=== PATIENT | female | born 1960 | race Hispanic/Latino ===

== ENCOUNTER 2024-12-08 06:37 | Inpatient (IN) | payer BC, MEDICARE, OTHER ==
[2024-12-08] VITALS (8 sets, daily range): BP systolic 98–130; BP diastolic 45–75; PULSE 78–88; RESP 16–20; TEMP 97.6–98.6; O2SAT 97
[~2024-12-08] VITALS: Ht 149.9 cm; Wt 85.7 kg
--- NOTE | 2024-12-08 06:56 | EKG ---
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 : 1960 Requested By: LISA GOSS Order Number: [id number] Reading MD: Bharathi Galicia Measurements Intervals [place] Rate: 98 P: 206 CT: 176 QRS: 27 QRSD: 190 T: 195 QT: 445 QTc: 569 Interpretive Statements Sinus or ectopic atrial rhythm Nonspecific Intraventricular Conduction Delay IVCD Compared to ECG 10/14/2022 07:14:14 Ectopic atrial rhythm now present Intraventricular conduction delay now present ST (T wave) deviation now present Sinus rhythm no longer present First degree AV block no longer present Electronically Signed On 12-08-2024 07:09:30 CDT by Bharathi Galicia Please click the below link to view image of tracing.
[2024-12-08 07:07] LABS: IMMATURE GRANULOCYTE ABSOLUTE 0.03 K/uL (0-1); NUCLEATED RED BLOOD CELLS 0.0 % (0.0-0.19); PLATELET COUNT (AUTO) 181 K/uL (130-400); RED BLOOD CELL COUNT(AUTO) 4.65 MIL/uL (4.00-5.50); RED CELL DISTRIBUTION WIDTH 13.7 % (11.0-15.5); WHITE BLOOD COUNT (AUTO) 9.1 K/uL (4.8-10.8)
[2024-12-08 07:18] LABS: CREATININE 0.7 mg/dL (0.5-1.0); GLOMERULAR FILTR. RATE CALC 95.0 mL/min (>90); SODIUM SERUM 138.0 mmol/L (136-145); UREA NITROGEN, BLOOD 6.0 mg/dL (7-18)
[2024-12-08 07:28] LABS: GLUCOSE,RANDOM 405.0 mg/dL (70-105)
--- NOTE | 2024-12-08 07:41 | HMCIMG ---
EXAM: CR Chest, single view. CLINICAL HISTORY: Shortness of breath COMPARISON: Prior chest radiograph dated October 15, 2022 FINDINGS: Poststernotomy status. Moderate cardiomegaly with bilateral hilar congestion. Patchy, ill-defined infiltrates in the bilateral lower lobes and subtle blunting of the bilateral costophrenic angle are probably a minimal bilateral pleural effusion. No evidence of pneumothorax. Stable 12 mm nodular density in the right upper zone. No acute osseous abnormality. Mild degenerative changes in the mid and lower thoracic spine. IMPRESSION: Poststernotomy status. Moderate cardiomegaly with bilateral hilar congestion. Patchy, ill-defined infiltrates in the bilateral lower lobes and subtle blunting of the bilateral costophrenic angle are probably a minimal bilateral pleural effusion. No evidence of pneumothorax. Stable 12 mm nodular density in the right upper zone. Compared to the prior study, there is a mild decrease in the right-sided pleural effusion and interval development of right lower lobe infiltrates. /[place]
[2024-12-08] MEDS: 0.9%NACL 1000ML 1,000 ML IV ONE (08:13)
[2024-12-08 10:14] LABS: INR 1.59 (0.85-1.15)
[2024-12-08 10:30] LABS: ASPARTATE AMINOTRANSFERASE 66.0 U/L (10-37); LACTATE DEHYDROGENASE 273.0 U/L (81-234); TOTAL PROTEIN, SERUM 7.3 g/dL (6.0-8.3)
--- NOTE | 2024-12-08 10:37 | HP ---
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 last night. Patient states that she woke up feeling short of breath with dizziness and she felt like she may have low sugar. Patient does not have a home glucometer but she states that due to her symptoms, she put some sugar in a glass of water and drank it to see if it relieves her symptoms. She continued to have symptoms of shortness of breath and generalized uneasiness and she drank some coffee to see if symptoms improve. Patient's symptoms did not improve prompting her to come to the ER for further evaluation. Patient denies any previous history of stroke or seizures. She has not been able to follow up with Cardiology as outpatient june and she has significant cardiac history including history of severe ischemic cardiomyopathy with LVEF of 20-25% from 2D echocardiogram from 2022, she has a history of mechanical aortic valve and coronary artery bypass grafting in 2004. She reports taking Coumadin 2 mg daily. She will is followed by PCP with regards to management of Coumadin. She denies any fevers, chills, or productive cough. She denies noticing significant swelling of the lower extremity or weight gain. She denies any pleurisy. On presentation to the hospital, patient was noted to be afebrile with T-max of 98.2 F, heart rate of 108, blood pressure of 138/76. Patient was saturating 90% on room air. Labs on presentation showed WBC count of 9100, hemoglobin of 14.4, platelet count of [id number]. BMP showed sodium of 138, potassium 3.8, chloride of 103, CO2 of 26, BUN of six, creatinine of 0.7, blood glucose of 405, BNP close to 1000, cardiac troponin showed high sensitivity troponin of 48. Chest x-ray showed cardiomegaly with bilateral hilar congestion and ill-defined infiltrates of the bilateral lobes with minimal pleural effusion. Patient was also noted to have 12 mm nodular density in the right upper lobe. Patient will be admitted for further treatment and management of acute on chronic systolic and diastolic heart failure exacerbation in the setting of known history of advanced cardiomyopathy. Blood sugars are uncontrolled, patient will be sliding on basal Lantus for further management. We will see how patient progresses in the next 2-3 days and we will obtain further cardiac workup and consultation with Cardiology will be requested this admission. REVIEW OF SYSTEMS CONSTITUTIONAL: Denies fevers, chills, or night sweats. No unintentional weight loss reported. NEUROLOGICAL: Denies headache, amaurosis fugax, motor weakness, sensory deficit, vertigo/spinning sensation, gait abnormalities, or tremors. ENT: No hearing loss, otalgia, otorrhea, rhinitis, rhinorrhea, hoarseness, or sore throat. CARDIOVASCULAR: Shortness of breath close to 4:00 a.m. today with generalized fatigue PULMONARY: Denies any shortness of breath, cough, phlegm/sputum, hemoptysis, pleuritic chest pain. SLEEP: Denies morning headaches, daytime somnolence or napping. Denies dif ficulty falling asleep, staying asleep, waking from sleep. Denies knowledge of snoring. GASTROINTESTINAL: Denies any type of dysphagia to either liquids or solids. Denies nausea, vomiting, pyrosis, early satiety, abdominal pain, diarrhea, constipation, or changes in stool consistency or caliber. Denies coffee-ground emesis, hematemesis, hematochezia, or melanotic stools. GENITOURINARY: Denies frequency, urgency, nocturia, hematuria or incontinence (Storage/Irritative symptoms.) Low urinary stream, straining to void, urinary intermittency or hesitancy, splitting of the voiding stream, terminal dribbling. ENDOCRINOLOGIC: Denies polyuria, polydipsia, polyphagia or heat/cold i ntolerances. HEMATOLOGIC: Denies thrombophilia/previous clots, or coagulopathy/bleeding disorders. ONCOLOGIC: Denies personal history of malignancy. DERMATOLOGIC: Denies rashes or pruritus. PSYCHIATRIC: Denies any suicidal or homicidal ideation. Denies hallucinations. 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 Patient is sitting up in the bed, she is obese NEUROLOGICAL: Cranial nerves II-XII grossly intact. Motor is 5/5 in bilateral upper and lower extremities proximal to distal. No sensory deficits. HEENT: Face is symmetric. Pupils are equal and reactive. Extraocular movements are intact. NECK: Supple. No JVD. No thyromegaly. No submental, submandibular, pre- /postauricular, occipital or supraclavicular lymphadenopathy. CHEST: Normal chest expansion. No Telemetry. LUNGS: Crackles noted of bilateral lung bases CARDIOVASCULAR: Regular. Mechanical click auscultated. No appreciable rubs, murmurs or gallops. ABDOMEN: Soft, nontender, and nondistended. There is no rebound, voluntary guarding, or rigidity. : Deferred. No [place]gu[place]. EXTREMITIES: Trace edema of the lower extremities. No clubbing. Good capillary refill. SKIN: No skin breakdown. Vital Sign (Last 24 Hours) 12/08/24 12/08/24 06:58 09:00 Temp 98.2 Pulse 74 Resp 20 B/P (MAP) 124/58 Pulse Ox 99 O2 Delivery Room Air* O2 Flow Rate 0 FiO2 21 LABS: Laboratory: Test 12/08/24 07:00 Range/Units White Blood Count 9.1 4.8-10.8 K/uL Red Blood Count 4.65 4.00-5.50 MIL/uL Hemoglobin 14.4 12.0-16.0 g/dL Hematocrit 43.0 36-48 % Mean Corpuscular Volume 92.5 79-99 fL Mean Corpuscular Hemoglobin 31.0 27.0-33.0 pg Mean Corpuscular Hemoglobin Concent 33.5 32.0-36.0 g/dL Red Cell Distribution Width 13.7 11.0-15.5 % Platelet Count 181 130-400 K/uL Mean Platelet Volume 10.7 H 7.5-10.5 fL Immature Granulocyte % (Auto) 0.3 0-1 % Neutrophils (%) (Auto) 73.4 40.0-77.0 % Lymphocytes (%) (Auto) 18.9 L 21.0-51.0 % Monocytes (%) (Auto) 5.3 3.0-13.0 % Eosinophils (%) (Auto) 1.6 0.0-8.0 % Basophils (%) (Auto) 0.5 0.0-5.0 % Neutrophils # (Auto) 6.7 1.8-7.7 K/uL Lymphocytes # (Auto) 1.7 1.0-4.8 K/uL Monocytes # (Auto) 0.5 0.1-1.0 K/uL Eosinophils # (Auto) 0.15 0.00-0.70 K/uL Basophils # (Auto) 0.05 0.00-0.20 K/uL Absolute Immature Granulocyte (auto 0.03 0-1 K/uL Nucleated Red Blood Cells 0.0 0.0-0.19 % Prothrombin Time 16.1 H 9.6-11.6 SEC Prothromb Time International Ratio 1.59 H 0.85-1.15 Activated Partial Thromboplast Time 30.5 26.3-35.5 SEC Sodium Level 138 136-145 mmol/L Potassium Level 3.8 3.5-5.1 mmol/L Chloride Level 103 101-111 mmol/L Carbon Dioxide Level 26 21-32 mmol/L Blood Urea Nitrogen 6 L 7-18 mg/dL Creatinine 0.7 0.5-1.0 mg/dL Glomerular Filtration Rate Calc 95 >90 mL/min Random Glucose 405 *H 70-105 mg/dL Total Calcium 9.0 8.5-10.1 mg/dL Troponin I High Sensitivity 48 4-50 ng/L B-Type Natriuretic Peptide 954 H 0-100 pg/mL Current Medications Medications (Trade) Dose Ordered Sig/Eliecer Route PRN Reason Start Time Stop Time Status Last Admin Dose Admin Acetaminophen (TYLenol 325MG TAB) 650 mg Q6H PRN PO MILD PAIN (1-3) 12/08/24 10:00 01/07/25 09:59 Budesonide (Pulmicort 0.5 Mg/2ml) 0.5 mg BIDRESP IH 12/08/24 18:00 01/07/25 17:59 Famotidine (Pepcid 20mg Tab) 20 mg BID PO 12/08/24 21:00 01/07/25 20:59 Furosemide (LASix 40MG VIAL) 40 mg BID IV 12/08/24 21:00 01/07/25 20:59 Insulin Human Regular (humuLIN R 100 UNIT/ML 3ML) INSULIN SLIDING SCAL... ACHS SQ 12/08/24 11:30 01/07/25 11:29 Lisinopril (Prinivil 10mg) 10 mg HS PO 12/08/24 21:00 01/07/25 20:59 Magnesium Sulfate 50 ml @ 0 mls/hr PROTOCOL IV 12/08/24 10:00 01/07/25 09:59 Ondansetron HCl (zoFRAN 4MG INJ) 4 mg Q6H PRN IVP NAUSEA/VOMITING 12/08/24 10:00 01/07/25 09:59 Potassium Chloride 100 ml @ 100 mls/hr AD PRN IV POTASSIUM PROTOCOL 12/08/24 10:00 01/07/25 09:59 Potassium Chloride (K-Dur/Klor-Con 20meq) 20 meq AD PRN PO POTASSIUM PROTOCOL 12/08/24 10:00 01/07/25 09:59 Potassium Chloride (KCl 10% Elixir 20meq/15ml) 20 meq AD PRN PO POTASSIUM PROTOCOL 12/08/24 10:00 01/07/25 09:59 DIAGNOSTICS / RADIOLOGY: SERVICE [id number] REASON: SHORTNESS OF BREATH ORDERING PHYSICIAN: LISA GOSS MD PROCEDURE: CXR1VW - CHEST 1VW EXAM: CR Chest, single view. CLINICAL HISTORY: Shortness of breath COMPARISON: Prior chest radiograph dated October 15, 2022 FINDINGS: Poststernotomy status. Moderate cardiomegaly with bilateral hilar congestion. Patchy, ill-defined infiltrates in the bilateral lower lobes and subtle blunting of the bilateral costophrenic angle are probably a minimal bilateral pleural effusion. No evidence of pneumothorax. Stable 12 mm nodular density in the right upper zone. No acute osseous abnormality. Mild degenerative changes in the mid and lower thoracic spine. IMPRESSION: Poststernotomy status. Moderate cardiomegaly with bilateral hilar congestion. Patchy, ill-defined infiltrates in the bilateral lower lobes and subtle blunting of the bilateral costophrenic angle are probably a minimal bilateral pleural effusion. No evidence of pneumothorax. Stable 12 mm nodular density in the right upper zone. Compared to the prior study, there is a mild decrease in the right-sided pleural effusion and interval development of right lower lobe infiltrates. /[place] DICTATED BY: KENNY VALDERRAMA Jr., MD DATE: 12/08/24840 ELECTRONICALLY SIGNED BY: KENNY VALDERRAMA Jr., MD DATE: 12/08/24840 ASSESSMENT: Acute on chronic systolic and diastolic heart failure exacerbation with LVEF of 20-25 % from 2D echo in 2022, POA Cardiogenic edema with hypoxemic respiratory failure, POA Pleural Effusion, Bilateral, mild, POA Uncontrolled hyperglycemia, POA Poor outpatient cardiac follow up POA History of coronary artery bypass grafting in 2004, POA History of mechanical aortic valve placement in 2004, POA History of possible thrombus involving the left ventricular apex from 2D echocardiogram from 2022, POA History of chronic anticoagulation with warfarin for mechanical valve, POA Hypertension, POA History of right upper lobe pulmonary nodule measuring 12 mm, POA Poorly controlled type 2 diabetes mellitus, POA Obesity, POA PLAN: Patient will be Admitted to cardiac telemetry floor, patient has had poor outpatient follow up with Cardiology over the last two years Patient will be placed on fluid restrictions of 1.5 L daily We will start patient on diuresis with Lasix 40 mg twice daily Potassium will be maintain greater than four and magnesium greater than two We will obtain a CT chest without contrast for assessment of infiltrates as well as12 mm right upper lobe pulmonary nodule noted on chest x-ray, nodule is stable in size per radiology from prior x-rays We will check a flu and COVID panel We will check a PT INR level, and adjust dose of warfarin based on INR, will increase dose of warfarin to 3 mg instead of 2 mg, will d/w cardiology about bridging with Heparin or lovenox until INR > 2 We will obtain a 2D echocardiogram to assess LVEF, we will assess to see if there is any findings of apical thrombus noted, will assess mechanical valve Consultation with Cardiology will be requested We will check hemoglobin A1c level, we will check TSH, we will start patient on sliding scale insulin a.c. and hs, we will start patient on basal Lantus as well due to uncontrolled hyperglycemia All labs will be repeated in the morning, we will see how patient progresses in the next 48-72 hours Date of service: 12/08/2024 Plan of care was discussed with patient at bedside, Pablito Valdovinos MD, Advanced Care Planning: Which of the following were discussed: Hospice care: Yes __ No _x_ Therapeutic options: Yes _x_ No __ Advance directives: Yes _x_ No __ Other discussions: Discussed with who?: Patient Voluntary nature of this service was explained to the patient? Yes _x_ No __ Amount of time spent: 20 minutes PABLITO VALDOVINOS MD Dec 08, 2024 10:37
--- NOTE | 2024-12-08 10:59 | ERN ---
ED Note History of Present Illness Stated Complaint: SUSPECTED HEART FAILURE EXACERBATION,UNCONTROLLED Chief Complaint: Shortness of Breath Time Seen by MD: 07:31 Dictation: 64-year-old female presenting to the emergency department with shortness a breath over the past few days this morning woke up diaphoretic and feeling weak presenting to the emergency department for evaluation patient reports she has got history of heart problems and diabetes. Allergies: Coded Allergies: No Known Drug Allergies (Unverified Allergy, Unknown, 10/13/22) Past Medical History Past Medical History: Diabetes-Type II, High Cholesterol, Hypertension Surgical History: None Review of System Dictation Constitutional: Negative for fever,chills, and weight loss Eyes: Negative for injury, pain,redness, and discharge ENT: Negative for injury,pain or swelling Cardiovascular: Negative for chest pain, palpitations, and edema Respiratory: Per HPI Abdomen/GI: Negative for abdominal pain, nausea, vomiting, diarrhea, and constipation Back: Negative for injury and pain : Negative for injury, bleeding and discharge MS/Extremity: Negative for injury and deformity Skin: Negative for rash, and discoloration Neuro: Per HPI Initial Vital Sign VS Vital Signs Date Time Temp Pulse Resp B/P (MAP) Pulse Ox O2 Delivery O2 Flow Rate FiO2 12/08/24 06:39 108 20 138/76 90 Room Air 0 12/08/24 06:58 98.2 32 Physical Exam Dictation General: awake, alert, NAD Head/Face: Normocephalic, atraumatic Eyes: PERRL, EOMI, vision at baseline ENT: oral cavity clear, TMs clear, no signs of infection Neck: Trachea midline, supple, no nuchal rigidity Cardiovascular: RRR, normal S1/S2, No MRGs, no JVD Respiratory: Bilateral crackles at the bases mild tachypnea Abdomen: Soft, non-tender, non-distended, normal bowel sounds, no guarding or rebound. Skin: Warm, dry, normal turgor, no rash MS/Extremity: Pulses equal, no cyanosis, neurovascular intact, FROM Neuro: COAx4, GCS 15, strength 5/5, CN 2-12 intact, normal cerebellar exam, normal gait, Psych: Normal behavior, mood, and affect normal Results (Laboratory/Radiology) Laboratory/Radiology Laboratory Tests Test 12/08/24 07:00 White Blood Count 9.1 K/uL (4.8-10.8) Red Blood Count 4.65 MIL/uL (4.00-5.50) Hemoglobin 14.4 g/dL (12.0-16.0) Hematocrit 43.0 % (36-48) Mean Corpuscular Volume 92.5 fL (79-99) Mean Corpuscular Hemoglobin 31.0 pg (27.0-33.0) Mean Corpuscular Hemoglobin Concent 33.5 g/dL (32.0-36.0) Red Cell Distribution Width 13.7 % (11.0-15.5) Platelet Count 181 K/uL (130-400) Mean Platelet Volume 10.7 fL (7.5-10.5) H Immature Granulocyte % (Auto) 0.3 % (0-1) Neutrophils (%) (Auto) 73.4 % (40.0-77.0) Lymphocytes (%) (Auto) 18.9 % (21.0-51.0) L Monocytes (%) (Auto) 5.3 % (3.0-13.0) Eosinophils (%) (Auto) 1.6 % (0.0-8.0) Basophils (%) (Auto) 0.5 % (0.0-5.0) Neutrophils # (Auto) 6.7 K/uL (1.8-7.7) Lymphocytes # (Auto) 1.7 K/uL (1.0-4.8) Monocytes # (Auto) 0.5 K/uL (0.1-1.0) Eosinophils # (Auto) 0.15 K/uL (0.00-0.70) Basophils # (Auto) 0.05 K/uL (0.00-0.20) Absolute Immature Granulocyte (auto 0.03 K/uL (0-1) Nucleated Red Blood Cells 0.0 % (0.0-0.19) Prothrombin Time 16.1 SEC (9.6-11.6) H Prothromb Time International Ratio 1.59 (0.85-1.15) H Activated Partial Thromboplast Time 30.5 SEC (26.3-35.5) Sodium Level 138 mmol/L (136-145) Potassium Level 3.8 mmol/L (3.5-5.1) Chloride Level 103 mmol/L (101-111) Carbon Dioxide Level 26 mmol/L (21-32) Blood Urea Nitrogen 6 mg/dL (7-18) L Creatinine 0.7 mg/dL (0.5-1.0) Glomerular Filtration Rate Calc 95 mL/min (>90) Random Glucose 405 mg/dL (70-105) *H Hemoglobin A1c 12.9 % (4.0-6.0) H Estimated Average Glucose (eAG) 324 mg/dL (70-126) H Total Calcium 9.0 mg/dL (8.5-10.1) Magnesium Level 1.70 mg/dL (1.80-2.40) L Total Bilirubin 1.6 mg/dL (0.2-1.0) H Direct Bilirubin 0.3 mg/dL (0.0-0.3) Aspartate Amino Transf (AST/SGOT) 66 U/L (10-37) H Alanine Aminotransferase (ALT/SGPT) 77 U/L (12-78) Alkaline Phosphatase 109 U/L (50-136) Lactate Dehydrogenase 273 U/L (81-234) H Troponin I High Sensitivity 48 ng/L (4-50) C-Reactive Protein, Quantitative 6.80 mg/L (0.5-3.0) H B-Type Natriuretic Peptide 954 pg/mL (0-100) H Total Protein 7.3 g/dL (6.0-8.3) Albumin 3.8 g/dL (3.5-5.0) Procalcitonin < 0.05 ng/mL (0.05-0.5) L Thyroid Stimulating Hormone (TSH) 4.33 uIU/mL (0.36-3.74) H Labs Reviewed?: Yes EKG Comment: Heart rate 98 ventricularly paced left bundle-branch block no STEMI ED Course ED Course Orders Procedure Category Date Status Time Cbc With Differential LAB 12/08/24 Complete 06:47 Basic Metabolic Panel LAB 12/08/24 Complete 06:47 12 Lead Ekg Tracing- EKG 12/08/24 Resulted Technical 06:47 Troponin I High LAB 12/08/24 Complete Sensitivity 06:47 Chest 1vw RAD 12/08/24 Resulted 06:47 Saline Lock Iv CPOE 12/08/24 Transmitted 06:47 Cardiac Monitoring CPOE 12/08/24 Transmitted 06:47 Pulse Ox(Continuous) RT 12/08/24 Transmitted 06:47 Oxygen By Nc/Pulse Ox CPOE 12/08/24 Transmitted 07:08 B-Type Natriuretic LAB 12/08/24 Complete Peptide 07:32 Insulin Regular, PHA 12/08/24 Complete Human 3ml (Humulin R 08:00 Furosemide 40mg Vial PHA 12/08/24 Complete (Lasix 40mg Vial) 10:00 Admit Orders ADM 12/08/24 Transmitted 09:53 Telemetry Monitoring CPOE 12/08/24 Transmitted 09:53 Fall Precautions CPOE 12/08/24 Transmitted 09:53 Aspiration Precautions CPOE 12/08/24 Transmitted 09:53 Elevate Hob At 30 CPOE 12/08/24 Transmitted Degrees 09:53 Scd Both Legs While CPOE 12/08/24 Transmitted In Bed 09:53 Budesonide 0.5 Mg/2 PHA 12/08/24 In Process Ml Inh (Pulmicort 0. 18:00 Hemoglobin A1c LAB 12/08/24 Complete 09:55 Thyroid Stimulating LAB 12/08/24 Complete Hormone 09:55 Hepatic Function Panel LAB 12/08/24 Complete 09:55 Crp Quantitative LAB 12/08/24 Complete 09:55 Procalcitonin LAB 12/08/24 Complete 09:55 Lactate Dehydrogenase LAB 12/08/24 Complete 09:55 Cardiology Consult CONPHYSVC 12/08/24 Transmitted 09:56 Initiate Po BECKI 12/08/24 In Process Hypokalemia Protoc 09:56 Potassium Chloride PHA 12/08/24 In Process 20meq/100ml (Potassiu 10:00 Potassium Chl 10% PHA 12/08/24 In Process Elixir 20meq (Kcl 10% 10:00 Potassium Chloride PHA 12/08/24 In Process 20meq Er (K-Dur/Klor- 10:00 Notify Physician If CPOE 12/08/24 Transmitted There Is 09:56 Notify Md On The Next CPOE 12/08/24 Transmitted 09:56 Notify Md On The CPOE 12/08/24 Transmitted Next(Cont.) 09:56 Magnesium 2gm Premix PHA 12/08/24 In Process 50ml (Magnesium 2gm 10:00 Acetaminophen 325 Tab PHA 12/08/24 In Process (Tylenol 325mg Tab 10:00 Ondansetron 4mg Inj PHA 12/08/24 In Process (Zofran 4mg Inj) 10:00 Endocrinology Consult CONPHYSVC 12/08/24 Transmitted 09:58 Daily Fluid Intake CPOE 12/08/24 Transmitted Restriction 09:58 Echo 2-D Complete ECHO 12/08/24 Logged 09:58 Pulse Ox(Continuous) RT 12/08/24 Transmitted 09:58 Ct Chest W/O Contrast CT 12/08/24 Taken 09:58 Pt And Ptt LAB 12/08/24 Complete 09:58 Initiate BECKI 12/08/24 In Process Hyperglycemia Protoco 09:58 Insulin Regular, PHA 12/08/24 In Process Human 3ml (Humulin R 11:30 Consistent Carb DIET 12/08/24 Transmitted Lunch Furosemide 40mg Vial PHA 12/08/24 In Process (Lasix 40mg Vial) 21:00 Strict I&O CPOE 12/08/24 Transmitted 09:58 Daily Weights CPOE 12/08/24 Transmitted 09:58 Urinalysis Profile LAB 12/08/24 Logged 10:03 Drug Screen Urine LAB 12/08/24 Logged 10:03 *Nursing CPOE 12/08/24 Transmitted Communication: 10:03 Famotidine 20mg Tab PHA 12/08/24 In Process (Pepcid 20mg Tab) 21:00 Lisinopril 10mg PHA 12/08/24 In Process (Prinivil 10mg) 21:00 Influenza Type A & B, LAB 12/08/24 Logged Rapid 10:17 Covid Rna Naat LAB 12/08/24 Logged 10:17 Magnesium LAB 12/08/24 In Process 10:30 Cbc With Differential LAB 12/09/24 Verified 04:00 Comprehensive LAB 12/09/24 Verified Metabolic Panel 04:00 Magnesium LAB 12/09/24 Verified 04:00 Warfarin Sodium PHA 12/08/24 Logged (Coumadin) 17:00 Insulin PHA 12/08/24 In Process Glargine,Hum.Rec.Anlog 21:00 Current Medications Medications (Trade) Dose Ordered Sig/Eliecer Route PRN Reason Start Time Stop Time Status Last Admin Dose Admin Insulin Human Regular (humuLIN R 100 UNIT/ML 3ML) 5 unit ONCE ONCE SQ 12/08/24 08:00 12/08/24 08:01 DC 12/08/24 08:07 Insulin Human Regular (humuLIN R 100 UNIT/ML 3ML) 10 unit ONCE ONCE IV 12/08/24 08:00 12/08/24 07:44 DC Sodium Chloride 1,000 ml @ 0 mls/hr ONCE ONCE IV 12/08/24 08:00 12/08/24 09:33 DC 12/08/24 08:13 Vital Signs Date Time Temp Pulse Resp B/P (MAP) Pulse Ox O2 Delivery O2 Flow Rate FiO2 12/08/24 09:00 74 20 124/58 99 Room Air* 0 21 12/08/24 07:23 86 20 117/74 100 Room Air* 0 21 12/08/24 06:58 98.2 65 22 140/80 100 Nasal Cannula* 3 32 12/08/24 06:39 108 20 138/76 90 Room Air 0 Medical Decision Making MDM MDM: Differential diagnosis: Rationale: Tests considered and ordered secondary to shared decision making include: labs, ECG and radiology Previous outside records reviewed: Old ER visits. Risk of complication and/or morbidity or mortality of patient management: None Medications-Per medication reconciliation Need for hospitalization: Patient does meet criteria for hospitalization. Need for emergency major/minor surgery: No There are no social concerns with this patient. Prescription drug management Prescriptions will include symptomatic care Patient's prior external medical records from other ER visits were reviewed by me as indicated. Prior testing and results from previous visits were reviewed. Prior tests were taken into account with medical decision making and resource utilization, independent historian/historians were used to obtain complete medical history. I independently interpreted the test that were performed, results were reviewed by me and considered findings on radiology if ordered. Medical management and examination interpretation discussions were had by me with other qualified healthcare professionals as indicated for the patient's care. 64-year-old female with decompensated heart failure, exacerbation admitting for further care and evaluation and diuresis. DX & DISP Disposition: Inpatient Departure Impression: Primary Impression: Acute decompensated heart failure Condition: Stable Referrals: SELF,REFERRAL (PCP) RUBI BECERRA MD Dec 08, 2024 10:59
--- NOTE | 2024-12-08 12:12 | CONS ---
CONSULT NOTE: Endocrinology Consult Chief complaint:SOB Reason for consult: uncontrolled dm-2 DOS: 12/08/24 HISTORY OF PRESENT ILLNESS: This is a 64-year-old female with underlying history of hypertension, previous history of coronary artery bypass grafting and mechanical aortic valve replacement in 2004, history of chronic anticoagulation with Coumadin, ischemic cardiomyopathy with last known LVEF of 20-25%, possible history of apical left ventricular thrombus noted on 2D echo from 2022, type 2 diabetes mellitus who presented to the ER for further evaluation of acute onset of shortness of breath Patient's symptoms do not improve prompting her to come to the ER for further evaluation. Patient denies any previous history of stroke or seizures. She has not been able to follow up with Cardiology as outpatient june and she has significant cardiac history including history of severe ischemic cardiomyopathy with LVEF of 20-25% from 2D echocardiogram from 2022, she has a history of mechanical aortic valve and coronary artery bypass grafting in 2004. She reports taking Coumadin 2 mg daily. She will is followed by PCP with regards to management of Coumadin. She denies any fevers, chills, or productive cough. She denies noticing significant swelling of the lower extremity or weight gain. She denies any pleurisy. On presentation to the hospital, patient was noted to be afebrile with T-max of 98.2 F, heart rate of 108, blood pressure of 138/76. Patient was saturating 9 0% on room air. Labs on presentation showed WBC count of 9100, hemoglobin of 14.4, platelet count of 075951. BMP showed sodium of 138, potassium 3.8, chloride of 103, CO2 of 26, BUN of six, creatinine of 0.7, blood glucose of 405, BNP close to 1000, cardiac troponin showed high sensitivity troponin of 48. Chest x-ray showed cardiomegaly with bilateral hilar congestion and ill-defined infiltrates of the bilateral lobes with minimal pleural effusion. Patient was also noted to have 12 mm nodular density in the right upper lobe. Home diabetic regimen: she does not take any medications Hba1c 12.9% REVIEW OF SYSTEMS CONSTITUTIONAL: Denies fevers, chills, or night sweats. No unintentional weight loss reported. NEUROLOGICAL: Denies headache, amaurosis fugax, motor weakness, sensory deficit, vertigo/spinning sensation, gait abnormalities, or tremors. ENT: No hearing loss, otalgia, otorrhea, rhinitis, rhinorrhea, hoarseness, or sore throat. CARDIOVASCULAR: Shortness of breath close to 4:00 a.m. today with generalized fatigue PULMONARY: Denies any shortness of breath, cough, phlegm/sputum, hemoptysis, pleuritic chest pain. SLEEP: Denies morning headaches, daytime somnolence or napping. Denies difficulty falling asleep, staying asleep, waking from sleep. Denies knowledge of snoring. GASTROINTESTINAL: Denies any type of dysphagia to either liquids or solids. Denies nausea, vomiting, pyrosis, early satiety, abdominal pain, diarrhea, constipation, or changes in stool consistency or caliber. Denies coffee-ground emesis, hematemesis, hematochezia, or melanotic stools. GENITOURINARY: Denies frequency, urgency, nocturia, hematuria or incontinence (Storage/Irritative symptoms.) Low urinary stream, straining to void, urinary intermittency or hesitancy, splitting of the voiding stream, terminal dribbling. ENDOCRINOLOGIC: Denies polyuria, polydipsia, polyphagia or heat/cold intolerances. HEMATOLOGIC: Denies thrombophilia/previous clots, or coagulopathy/bleeding disorders. ONCOLOGIC: Denies personal history of malignancy. DERMATOLOGIC: Denies rashes or pruritus. PSYCHIATRIC: Denies any suicidal or homicidal ideation. Denies hallucinations. 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 Patient is sitting up in the bed, she is obese NEUROLOGICAL: Cranial nerves II-XII grossly intact. Motor is 5/5 in bilateral upper and lower extremities proximal to distal. No sensory deficits. HEENT: Face is symmetric. Pupils are equal and reactive. Extraocular movements are intact. NECK: Supple. No JVD. No thyromegaly. No submental, submandibular, pre- /postauricular, occipital or supraclavicular lymphadenopathy. CHEST: Normal chest expansion. No Telemetry. LUNGS: Crackles noted of bilateral lung bases CARDIOVASCULAR: Regular. Mechanical click auscultated. No appreciable rubs, murmurs or gallops. ABDOMEN: Soft, nontender, and nondistended. There is no rebound, voluntary guarding, or rigidity. : Deferred. No Salguero. EXTREMITIES: Trace edema of the lower extremities. No clubbing. Good capillary refill. SKIN: No skin breakdown. DIAGNOSTICS / RADIOLOGY: SERVICE 6 REASON: SHORTNESS OF BREATH ORDERING PHYSICIAN: LISA GOSS MD PROCEDURE: CXR1VW - CHEST 1VW EXAM: CR Chest, single view. CLINICAL HISTORY: Shortness of breath COMPARISON: Prior chest radiograph dated October 15, 2022 FINDINGS: Poststernotomy status. Moderate cardiomegaly with bilateral hilar congestion. Patchy, ill-defined infiltrates in the bilateral lower lobes and subtle blunting of the bilateral costophrenic angle are probably a minimal bilateral pleural effusion. No evidence of pneumothorax. Stable 12 mm nodular density in the right upper zone. No acute osseous abnormality. Mild degenerative changes in the mid and lower thoracic spine. IMPRESSION: Poststernotomy status. Moderate cardiomegaly with bilateral hilar congestion. Patchy, ill-defined infiltrates in the bilateral lower lobes and subtle blunting of the bilateral costophrenic angle are probably a minimal bilateral pleural effusion. No evidence of pneumothorax. Stable 12 mm nodular density in the right upper zone. Compared to the prior study, there is a mild decrease in the right-sided pleural effusion and interval development of right lower lobe infiltrates. /[place] DICTATED BY: KENNY VALDERRAMA Jr., MD DATE: 12/08/24840 ELECTRONICALLY SIGNED BY: KENNY VALDERRAMA Jr., MD DATE: 12/08/24840 ASSESSMENT: Uncontrolled hyperglycemia, POA Home diabetic regimen: she does not take any medications Hba1c 12.9% glucose runs greater than 200 mg/dl. Acute on chronic systolic and diastolic heart failure exacerbation with LVEF of 20-25 % from 2D echo in 2022, POA Cardiogenic edema with hypoxemic respiratory failure, POA For outpatient cardiac follow up POA History of coronary artery bypass grafting in 2004, POA History of mechanical aortic valve placement in 2004, POA History of possible thrombus involving the left ventricular apex from 2D echocardiogram from , POA History of chronic anticoagulation with warfarin for mechanical valve, POA Hypertension, POA History of right upper lobe pulmonary nodule measuring 12 mm, POA Poorly controlled type 2 diabetes mellitus, POA Obesity, POA PLAN: increase Lantus to 30 units daily and adjust for fasting glucose. start Regular insulin 10 units three times before meals and adjust for post- prandial glucose. Continue high dose sliding scale insulin. Monitor glucose q x 6 hourly. Continue carb consistent diet. Keep glucose less than 180 mg/dl. Patient will need lantus 30 units daily, jardiance 25 mg daily and metformin 1000 mg bid at discharge. Thanks for allowing me to participate in patient care and will continue to follow up. Vital Signs 12/08/24 12/08/24 06:58 09:00 Temp 98.2 Pulse 74 Resp 20 B/P (MAP) 124/58 Pulse Ox 99 O2 Delivery Room Air* O2 Flow Rate 0 FiO2 21 Hematology Labs: Test 12/08/24 07:00 Range/Units White Blood Count 9.1 4.8-10.8 K/uL Red Blood Count 4.65 4.00-5.50 MIL/uL Hemoglobin 14.4 12.0-16.0 g/dL Hematocrit 43.0 36-48 % Mean Corpuscular Volume 92.5 79-99 fL Mean Corpuscular Hemoglobin 31.0 27.0-33.0 pg Mean Corpuscular Hemoglobin Concent 33.5 32.0-36.0 g/dL Red Cell Distribution Width 13.7 11.0-15.5 % Platelet Count 181 130-400 K/uL Mean Platelet Volume 10.7 H 7.5-10.5 fL Immature Granulocyte % (Auto) 0.3 0-1 % Neutrophils (%) (Auto) 73.4 40.0-77.0 % Lymphocytes (%) (Auto) 18.9 L 21.0-51.0 % Monocytes (%) (Auto) 5.3 3.0-13.0 % Eosinophils (%) (Auto) 1.6 0.0-8.0 % Basophils (%) (Auto) 0.5 0.0-5.0 % Neutrophils # (Auto) 6.7 1.8-7.7 K/uL Lymphocytes # (Auto) 1.7 1.0-4.8 K/uL Monocytes # (Auto) 0.5 0.1-1.0 K/uL Eosinophils # (Auto) 0.15 0.00-0.70 K/uL Basophils # (Auto) 0.05 0.00-0.20 K/uL Absolute Immature Granulocyte (auto 0.03 0-1 K/uL Nucleated Red Blood Cells 0.0 0.0-0.19 % Chemistry Labs: Test 12/08/24 11:26 12/08/24 07:00 Range/Units Whole Blood Glucose 242 H 70-110 MG/DL Sodium Level 138 136-145 mmol/L Potassium Level 3.8 3.5-5.1 mmol/L Chloride Level 103 101-111 mmol/L Carbon Dioxide Level 26 21-32 mmol/L Blood Urea Nitrogen 6 L 7-18 mg/dL Creatinine 0.7 0.5-1.0 mg/dL Glomerular Filtration Rate Calc 95 >90 mL/min Random Glucose 405 *H 70-105 mg/dL Hemoglobin A1c 12.9 H 4.0-6.0 % Estimated Average Glucose (eAG) 324 H 70-126 mg/dL Total Calcium 9.0 8.5-10.1 mg/dL Magnesium Level 1.70 L 1.80-2.40 mg/dL Total Bilirubin 1.6 H 0.2-1.0 mg/dL Direct Bilirubin 0.3 0.0-0.3 mg/dL Aspartate Amino Transf (AST/SGOT) 66 H 10-37 U/L Alanine Aminotransferase (ALT/SGPT) 77 12-78 U/L Alkaline Phosphatase 109 50-136 U/L Lactate Dehydrogenase 273 H 81-234 U/L Troponin I High Sensitivity 48 4-50 ng/L C-Reactive Protein, Quantitative 6.80 H 0.5-3.0 mg/L B-Type Natriuretic Peptide 954 H 0-100 pg/mL Total Protein 7.3 6.0-8.3 g/dL Albumin 3.8 3.5-5.0 g/dL Procalcitonin < 0.05 L 0.05-0.5 ng/mL Thyroid Stimulating Hormone (TSH) 4.33 H 0.36-3.74 uIU/mL Coagulation Labs: Test 12/08/24 07:00 Range/Units Prothrombin Time 16.1 H 9.6-11.6 SEC Prothromb Time International Ratio 1.59 H 0.85-1.15 Activated Partial Thromboplast Time 30.5 26.3-35.5 SEC Current Medications Medications (Trade) Dose Ordered Sig/Eliecer Route Start Time Stop Time Status Last Admin Dose Admin Budesonide (Pulmicort 0.5 Mg/2ml) 0.5 mg BIDRESP IH 12/08/24 18:00 01/07/25 17:59 Famotidine (Pepcid 20mg Tab) 20 mg BID PO 12/08/24 21:00 01/07/25 20:59 Furosemide (LASix 40MG VIAL) 40 mg BID IV 12/08/24 21:00 01/07/25 20:59 Insulin Glargine (LANtus 100 UNITS/ML 10 ML VIAL) 15 units HS SQ 12/08/24 21:00 01/07/25 20:59 Insulin Human Regular (humuLIN R 100 UNIT/ML 3ML) INSULIN SLIDING SCAL... ACHS SQ 12/08/24 11:30 01/07/25 11:29 12/08/24 11:36 8 UNIT Lisinopril (Prinivil 10mg) 10 mg HS PO 12/08/24 21:00 01/07/25 20:59 Magnesium Sulfate 50 ml @ 0 mls/hr PROTOCOL IV 12/08/24 10:00 01/07/25 09:59 Warfarin Sodium (Coumadin) 3 mg WARF PO 12/08/24 17:00 12/15/24 16:59 MARYBEL MARINELLI MD Dec 08, 2024 12:12
[2024-12-08 12:20] LABS: SARS-CoV-2, RNA, NAAT NEGATIVE SARS CoV-2 (NEGATIVE)
[2024-12-08 12:25] LABS: INFLUENZA TYPE A Negative For Type A (NEGATIVE); INFLUENZA TYPE B Negative For Type B (NEGATIVE)
--- NOTE | 2024-12-08 12:25 | NUR ---
ATTEMPTED TO CALL REPORT AT THIS TIME; NURSE IS OUT TO LUNCH AT THIS TIME
--- NOTE | 2024-12-08 13:44 | NUR ---
GAVE REPORT TO YOLI AT THIS TIME.
--- NOTE | 2024-12-08 14:08 | NUR ---
DCP: HOME Pt states she bought a home with her close friend Alex Easley [phone] and it is his name because she did not have "papers" at time of purchase, but she had the money. Now she is a [place] resident. Pt states they are not a couple, hey are just very good friends that have always helped each out. 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 Pt reports she does no qualify for any [facility] assistance, has no insurance and goes to [facility] for medical care and meds. Pt independent of all AdLS and home management. Pt has 4 sons who all live in [facility]. Pt has no Dme. Pt reports she has hx of frequent falls, has had 4-5 this year. Pt stats she will [place] home at [place] Addendum: 12/08/24 at 1425 by FREIDA IBRAHIM Amended: Links added.
--- NOTE | 2024-12-08 14:11 | CONS ---
[facility] CARDIOLOGY CONSULTATION REPORT Cardiology consultation note dictated for Claudia Delvalle MD Primary zyglo inspector: Mike Majano MD Date Patient Seen: Dec 08, 2024 Time of Visit: 13:53 Requesting Physician: Jackson Valdovinos MD Reason for Consultation: CHF History of Present Illness: This is a 64-year-old female with a past medical history of hypertension, hyper lipidemia, multivessel CAD s/p CABG with mechanical AVR in unknown year, on chronic anticoagulation with warfarin, LVEF of 20-25%, stage II diastolic dysfunction, and possible thrombus in the LV apex via 2D echo on 10/16/2022, Lexiscan stress test on 10/16/2022 with fixed defect in the inferior, anteroseptal, and inferolateral bermudez consistent with scar, LVEF of 37%, with normal TID, morbid obesity, and noncompliance who presented to the ED with complaints of shortness of breath and tremors early this morning. Cardiology has been consulted for CHF. The patient endorsed a 15 minute episode of diaphoresis, unsteadiness, general body weakness, and shortness of breath that was self resolving. She initially thought her blood sugar was low and drank some sugar water but symptoms did not improve prompted her to seek medical attention. BNP on admission of 954. Chest x-ray demonstrated small bilateral pleural effusions, pending CT of the chest. Troponin of 48. EKG on admission demonstrated sinus or ectopic atrial rhythm with a heart rate of 98 bpm with a left bundle-branch block and IVCD. 2D echocardiogram is pending. INR of 1.59. The patient did admit to a near syncopal episode approximately 3 months ago in which she became diaphoretic and dizzy after walking home and fell without losing consciousness. She did not seek evaluation. She states she can walk approximately 8 city blocks daily to and from work without anginal equivalents. Past Medical History: As Per HPI and summarized below Past Surgical History: CABG with mechanical AVR Family History: Noncontributory Social History: The patient lives alone. Habits: The patient denies alcohol, tobacco, or illicit drug use. Home Meds: Coumadin2 mg daily Lisinopril 10 mg nightly Atorvastatin 10 mg daily Current Meds: Current Medications Medications Dose Ordered Sig/Eliecer Start Time Stop Time Status Last Admin Budesonide 0.5 mg BIDRESP 12/08/24 18:00 01/07/25 17:59 Potassium Chloride 100 ml @ 100 mls/hr AD PRN 12/08/24 10:00 01/07/25 09:59 Potassium Chloride 20 meq AD PRN 12/08/24 10:00 01/07/25 09:59 Potassium Chloride 20 meq AD PRN 12/08/24 10:00 01/07/25 09:59 Magnesium Sulfate 50 ml @ 0 mls/hr PROTOCOL 12/08/24 10:00 01/07/25 09:59 Acetaminophen 650 mg Q6H PRN 12/08/24 10:00 01/07/25 09:59 Ondansetron HCl 4 mg Q6H PRN 12/08/24 10:00 01/07/25 09:59 Insulin Human Regular INSULIN SLIDING SCAL... ACHS 12/08/24 11:30 01/07/25 11:29 12/08/24 11:36 Furosemide 40 mg BID 12/08/24 21:00 01/07/25 20:59 Famotidine 20 mg BID 12/08/24 21:00 01/07/25 20:59 Lisinopril 10 mg HS 12/08/24 21:00 01/07/25 20:59 Warfarin Sodium 3 mg WARF 12/08/24 17:00 12/15/24 16:59 Insulin Glargine 15 units HS 12/08/24 21:00 01/07/25 20:59 Insulin Human Regular 5 unit TIDAC 12/08/24 17:00 01/07/25 16:59 Review of Systems: CONST: No fever, fatigue, or weight changes. EYES: No recent vision problems. ENT: No congestion, ear pain, or sore throat. C/V: No chest pain, palpitations, or edema. RESP: No cough, congestion, wheezing or shortness of breath. GI: No abdominal pain, nausea, vomiting, constipation, or diarrhea. : No incontinence or dysuria. SKIN: No rash. NEURO: No headache, focal numbness or weakness, dizziness, or seizures. PSYCH: No depression or anxiety. HEME: No abnormal bruising or bleeding. LYMPH: No swollen glands. Physical Examination: GENERAL: No acute distress. HEAD: Normal with no signs of head trauma. EYES: Conjunctiva and sclera normal. ENT: Hearing grossly intact, normal oropharynx. NECK: Supple without JVD. There is no tenderness, lymphadenopathy, or masses. No thyromegaly. Normal carotid upstrokes without bruits. LUNGS: Clear breath sounds bilaterally. No wheezes, or rhonchi. HEART: Normal rate and rhythm. Normal S1 and S2 without murmurs, gallop or rub. ABD: Bowel sounds normal, soft, nontender, no masses, no organomegaly. No audible bruits. : Not examined LYMPH: No lymphadenopathy noted. EXT: RLE with trace edema. SKIN: RLE with dark discoloration. NEURO: Awake, alert, and oriented x3. No focal sensory or strength deficits noted. Vital Signs (last 8hr) Date Time Temp Pulse Resp B/P (MAP) Pulse Ox O2 Delivery O2 Flow Rate FiO2 12/08/24 13:00 98.1 67 20 112/67 98 Room Air* 0 21 12/08/24 09:00 74 20 124/58 99 Room Air* 0 21 12/08/24 07:23 86 20 117/74 100 Room Air* 0 21 12/08/24 06:58 98.2 65 22 140/80 100 Nasal Cannula* 3 32 12/08/24 06:39 108 20 138/76 90 Room Air 0 Laboratory: Hematology Labs: Test 12/08/24 07:00 Range/Units White Blood Count 9.1 4.8-10.8 K/uL Red Blood Count 4.65 4.00-5.50 MIL/uL Hemoglobin 14.4 12.0-16.0 g/dL Hematocrit 43.0 36-48 % Mean Corpuscular Volume 92.5 79-99 fL Mean Corpuscular Hemoglobin 31.0 27.0-33.0 pg Mean Corpuscular Hemoglobin Concent 33.5 32.0-36.0 g/dL Red Cell Distribution Width 13.7 11.0-15.5 % Platelet Count 181 130-400 K/uL Mean Platelet Volume 10.7 H 7.5-10.5 fL Immature Granulocyte % (Auto) 0.3 0-1 % Neutrophils (%) (Auto) 73.4 40.0-77.0 % Lymphocytes (%) (Auto) 18.9 L 21.0-51.0 % Monocytes (%) (Auto) 5.3 3.0-13.0 % Eosinophils (%) (Auto) 1.6 0.0-8.0 % Basophils (%) (Auto) 0.5 0.0-5.0 % Neutrophils # (Auto) 6.7 1.8-7.7 K/uL Lymphocytes # (Auto) 1.7 1.0-4.8 K/uL Monocytes # (Auto) 0.5 0.1-1.0 K/uL Eosinophils # (Auto) 0.15 0.00-0.70 K/uL Basophils # (Auto) 0.05 0.00-0.20 K/uL Absolute Immature Granulocyte (auto 0.03 0-1 K/uL Nucleated Red Blood Cells 0.0 0.0-0.19 % Chemistry Labs: Test 12/08/24 11:26 12/08/24 07:00 Range/Units Whole Blood Glucose 242 H 70-110 MG/DL Sodium Level 138 136-145 mmol/L Potassium Level 3.8 3.5-5.1 mmol/L Chloride Level 103 101-111 mmol/L Carbon Dioxide Level 26 21-32 mmol/L Blood Urea Nitrogen 6 L 7-18 mg/dL Creatinine 0.7 0.5-1.0 mg/dL Glomerular Filtration Rate Calc 95 >90 mL/min Random Glucose 405 *H 70-105 mg/dL Hemoglobin A1c 12.9 H 4.0-6.0 % Estimated Average Glucose (eAG) 324 H 70-126 mg/dL Total Calcium 9.0 8.5-10.1 mg/dL Magnesium Level 1.70 L 1.80-2.40 mg/dL Total Bilirubin 1.6 H 0.2-1.0 mg/dL Direct Bilirubin 0.3 0.0-0.3 mg/dL Aspartate Amino Transf (AST/SGOT) 66 H 10-37 U/L Alanine Aminotransferase (ALT/SGPT) 77 12-78 U/L Alkaline Phosphatase 109 50-136 U/L Lactate Dehydrogenase 273 H 81-234 U/L Troponin I High Sensitivity 48 4-50 ng/L C-Reactive Protein, Quantitative 6.80 H 0.5-3.0 mg/L B-Type Natriuretic Peptide 954 H 0-100 pg/mL Total Protein 7.3 6.0-8.3 g/dL Albumin 3.8 3.5-5.0 g/dL Procalcitonin < 0.05 L 0.05-0.5 ng/mL Thyroid Stimulating Hormone (TSH) 4.33 H 0.36-3.74 uIU/mL Coagulation Labs: Test 12/08/24 07:00 Range/Units Prothrombin Time 16.1 H 9.6-11.6 SEC Prothromb Time International Ratio 1.59 H 0.85-1.15 Activated Partial Thromboplast Time 30.5 26.3-35.5 SEC Diagnostics / Radiology: Impression and Plan: CAD s/p CABG with mechanical AVR On chronic anticoagulation with warfarin, Subtherapeutic INR Acute on chronic combined systolic and diastolic heart failure LVEF of 20-25%, stage II diastolic dysfunction, and possible thrombus in the LV apex via 2D echo on 10/16/2022 Lexiscan stress test on 10/16/2022 with fixed defect in the inferior, anteroseptal, and inferolateral bermudez consistent with scar, LVEF of 37%, with normal TID Hypertension Hyperlipidemia Uncontrolled diabetes mellitus type , A1c 12.9% Morbid obesity Noncompliance Acute on chronic combined systolic and diastolic heart failure LVEF of 20-25%, stage II diastolic dysfunction, and possible thrombus in the LV apex via 2D echo on 10/16/2022 BNP on admission of 954 Chest x-ray demonstrated small bilateral pleural effusions, pending CT of the chest -Resume lisinopril 10 mg q.h.s. and start Toprol XL 25mg qd and monitor response -The patient has been started on Lasix 40 mg IV b.i.d. -Place on continuous telemetry monitoring, assess for arrhythmias -will obtain limited Echo, if EF is still reduced will arrange for Life Vest Mechanical AVR INR goal of 2-3. Subtherapeutic INR of 1.59 -Coumadin has been increased to 3mg daily, will bridge with Heparin gtt until INR is 2. -Daily INR ARTHUR LENNON [employer] CUTTER OPERATOR Dec 08, 2024 14:11
[2024-12-08] MEDS ORDERED: ATOR40TA71 PO (16:39)
[2024-12-08] MEDS ORDERED: LISI10TA24 PO (16:39)
[2024-12-08] MEDS ORDERED: WARF-67 PO (16:39)
[2024-12-08] MEDS: WARFARIN SODIUM 1 MG TAB PO SCH (18:02)
[2024-12-08] MEDS: BUDESONIDE 0.5 MG/2 ML INH IH SCH (19:13)
[2024-12-08] MEDS: LISINOPRIL 10 MG TABLET PO SCH (20:25)
[2024-12-08] MEDS: FAMOTIDINE 20MG TAB PO SCH (20:26)
[2024-12-08 21:58] LABS: ADD UA MICROSCOPIC YES; APPEARANCE,URINE CLEAR (CLEAR); GLUCOSE, URINE (UA) >=1000 mg/dL (NEGATIVE); LEUKOCYTE ESTERASE ,URINE 75 Leu/uL (NEGATIVE); NITRATE,URINE NEGATIVE (NEGATIVE); OCCULT BLOOD,URINE NEGATIVE (NEGATIVE)
[2024-12-08 22:01] LABS: SQUAMOUS EPITHELIAL CELL,UR RARE /HPF (0-2); UNCLASSIFIED CRYSTAL 3 /HPF (None Seen)
[2024-12-08 22:08] LABS: AMPHET/METH SCREEN,URINE NEGATIVE (NEGATIVE); BARBITURATE SCREEN, URINE NEGATIVE (NEGATIVE); CANNABINOID SCREEN,URINE NEGATIVE (NEGATIVE); COCAINE SCREEN,URINE NEGATIVE (NEGATIVE)
[2024-12-08] MEDS: MAGNESIUM 2GM PREMIX 50ML 50 ML IV SCH (22:40)
--- NOTE | 2024-12-08 23:00 | NUR ---
INFORMED AISHA GAFFNEY NP OF PTS COMPLAINS OF MULTIPLE EPISODES OF SEVERE MUSCLE CRAMPS TO THE LEGS AND ARMS. NEW ORDER RECEIVED.
[2024-12-08] MEDS: CYCLOBENZAPRINE HCL 10 MG TABLET PO ONE (23:24)
[2024-12-09] VITALS (10 sets, daily range): BP systolic 87–123; BP diastolic 50–66; PULSE 63–84; RESP 16–20; TEMP 97.4–98.7; O2SAT 97–98
[2024-12-09 04:09] LABS: IMMATURE GRANULOCYTE ABSOLUTE 0.03 K/uL (0-1); NUCLEATED RED BLOOD CELLS 0.0 % (0.0-0.19); PLATELET COUNT (AUTO) 193 K/uL (130-400); RED BLOOD CELL COUNT(AUTO) 4.82 MIL/uL (4.00-5.50); RED CELL DISTRIBUTION WIDTH 13.5 % (11.0-15.5); WHITE BLOOD COUNT (AUTO) 7.6 K/uL (4.8-10.8)
[2024-12-09 04:22] LABS: INR 1.71 (0.85-1.15)
[2024-12-09 04:24] LABS: ASPARTATE AMINOTRANSFERASE 34.0 U/L (10-37); CREATININE 0.8 mg/dL (0.5-1.0); GLOMERULAR FILTR. RATE CALC 81.0 mL/min (>90); GLUCOSE,RANDOM 105.0 mg/dL (70-105); SODIUM SERUM 140.0 mmol/L (136-145); TOTAL PROTEIN, SERUM 7.2 g/dL (6.0-8.3); UREA NITROGEN, BLOOD 13.0 mg/dL (7-18)
[2024-12-09] MEDS: PoTASSium chloRIDE 20MEQ ER 20 MEQ ERTAB PO PRN (04:40)
--- NOTE | 2024-12-09 08:15 | PN ---
[facility] CARDIOLOGY PROGRESS NOTE Date Patient Seen: Dec 09, 2024 Time of Visit: 08:13 Problem List: CHF Subtherapeutic INR Interval History: [ ] Physical Examination: GENERAL: [No acute distress.] HEAD: [Normal with no signs of head trauma.] EYES: [PERRLA, EOMI, conjunctiva and sclera normal.] ENT: [Hearing grossly intact, normal oropharynx.] NECK: [Supple without JVD. There is no tenderness, lymphadenopathy, or masses. No thyromegaly. Normal carotid upstrokes without bruits.] LUNGS: [Clear breath sounds bilaterally. There are right basilar rales one third of the way up the chest. No wheezes, or rhonchi.] HEART: [Normal rate and rhythm. Normal S1 and S2 without mumurs, gallop or rub.] VASC: [Peripheral pulses +2 bilaterally.] ABD: [Bowel sounds normal, soft, nontender, no masses, no organomegaly. No audible bruits.] : [Not examined] LYMPH: [No lymphadenopathy noted.] EXT: [No clubbing, cyanosis or edema.] SKIN: [No rashes or lesions noted.] NEURO: [Awake, alert, and oriented x3. No focal sensory or strength deficits noted.] Laboratory: [ ] Hematology Labs: Test 12/09/24 03:54 Range/Units White Blood Count 7.6 4.8-10.8 K/uL Red Blood Count 4.82 4.00-5.50 MIL/uL Hemoglobin 14.8 12.0-16.0 g/dL Hematocrit 43.9 36-48 % Mean Corpuscular Volume 91.1 79-99 fL Mean Corpuscular Hemoglobin 30.7 27.0-33.0 pg Mean Corpuscular Hemoglobin Concent 33.7 32.0-36.0 g/dL Red Cell Distribution Width 13.5 11.0-15.5 % Platelet Count 193 130-400 K/uL Mean Platelet Volume 10.5 7.5-10.5 fL Immature Granulocyte % (Auto) 0.4 0-1 % Neutrophils (%) (Auto) 59.5 40.0-77.0 % Lymphocytes (%) (Auto) 27.4 21.0-51.0 % Monocytes (%) (Auto) 9.3 3.0-13.0 % Eosinophils (%) (Auto) 2.6 0.0-8.0 % Basophils (%) (Auto) 0.8 0.0-5.0 % Neutrophils # (Auto) 4.5 1.8-7.7 K/uL Lymphocytes # (Auto) 2.1 1.0-4.8 K/uL Monocytes # (Auto) 0.7 0.1-1.0 K/uL Eosinophils # (Auto) 0.20 0.00-0.70 K/uL Basophils # (Auto) 0.06 0.00-0.20 K/uL Absolute Immature Granulocyte (auto 0.03 0-1 K/uL Nucleated Red Blood Cells 0.0 0.0-0.19 % Chemistry Labs: Test 12/09/24 05:14 12/09/24 03:54 12/08/24 19:58 12/08/24 07:00 Range/Units Whole Blood Glucose 102 # 70-110 MG/DL Sodium Level 140 136-145 mmol/L Potassium Level 3.0 *L 3.5-5.1 mmol/L Chloride Level 98 L 101-111 mmol/L Carbon Dioxide Level 30 21-32 mmol/L Blood Urea Nitrogen 13 7-18 mg/dL Creatinine 0.8 0.5-1.0 mg/dL Glomerular Filtration Rate Calc 81 >90 mL/min Random Glucose 105 # 70-105 mg/dL Total Calcium 9.0 8.5-10.1 mg/dL Magnesium Level 2.40 1.80-2.40 mg/dL Total Bilirubin 1.2 #H 0.2-1.0 mg/dL Aspartate Amino Transf (AST/SGOT) 34 10-37 U/L Alanine Aminotransferase (ALT/SGPT) 61 # 12-78 U/L Alkaline Phosphatase 89 50-136 U/L Total Protein 7.2 6.0-8.3 g/dL Albumin 3.5 3.5-5.0 g/dL Bedside Glucose Comment Notified Nurse Hemoglobin A1c 12.9 H 4.0-6.0 % Estimated Average Glucose (eAG) 324 H 70-126 mg/dL Direct Bilirubin 0.3 0.0-0.3 mg/dL Lactate Dehydrogenase 273 H 81-234 U/L Troponin I High Sensitivity 48 4-50 ng/L C-Reactive Protein, Quantitative 6.80 H 0.5-3.0 mg/L B-Type Natriuretic Peptide 954 H 0-100 pg/mL Procalcitonin < 0.05 L 0.05-0.5 ng/mL Thyroid Stimulating Hormone (TSH) 4.33 H 0.36-3.74 uIU/mL Coagulation Labs: Test 12/09/24 03:54 12/08/24 07:00 Range/Units Prothrombin Time 17.2 H 9.6-11.6 SEC Prothromb Time International Ratio 1.71 H 0.85-1.15 Activated Partial Thromboplast Time 30.5 26.3-35.5 SEC Diagnostics / Radiology: [Copy/Paste Echos/Imaging Report here] Impression and Plan: CAD s/p CABG with mechanical AVR Chronic anticoagulation with warfarin, Subtherapeutic INR Acute on chronic combined systolic and diastolic heart failure LVEF of 20-25%, stage II diastolic dysfunction, and possible thrombus in the LV apex via 2D echo on 10/16/2022 Hypokalemia Lexiscan stress test on 10/16/2022 with fixed defect in the inferior, anteroseptal, and inferolateral bermudez consistent with scar, LVEF of 37%, with normal TID Hypertension Hyperlipidemia Uncontrolled diabetes mellitus type , A1c 12.9% Morbid obesity Noncompliance Bridging with heparin while on warfarin, discontinue heparin gtt when IN >/= 2.0. Goal INR is 2.0-3.0 Repletion of potassium to goal >/= 4.0, magnesium >/= 2.0 Continue with the IV diuresis Attempt to obtain records regarding her CABG+AVR Review CT Chest when available ASYA WILLS DO Dec 09, 2024 08:15
--- NOTE | 2024-12-09 08:57 | HMCIMG ---
EXAM: CT Chest Without IV contrast. CLINICAL HISTORY: assess for pulm edema, hx of heart failure, hx of 12 mm pulm nodule TECHNIQUE: Axial computed tomography images of the chest without intravenous contrast. COMPARISON: Compared with the previous CT dated 10/13/22 and the radiograph dated 12/08 FINDINGS: LUNGS: No pulmonary infiltrates. Smooth interlobular septal thickening in both lungs, likely cardiogenic pulmonary edema. Multiple stable calcified granulomas in both lungs largest measuring 11 x 9 mm in the right upper lobe. PLEURAL SPACES: No pneumothorax evident. New Onset of bilateral mild pleural effusion. HEART: Cardiomegaly with cardiothoracic index of 0.63. No significant pericardial effusion. Scarring of the left ventricle, suggestive of prior myocardial function. LYMPH NODES: No lymphadenopathy is evident. UPPER ABDOMEN: A few stable gallstones measuring up to 9 mm. No features of cholecystitis. Stable small hiatal hernia. The rest of the upper abdominal solid organs are unremarkable. BONES: No acute osseous abnormality. Mild multilevel degenerative changes in the visualized spine. IMPRESSION: 1. Cardiogenic pulmonary edema with new bilateral mild pleural effusions. No pulmonary infiltrates. 2. Cardiomegaly with cardiothoracic index of 0.63. Scarring of the left ventricle, suggestive of prior myocardial function. 3. Stable calcified pulmonary granulomas, largest 11 x 9 mm in right upper lobe. /[place]lings
[2024-12-09 09:20] LABS: INR 1.76 (0.85-1.15)
--- NOTE | 2024-12-09 10:10 | PN ---
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 last night. Patient states that she woke up feeling short of breath with dizziness and she felt like she may have dose sugar. Patient does not have a home glucometer but she states that due to her symptoms, she put some sugar in a glass of water and drank it to see if it relieves her symptoms. She continues to have symptoms of shortness of breath and generalized uneasiness and she drank some coffee to see if symptoms improve. Patient's symptoms do not improve prompting her to come to the ER for further evaluation. Patient denies any previous history of stroke or seizures. She has not been able to follow up with Cardiology as outpatient june and she has significant cardiac history including history of severe ischemic cardiomyopathy with LVEF of 20-25% from 2D echocardiogram from 2022, she has a history of mecha nical aortic valve and coronary artery bypass grafting in 2004. She reports taking Coumadin 2 mg daily. She will is followed by PCP with regards to management of Coumadin. She denies any fevers, chills, or productive cough. She denies noticing significant swelling of the lower extremity or weight gain. She denies any pleurisy. On presentation to the hospital, patient was noted to be afebrile with T-max of 98.2 F, heart rate of 108, blood pressure of 138/76. Patient was saturating 90% on room air. Labs on presentation showed WBC count of 9100, hemoglobin of 14.4, platelet count of 429300. BMP showed sodium of 138, potassium 3.8, chloride of 103, CO2 of 26, BUN of six, creatinine of 0.7, blood glucose of 405, BNP close to 1000, cardiac troponin showed high sensitivity troponin of 48. Chest x-ray showed cardiomegaly with bilateral hilar congestion and ill-defined infiltrates of the bilateral lobes with minimal pleural effusion. Patient was also noted to have 12 mm nodular density in the right upper lobe. Patient will be admitted for further treatment and management of acute on chronic systolic and diastolic heart failure exacerbation in the setting of known history of advanced cardiomyopathy. Blood sugars are uncontrolled, patient will be sliding on basal Lantus for further management. We will see how patient progresses in the next 2-3 days and we will obtain further cardiac workup and consultation with Cardiology will be requested this admission. 12/09 patient's shortness of breath has improved. Undergoing bridging to warfarin with heparin also undergoing IV diuresis REVIEW OF SYSTEMS CONSTITUTIONAL: Denies fevers, chills, or night sweats. No unintentional weight loss reported. NEUROLOGICAL: Denies headache, amaurosis fugax, motor weakness, sensory deficit, vertigo/spinning sensation, gait abnormalities, or tremors. ENT: No hearing loss, otalgia, otorrhea, rhinitis, rhinorrhea, hoarseness, or sore throat. CARDIOVASCULAR: Shortness of breath close to 4:00 a.m. today with generalized fatigue PULMONARY: Denies any shortness of breath, cough, phlegm/sputum, hemoptysis, pleuritic chest pain. SLEEP: Denies morning headaches, daytime somnolence or napping. Denies difficulty falling asleep, staying asleep, waking from sleep. Denies knowledge of snoring. GASTROINTESTINAL: Denies any type of dysphagia to either liquids or solids. Denies nausea, vomiting, pyrosis, early satiety, abdominal pain, diarrhea, constipation, or changes in stool consistency or caliber. Denies coffee-ground emesis, hematemesis, hematochezia, or melanotic stools. GENITOURINARY: Denies frequency, urgency, nocturia, hematuria or incontinence (Storage/Irritative symptoms.) Low urinary stream, straining to void, urinary intermittency or hesitancy, splitting of the voiding stream, terminal dribbling. ENDOCRINOLOGIC: Denies polyuria, polydipsia, polyphagia or heat/cold intolerances. HEMATOLOGIC: Denies thrombophilia/previous clots, or coagulopathy/bleeding disorders. ONCOLOGIC: Denies personal history of malignancy. DERMATOLOGIC: Denies rashes or pruritus. PSYCHIATRIC: Denies any suicidal or homicidal ideation. Denies hallucinations. PHYSICAL EXAM GENERAL APPEARANCE: The patient is awake, alert, and oriented, in no acute cardiopulmonary distress. Patient is sitting up in the bed, she is obese NEUROLOGICAL: Cranial nerves II-XII grossly intact. Motor is 5/5 in bilateral upper and lower extremities proximal to distal. No sensory deficits. HEENT: Face is symmetric. Pupils are equal and reactive. Extraocular movements are intact. NECK: Supple. No JVD. No thyromegaly. No submental, submandibular, pre- /postauricular, occipital or supraclavicular lymphadenopathy. CHEST: Normal chest expansion. No Telemetry. LUNGS: Crackles noted of bilateral lung bases CARDIOVASCULAR: Regular. Mechanical click auscultated. No appreciable rubs, murmurs or gallops. ABDOMEN: Soft, nontender, and nondistended. There is no rebound, voluntary guarding, or rigidity. : Deferred. No Salguero. EXTREMITIES: Trace edema of the lower extremities. No clubbing. Good capillary refill. SKIN: No skin breakdown. Vital Signs (last 8hr) Date Time Temp Pulse Resp B/P (MAP) Pulse Ox O2 Delivery O2 Flow Rate FiO2 12/09/24 07:44 97.9 63 20 101/50 97 Room Air 12/09/24 07:42 67 18 12/09/24 07:42 67 18 N/A Room Air 21 12/09/24 03:21 97.3 63 16 98/65 96 Room Air LABS: Laboratory: Test 12/09/24 09:05 12/09/24 05:14 12/09/24 03:54 12/08/24 21:45 Range/Units Prothrombin Time 17.6 H 9.6-11.6 SEC Prothromb Time International Ratio 1.76 H 0.85-1.15 Activated Partial Thromboplast Time 33.0 26.3-35.5 SEC Whole Blood Glucose 102 # 70-110 MG/DL White Blood Count 7.6 4.8-10.8 K/uL Red Blood Count 4.82 4.00-5.50 MIL/uL Hemoglobin 14.8 12.0-16.0 g/dL Hematocrit 43.9 36-48 % Mean Corpuscular Volume 91.1 79-99 fL Mean Corpuscular Hemoglobin 30.7 27.0-33.0 pg Mean Corpuscular Hemoglobin Concent 33.7 32.0-36.0 g/dL Red Cell Distribution Width 13.5 11.0-15.5 % Platelet Count 193 130-400 K/uL Mean Platelet Volume 10.5 7.5-10.5 fL Immature Granulocyte % (Auto) 0.4 0-1 % Neutrophils (%) (Auto) 59.5 40.0-77.0 % Lymphocytes (%) (Auto) 27.4 21.0-51.0 % Monocytes (%) (Auto) 9.3 3.0-13.0 % Eosinophils (%) (Auto) 2.6 0.0-8.0 % Basophils (%) (Auto) 0.8 0.0-5.0 % Neutrophils # (Auto) 4.5 1.8-7.7 K/uL Lymphocytes # (Auto) 2.1 1.0-4.8 K/uL Monocytes # (Auto) 0.7 0.1-1.0 K/uL Eosinophils # (Auto) 0.20 0.00-0.70 K/uL Basophils # (Auto) 0.06 0.00-0.20 K/uL Absolute Immature Granulocyte (auto 0.03 0-1 K/uL Nucleated Red Blood Cells 0.0 0.0-0.19 % Sodium Level 140 136-145 mmol/L Potassium Level 3.0 *L 3.5-5.1 mmol/L Chloride Level 98 L 101-111 mmol/L Carbon Dioxide Level 30 21-32 mmol/L Blood Urea Nitrogen 13 7-18 mg/dL Creatinine 0.8 0.5-1.0 mg/dL Glomerular Filtration Rate Calc 81 >90 mL/min Random Glucose 105 # 70-105 mg/dL Total Calcium 9.0 8.5-10.1 mg/dL Magnesium Level 2.40 1.80-2.40 mg/dL Total Bilirubin 1.2 #H 0.2-1.0 mg/dL Aspartate Amino Transf (AST/SGOT) 34 10-37 U/L Alanine Aminotransferase (ALT/SGPT) 61 # 12-78 U/L Alkaline Phosphatase 89 50-136 U/L Total Protein 7.2 6.0-8.3 g/dL Albumin 3.5 3.5-5.0 g/dL Urine Color COLORLESS YELLOW Urine Appearance CLEAR CLEAR Urine pH 5.5 5.0-8.0 Urine Specific [place] 1.006 1.001-1.031 Urine Protein NEGATIVE NEGATIVE mg/dL Urine Glucose (UA) >=1000 H NEGATIVE mg/dL Urine Ketones NEGATIVE NEGATIVE mg/dL Urine Occult Blood NEGATIVE NEGATIVE Urine Nitrate NEGATIVE NEGATIVE Urine Bilirubin NEGATIVE NEGATIVE mg/dL Urine Urobilinogen 0.2 0.2-1.0 mg/dL Urine Leukocyte Esterase 75 H NEGATIVE Willis/uL Urine RBC 2-5 H 0-1 /HPF Urine WBC 26-50 H 0-1 /HPF Urine Squamous Epithelial Cells RARE 0-2 /HPF Urine Other Crystals (Auto) 3 None Seen /HPF Urine Bacteria FEW None Seen /HPF Urine Opiates Screen NEGATIVE NEGATIVE Urine Barbiturates Screen NEGATIVE NEGATIVE Urine Phencyclidine Screen NEGATIVE NEGATIVE Urine Amphetamines Screen NEGATIVE NEGATIVE Urine Benzodiazepines Screen NEGATIVE NEGATIVE Urine Cocaine Screen NEGATIVE NEGATIVE Urine Marijuana (THC) Screen NEGATIVE NEGATIVE Test 12/08/24 19:58 12/08/24 11:34 12/08/24 07:00 Range/Units Bedside Glucose Comment Notified Nurse Influenza Type A Antigen Negative For Type A NEGATIVE Influenza Type B Antigen Negative For Type B NEGATIVE SARS-CoV-2, RNA, NAAT NEGATIVE SARS CoV-2 NEGATIVE Hemoglobin A1c 12.9 H 4.0-6.0 % Estimated Average Glucose (eAG) 324 H 70-126 mg/dL Direct Bilirubin 0.3 0.0-0.3 mg/dL Lactate Dehydrogenase 273 H 81-234 U/L Troponin I High Sensitivity 48 4-50 ng/L C-Reactive Protein, Quantitative 6.80 H 0.5-3.0 mg/L B-Type Natriuretic Peptide 954 H 0-100 pg/mL Procalcitonin < 0.05 L 0.05-0.5 ng/mL Thyroid Stimulating Hormone (TSH) 4.33 H 0.36-3.74 uIU/mL Current Medications Medications (Trade) Dose Ordered Sig/Eliecer Route PRN Reason Start Time Stop Time Status Last Admin Dose Admin Acetaminophen (TYLenol 325MG TAB) 650 mg Q6H PRN PO MILD PAIN (1-3) 12/08/24 10:00 01/07/25 09:59 12/08/24 20:35 650 MG Budesonide (Pulmicort 0.5 Mg/2ml) 0.5 mg BIDRESP IH 12/08/24 18:00 01/07/25 17:59 12/09/24 07:42 0.5 MG Famotidine (Pepcid 20mg Tab) 20 mg BID PO 12/08/24 21:00 01/07/25 20:59 12/08/24 20:26 20 MG Furosemide (LASix 40MG VIAL) 40 mg BID IV 12/08/24 21:00 01/07/25 20:59 12/08/24 20:26 40 MG Heparin Sodium/ Dextrose 250 ml @ 0 mls/hr PROTOCOL IV 12/08/24 15:00 01/07/25 14:59 Insulin Glargine (LANtus 100 UNITS/ML 10 ML VIAL) 15 units HS SQ 12/08/24 21:00 12/08/24 22:03 DC 12/08/24 20:29 15 UNITS Insulin Glargine (LANtus 100 UNITS/ML 10 ML VIAL) 30 units DAILY SQ 12/09/24 09:00 01/07/25 20:59 Insulin Human Regular (humuLIN R 100 UNIT/ML 3ML) 5 unit TIDAC SQ 12/08/24 17:00 12/08/24 22:03 DC 12/08/24 18:07 5 UNIT Insulin Human Regular (humuLIN R 100 UNIT/ML 3ML) 12 unit TIDAC SQ 12/09/24 07:30 01/08/25 07:29 Insulin Human Regular (humuLIN R 100 UNIT/ML 3ML) INSULIN SLIDING SCAL... ACHS SQ 12/08/24 11:30 01/07/25 11:29 12/08/24 20:30 14 UNIT Lisinopril (Prinivil 10mg) 10 mg HS PO 12/08/24 21:00 01/07/25 20:59 Magnesium Sulfate 50 ml @ 0 mls/hr PROTOCOL IV 12/08/24 10:00 01/07/25 09:59 12/08/24 22:40 25 MLS/HR Metoprolol Succinate (TopROL XL) 25 mg DAILY PO 12/09/24 09:00 01/08/25 08:59 Ondansetron HCl (zoFRAN 4MG INJ) 4 mg Q6H PRN IVP NAUSEA/VOMITING 12/08/24 10:00 01/07/25 09:59 Potassium Chloride 100 ml @ 100 mls/hr AD PRN IV POTASSIUM PROTOCOL 12/08/24 10:00 01/07/25 09:59 Potassium Chloride (K-Dur/Klor-Con 20meq) 20 meq AD PRN PO POTASSIUM PROTOCOL 12/08/24 10:00 01/07/25 09:59 12/09/24 06:21 20 MEQ Potassium Chloride (KCl 10% Elixir 20meq/15ml) 20 meq AD PRN PO POTASSIUM PROTOCOL 12/08/24 10:00 01/07/25 09:59 Warfarin Sodium (Coumadin) 3 mg WARF PO 12/08/24 17:00 12/15/24 16:59 12/08/24 18:02 3 MG DIAGNOSTICS / RADIOLOGY: [ ] ASSESSMENT: Acute on chronic systolic and diastolic heart failure exacerbation with LVEF of 20-25 % from 2D echo in 2022, POA Cardiogenic edema with hypoxemic respiratory failure, POA Uncontrolled hyperglycemia, POA For outpatient cardiac follow up POA Coronary artery disease with remote coronary artery bypass grafting in 2004, POA Previous mechanical aortic valve placement in 2004, POA History of possible thrombus involving the left ventricular apex from 2D echocardiogram from , POA chronic anticoagulation with warfarin for mechanical valve, POA Hypertension, POA right upper lobe pulmonary nodule measuring 12 mm, POA Poorly controlled type 2 diabetes mellitus, POA Obesity, POA PLAN: Off antibiotics for signs of infection Trend WBCs O2 nasal cannula as needed Continue lisinopril, metoprolol Monitor blood pressure Follow up with Cardiology -obtain medical records -continue bridging to warfarin -continue IV diuresis Diabetic diet GI prophylaxis with famotidine Continue Lasix IV, monitor creatinine for worsening renal function No need for IV fluids Trend a.m. BMP Replete electrolytes as necessary DVT prophylaxis with heparin Trend a.m. CBC Full code Case was discussed with patient's nurse at bedside Attention time greater than 30 minutes NILE GROSS IV, MD Dec 09, 2024 10:09
--- NOTE | 2024-12-09 11:21 | HMCIMG ---
CHEST 1VW REASON: assess pulm edema COMPARISON: Prior chest radiograph from 12/08/2024 is available. FINDINGS: Single view of the chest was obtained. There is global cardiomegaly with median sternotomy. There is calcified fibroadenoma seen in the right upper and right lower lung.. There is no pulmonary vascular congestion. Mediastinum and bony thorax appear unremarkable. IMPRESSION: 1. Cardiomegaly with median sternotomy 2. No evidence of airspace consolidation or pulmonary venous congestion.
[2024-12-09] MEDS: PoTASSium chl 10% ELIXIR 20MEQ 20 MEQ/15 ML UDCUP PO PRN (13:32)
--- NOTE | 2024-12-09 16:00 | NUR ---
PT WAS ADVISED THAT SHE WOULD BE GETTING WARFARIN ALSO EVEN IT SHE WAS GETTING HEPARIN AND SHE STATED THAT SHE WAS NOT GOING TO TAKE WARFARIN BECAUSE THAT WAS ENOUGH BLOOD THINNERS. PT WAS ADVISED THAT SHE WAS STARTED ON A HEPARIN DRIP SO THAT HER CLOTTING STUDIES WERE CORRECTED BEFORE SHE WAS DISCHARGED, AGAIN PT SAID NO AND WOULD THINK ABOUT IT.
[2024-12-10] VITALS (10 sets, daily range): BP systolic 91–108; BP diastolic 53–60; PULSE 59–74; RESP 16–20; TEMP 97.5–98.7; O2SAT 96–97
--- NOTE | 2024-12-10 00:35 | HMCSR ---
APPROVED REPORT EXAM: Two-dimensional and M-mode echocardiogram with Doppler and color Doppler. INDICATION ICD: hx of heart failure, possible hx of apical thrombus of the heart 2D Dimensions RVDd3.8 cmLVEF(%)26.1 (>50%)LVED Vol(simp.)178.4 mL IVSd0.6 (0.7-1.1cm)FS(%)12 %LVES Vol(simp.)140.7 mL LVDd6.2 (3.8-5.6cm)LA (2D)2.8 (1.6-4.0cm)LVEF(%, simp.)21 % PWd0.8 (0.7-1.1cm)Ao Root(2D)3.1 (2.0-3.7cm)LA ESV INDEX (BP)48.09 mL/m2 LVDs5.4 (2.5-4.0cm)LVOT diam1.7 (1.8-2.4cm) IVC diam1.6 cm Deformation Strain Apical 4-5.9 % Apical 2-5.8 % Apical 3-5.0 % Global Strain-5.6 % Aortic Valve AoV Vmax4.1 m/Jennifer Peak GR68.1 mmHgLVOT Vmax1.1 m/s AoV VTI0.9 mAo Mean GR39.4 mmHgLVOT VTI0.26 m ILDA (VMAX)0.62 cm2Al P1/2T444 msAVA (VTI) 0.7 cm2 Mitral Valve MV E Bpsd691.2 cm/sDECEL Efpf732 ms MV A Vmax44.8 cm/sP 1/2 T38 ms E/A ratio2.3MVA (PHT)5.8 cm2 TDI E/E' [place]20.5 Medial E' Peak V4.00 cm/s Pulmonary Valve PV Vmax1.0 m/sPV VTI0.18 mPV Mean GR2.4 mmHg PV Peak GR4.2 mmHg Tricuspid Valve TR Vmax4.1 m/sRAP (EST) 3 jnAkUCBT95.9 mmHg TR Peak GR67.9 mmHg Left Ventricle The left ventricle is dilated, LVIDd 6.2cm. There is paradoxical septal wall motion noted. The basal/ mid/apical inferior wall is thin, scarred, and akinetic. The basal anterior, anterior lateral, and in ferolateral wall segments are normal in function. The mid/apical anterior, anterolateral, and inferol ateral bermudez are hypokinetic. There is global thinning of the left ventricle. Left ventricle systolic function is severely depressed, estimated LVEF 15 to 20%. Stage III diastolic dysfunction. Right Ventricle The right ventricle is dilated. The right ventricular systolic function is normal, TAPSE 17 mm. Atria The left atrium is severely dilated, 48 mL/m. The right atrium is dilated. Aortic Valve The aortic valve has been replaced by a well-seated bioprosthetic valve. No significant perivalvular leak was noted. 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 Mitral Valve The mitral valve is normal in structure. The leaflets are thickened and calcified. Moderate to severe mitral regurgitation. There is no mitral valve stenosis. Tricuspid Valve The tricuspid valve is normal in structure. Severe tricuspid regurgitation. RVSP is 68 mmHg. Pulmonic Valve Pulmonic valve is not well visualized. Great Vessels The aortic root is normal in size. IVC is normal in size and collapses >50% with inspiration. Pericardium No pericardial effusion. Conclusion The left atrium is severely dilated, 48 mL/m. The right atrium is dilated. The left ventricle is dilated, LVIDd 6.2cm. The right ventricle is dilated. There is global thinning of the left ventricle. There is paradoxical septal wall motion noted. The basal/mid/apical inferior wall is thin, scarred, and akinetic. The basal anterior, anterior lateral, and inferolateral wall segments are normal in fu nction. The mid/apical anterior, anterolateral, and inferolateral bermudez are hypokinetic. Left ventri evelyn systolic function is severely depressed, estimated LVEF 15 to 20%. Stage III diastolic dysfunction. The aortic valve has been replaced by a well-seated bioprosthetic valve. No significant perivalvular leak was noted. 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 Moderate to severe mitral regurgitation. Severe tricuspid regurgitation. PASP is 71 mmHg. No pericardial effusion.
[2024-12-10 03:48] LABS: NUCLEATED RED BLOOD CELLS 0.0 % (0.0-0.19); PLATELET COUNT (AUTO) 199.0 K/uL (130-400); RED BLOOD CELL COUNT(AUTO) 4.57 MIL/uL (4.00-5.50); RED CELL DISTRIBUTION WIDTH 13.8 % (11.0-15.5); WHITE BLOOD COUNT (AUTO) 9.2 K/uL (4.8-10.8)
[2024-12-10 04:04] LABS: CREATININE 1.0 mg/dL (0.5-1.0); GLOMERULAR FILTR. RATE CALC 62.0 mL/min (>90); GLUCOSE,RANDOM 82.0 mg/dL (70-105); SODIUM SERUM 139.0 mmol/L (136-145); UREA NITROGEN, BLOOD 21.0 mg/dL (7-18)
[2024-12-10 04:23] LABS: INR 1.5 (0.85-1.15)
--- NOTE | 2024-12-10 09:49 | PN ---
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 last night. Patient states that she woke up feeling short of breath with dizziness and she felt like she may have dose sugar. Patient does not have a home glucometer but she states that due to her symptoms, she put some sugar in a glass of water and drank it to see if it relieves her symptoms. She continues to have symptoms of shortness of breath and generalized uneasiness and she drank some coffee to see if symptoms improve. Patient's symptoms do not improve prompting her to come to the ER for further evaluation. Patient denies any previous history of stroke or seizures. She has not been able to follow up with Cardiology as outpatient june and she has significant cardiac history including history of severe ischemic cardiomyopathy with LVEF of 20-25% from 2D echocardiogram from 2022, she has a history of mecha nical aortic valve and coronary artery bypass grafting in 2004. She reports taking Coumadin 2 mg daily. She will is followed by PCP with regards to management of Coumadin. She denies any fevers, chills, or productive cough. She denies noticing significant swelling of the lower extremity or weight gain. She denies any pleurisy. On presentation to the hospital, patient was noted to be afebrile with T-max of 98.2 F, heart rate of 108, blood pressure of 138/76. Patient was saturating 90% on room air. Labs on presentation showed WBC count of 9100, hemoglobin of 14.4, platelet count of 170253. BMP showed sodium of 138, potassium 3.8, chloride of 103, CO2 of 26, BUN of six, creatinine of 0.7, blood glucose of 405, BNP close to 1000, cardiac troponin showed high sensitivity troponin of 48. Chest x-ray showed cardiomegaly with bilateral hilar congestion and ill-defined infiltrates of the bilateral lobes with minimal pleural effusion. Patient was also noted to have 12 mm nodular density in the right upper lobe. Patient will be admitted for further treatment and management of acute on chronic systolic and diastolic heart failure exacerbation in the setting of known history of advanced cardiomyopathy. Blood sugars are uncontrolled, patient will be sliding on basal Lantus for further management. We will see how patient progresses in the next 2-3 days and we will obtain further cardiac workup and consultation with Cardiology will be requested this admission. 12/09 patient's shortness of breath has improved. Undergoing bridging to warfarin with heparin also undergoing IV diuresis 12/10 IV diuresis. Patient is refusing warfarin as she feels she is getting enough blood thinners. We will educate regarding the need for warfarin bridging with heparin REVIEW OF SYSTEMS CONSTITUTIONAL: Denies fevers, chills, or night sweats. No unintentional weight loss reported. NEUROLOGICAL: Denies headache, amaurosis fugax, motor weakness, sensory deficit, vertigo/spinning sensation, gait abnormalities, or tremors. ENT: No hearing loss, otalgia, otorrhea, rhinitis, rhinorrhea, hoarseness, or sore throat. CARDIOVASCULAR: Shortness of breath close to 4:00 a.m. today with generalized fatigue PULMONARY: Denies any shortness of breath, cough, phlegm/sputum, hemoptysis, pleuritic chest pain. SLEEP: Denies morning headaches, daytime somnolence or napping. Denies difficulty falling asleep, staying asleep, waking from sleep. Denies knowledge of snoring. GASTROINTESTINAL: Denies any type of dysphagia to either liquids or solids. Denies nausea, vomiting, pyrosis, early satiety, abdominal pain, diarrhea, constipation, or changes in stool consistency or caliber. Denies coffee-ground emesis, hematemesis, hematochezia, or melanotic stools. GENITOURINARY: Denies frequency, urgency, nocturia, hematuria or incontinence (Storage/Irritative symptoms.) Low urinary stream, straining to void, urinary intermittency or hesitancy, splitting of the voiding stream, terminal dribbling. ENDOCRINOLOGIC: Denies polyuria, polydipsia, polyphagia or heat/cold intolerances. HEMATOLOGIC: Denies thrombophilia/previous clots, or coagulopathy/bleeding disorders. ONCOLOGIC: Denies personal history of malignancy. DERMATOLOGIC: Denies rashes or pruritus. PSYCHIATRIC: Denies any suicidal or homicidal ideation. Denies hallucinations. PHYSICAL EXAM GENERAL APPEARANCE: The patient is awake, alert, and oriented, in no acute cardiopulmonary distress. Patient is sitting up in the bed, she is obese NEUROLOGICAL: Cranial nerves II-XII grossly intact. Motor is 5/5 in bilateral upper and lower extremities proximal to distal. No sensory deficits. HEENT: Face is symmetric. Pupils are equal and reactive. Extraocular movements are intact. NECK: Supple. No JVD. No thyromegaly. No submental, submandibular, pre- /postauricular, occipital or supraclavicular lymphadenopathy. CHEST: Normal chest expansion. No Telemetry. LUNGS: Crackles noted of bilateral lung bases CARDIOVASCULAR: Regular. Mechanical click auscultated. No appreciable rubs, murmurs or gallops. ABDOMEN: Soft, nontender, and nondistended. There is no rebound, voluntary guarding, or rigidity. : Deferred. No Salguero. EXTREMITIES: Trace edema of the lower extremities. No clubbing. Good capillary refill. SKIN: No skin breakdown. Vital Signs (last 8hr) Date Time Temp Pulse Resp B/P (MAP) Pulse Ox O2 Delivery O2 Flow Rate FiO2 12/10/24 07:38 97.5 61 16 107/53 96 Room Air 12/10/24 07:12 70 20 N/A Room Air 21 12/10/24 07:09 70 18 12/10/24 04:29 98.8 59 18 108/60 97 Room Air LABS: Laboratory: Test 12/10/24 07:29 12/10/24 07:22 12/10/24 03:25 12/09/24 03:54 Range/Units Whole Blood Glucose 110 70-110 MG/DL Activated Partial Thromboplast Time > 139.0 *H 26.3-35.5 SEC White Blood Count 9.2 4.8-10.8 K/uL Red Blood Count 4.57 4.00-5.50 MIL/uL Hemoglobin 14.1 12.0-16.0 g/dL Hematocrit 41.7 36-48 % Mean Corpuscular Volume 91.2 79-99 fL Mean Corpuscular Hemoglobin 30.9 27.0-33.0 pg Mean Corpuscular Hemoglobin Concent 33.8 32.0-36.0 g/dL Red Cell Distribution Width 13.8 11.0-15.5 % Platelet Count 199 130-400 K/uL Mean Platelet Volume 11.3 H 7.5-10.5 fL Nucleated Red Blood Cells 0.0 0.0-0.19 % Prothrombin Time 15.3 H 9.6-11.6 SEC Prothromb Time International Ratio 1.50 H 0.85-1.15 Sodium Level 139 136-145 mmol/L Potassium Level 4.0 3.5-5.1 mmol/L Chloride Level 100 L 101-111 mmol/L Carbon Dioxide Level 29 21-32 mmol/L Blood Urea Nitrogen 21 H 7-18 mg/dL Creatinine 1.0 0.5-1.0 mg/dL Glomerular Filtration Rate Calc 62 >90 mL/min Random Glucose 82 70-105 mg/dL Total Calcium 9.1 8.5-10.1 mg/dL Immature Granulocyte % (Auto) 0.4 0-1 % Neutrophils (%) (Auto) 59.5 40.0-77.0 % Lymphocytes (%) (Auto) 27.4 21.0-51.0 % Monocytes (%) (Auto) 9.3 3.0-13.0 % Eosinophils (%) (Auto) 2.6 0.0-8.0 % Basophils (%) (Auto) 0.8 0.0-5.0 % Neutrophils # (Auto) 4.5 1.8-7.7 K/uL Lymphocytes # (Auto) 2.1 1.0-4.8 K/uL Monocytes # (Auto) 0.7 0.1-1.0 K/uL Eosinophils # (Auto) 0.20 0.00-0.70 K/uL Basophils # (Auto) 0.06 0.00-0.20 K/uL Absolute Immature Granulocyte (auto 0.03 0-1 K/uL Magnesium Level 2.40 1.80-2.40 mg/dL Total Bilirubin 1.2 #H 0.2-1.0 mg/dL Aspartate Amino Transf (AST/SGOT) 34 10-37 U/L Alanine Aminotransferase (ALT/SGPT) 61 # 12-78 U/L Alkaline Phosphatase 89 50-136 U/L Total Protein 7.2 6.0-8.3 g/dL Albumin 3.5 3.5-5.0 g/dL Test 12/08/24 21:45 12/08/24 19:58 12/08/24 11:34 Range/Units Urine Color COLORLESS YELLOW Urine Appearance CLEAR CLEAR Urine pH 5.5 5.0-8.0 Urine Specific Goodwin 1.006 1.001-1.031 Urine Protein NEGATIVE NEGATIVE mg/dL Urine Glucose (UA) >=1000 H NEGATIVE mg/dL Urine Ketones NEGATIVE NEGATIVE mg/dL Urine Occult Blood NEGATIVE NEGATIVE Urine Nitrate NEGATIVE NEGATIVE Urine Bilirubin NEGATIVE NEGATIVE mg/dL Urine Urobilinogen 0.2 0.2-1.0 mg/dL Urine Leukocyte Esterase 75 H NEGATIVE Willis/uL Urine RBC 2-5 H 0-1 /HPF Urine WBC 26-50 H 0-1 /HPF Urine Squamous Epithelial Cells RARE 0-2 /HPF Urine Other Crystals (Auto) 3 None Seen /HPF Urine Bacteria FEW None Seen /HPF Urine Opiates Screen NEGATIVE NEGATIVE Urine Barbiturates Screen NEGATIVE NEGATIVE Urine Phencyclidine Screen NEGATIVE NEGATIVE Urine Amphetamines Screen NEGATIVE NEGATIVE Urine Benzodiazepines Screen NEGATIVE NEGATIVE Urine Cocaine Screen NEGATIVE NEGATIVE Urine Marijuana (THC) Screen NEGATIVE NEGATIVE Bedside Glucose Comment Notified Nurse Influenza Type A Antigen Negative For Type A NEGATIVE Influenza Type B Antigen Negative For Type B NEGATIVE SARS-CoV-2, RNA, NAAT NEGATIVE SARS CoV-2 NEGATIVE Current Medications Medications (Trade) Dose Ordered Sig/Eliecer Route PRN Reason Start Time Stop Time Status Last Admin Dose Admin Acetaminophen (TYLenol 325MG TAB) 650 mg Q6H PRN PO MILD PAIN (1-3) 12/08/24 10:00 01/07/25 09:59 12/09/24 21:40 650 MG Budesonide (Pulmicort 0.5 Mg/2ml) 0.5 mg BIDRESP IH 12/08/24 18:00 01/07/25 17:59 12/10/24 07:08 0.5 MG Ceftriaxone Sodium (ROCEphine 1G INJ) 1 gm Q24H IVPB 12/09/24 12:30 12/19/24 12:29 12/09/24 13:23 1 GM Famotidine (Pepcid 20mg Tab) 20 mg BID PO 12/08/24 21:00 01/07/25 20:59 12/10/24 08:27 20 MG Furosemide (LASix 40MG VIAL) 40 mg BID IV 12/08/24 21:00 11/8/25 20:59 12/10/24 08:27 40 MG Heparin Sodium/ Dextrose 250 ml @ 0 mls/hr PROTOCOL IV 12/08/24 15:00 01/07/25 14:59 Insulin Glargine (LANtus 100 UNITS/ML 10 ML VIAL) 15 units HS SQ 12/08/24 21:00 12/08/24 22:03 DC 12/08/24 20:29 15 UNITS Insulin Glargine (LANtus 100 UNITS/ML 10 ML VIAL) 25 units DAILY SQ 12/10/24 09:00 01/09/25 08:59 12/10/24 08:25 25 UNITS Insulin Glargine (LANtus 100 UNITS/ML 10 ML VIAL) 30 units DAILY SQ 12/09/24 09:00 12/10/24 07:22 DC 12/09/24 09:00 30 UNITS Insulin Human Regular (humuLIN R 100 UNIT/ML 3ML) 5 unit TIDAC SQ 12/08/24 17:00 12/08/24 22:03 DC 12/08/24 18:07 5 UNIT Insulin Human Regular (humuLIN R 100 UNIT/ML 3ML) 6 unit TIDAC SQ 12/10/24 07:30 01/09/25 07:29 12/10/24 08:26 6 UNIT Insulin Human Regular (humuLIN R 100 UNIT/ML 3ML) 12 unit TIDAC SQ 12/09/24 07:30 12/10/24 07:22 DC 12/09/24 11:30 12 UNIT Insulin Human Regular (humuLIN R 100 UNIT/ML 3ML) INSULIN SLIDING SCAL... ACHS SQ 12/08/24 11:30 01/07/25 11:29 12/09/24 21:42 4 UNIT Lisinopril (Prinivil 10mg) 10 mg HS PO 12/08/24 21:00 01/07/25 20:59 12/09/24 13:33 10 MG Magnesium Sulfate 50 ml @ 0 mls/hr PROTOCOL IV 12/08/24 10:00 01/07/25 09:59 12/08/24 22:40 25 MLS/HR Metoprolol Succinate (TopROL XL) 25 mg DAILY PO 12/09/24 09:00 01/08/25 08:59 12/10/24 08:27 25 MG Morphine Sulfate (morPHINE 4MG SYG) 2 mg Q4H PRN IVP SEVERE PAIN (7-10) 12/10/24 03:30 12/17/24 03:29 12/10/24 03:05 2 MG Ondansetron HCl (zoFRAN 4MG INJ) 4 mg Q6H PRN IVP NAUSEA/VOMITING 12/08/24 10:00 01/07/25 09:59 Potassium Chloride 100 ml @ 100 mls/hr AD PRN IV POTASSIUM PROTOCOL 12/08/24 10:00 01/07/25 09:59 Potassium Chloride (K-Dur/Klor-Con 20meq) 20 meq AD PRN PO POTASSIUM PROTOCOL 12/08/24 10:00 01/07/25 09:59 12/09/24 13:32 20 MEQ Potassium Chloride (KCl 10% Elixir 20meq/15ml) 20 meq AD PRN PO POTASSIUM PROTOCOL 12/08/24 10:00 01/07/25 09:59 12/09/24 13:32 20 MEQ Warfarin Sodium (Coumadin) 3 mg WARF PO 12/08/24 17:00 12/15/24 16:59 12/08/24 18:02 3 MG DIAGNOSTICS / RADIOLOGY: [ ] ASSESSMENT: Acute on chronic systolic and diastolic heart failure exacerbation with LVEF of 20-25 % from 2D echo in 2022, POA Cardiogenic edema with hypoxemic respiratory failure, POA Uncontrolled hyperglycemia, POA For outpatient cardiac follow up POA Coronary artery disease with remote coronary artery bypass grafting in 2004, POA Previous mechanical aortic valve placement in 2004, POA History of possible thrombus involving the left ventricular apex from 2D echocardiogram from , POA chronic anticoagulation with warfarin for mechanical valve, POA Hypertension, POA right upper lobe pulmonary nodule measuring 12 mm, POA Poorly controlled type 2 diabetes mellitus, POA Obesity, POA PLAN: Off antibiotics for signs of infection Trend WBCs O2 nasal cannula as needed Continue lisinopril, metoprolol Monitor blood pressure Follow up with Cardiology -obtain medical records -continue bridging to warfarin -continue IV diuresis Provide warfarin education Diabetic diet GI prophylaxis with famotidine Continue Lasix IV, monitor creatinine for worsening renal function No need for IV fluids Trend a.m. BMP Replete electrolytes as necessary DVT prophylaxis with heparin Trend a.m. CBC Full code Case was discussed with patient's nurse at bedside Attention time greater than 30 minutes NILE GROSS IV, MD Dec 10, 2024 09:48
--- NOTE | 2024-12-10 18:13 | PN ---
This is a 64-year-old female with a history of multivessel coronary artery disease status post CABG with concomitant mechanical aortic valve replacement in 2004, on chronic anticoagulation with warfarin, ischemic cardiomyopathy, left bundle-branch block, hypertension, hyperlipidemia and obesity. She was admitted 12/08/2024 secondary to acute CHF exacerbation. She underwent echocardiogram 12/08/2024 which demonstrates an ejection fraction of 15-20% with basal/mid/apical inferior wall thinning, scarring and akinesis, mid/apical anterior, anterolateral and inferolateral wall hypokinesis, stage III diastolic dysfunction, severely dilated left atrium, well-seated bioprosthetic aortic valve without significant perivalvular leak and severe bioprosthetic aortic valve stenosis with mean gradient of 52 mmHg, DVI 0.26 and moderate aortic valve regurgitation, moderate to severe mitral valve regurgitation and severe tricuspid valve regurgitation. Prior echocardiogram 10/16/2022 showed an ejection fraction 20 25% with normal mechanical aortic valve, mild mitral valve regurgitation, mild mitral valve stenosis and mild tricuspid valve regurgitation. She is currently in sinus rhythm with a left bundle-branch block, first-degree AV block with heart rates in the 70s. Chest x-ray 12/09/2024 is negative for consolidation or pulmonary venous congestion. White blood count 9.2, hemoglobin 14.1, hematocrit 41.7, platelets 199, creatinine 1.0, potassium 4.0, INR 1.50. urine culture shows E coli. She reports multiple falls prior to her admission which she attributed to low blood sugar. She describes episodes of weakness that improve after eating or drinking. She denies overt syncope. She also denies exertional shortness of breath or fatigue. She states that she is no longer working. On exam, she is in no acute distress, regular rate and rhythm, lungs are clear to auscultation bilaterally, no lower extremity edema is noted. Assessment: 1. 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 2. Advanced ischemic cardiomyopathy. 3. Left bundle-branch block. 4. Urinary tract infection secondary to E coli. 5. Remote history of CABG with concomitant mechanical aortic valve replacement in 2004. 6. Hypertension. 7. Hyperlipidemia. Plan: 1. She has had frequent falls which she has attributed to low blood sugar but denies overt syncope. Suspect that this is secondary to symptomatic aortic valve stenosis. She also has advanced ischemic cardiomyopathy with an ejection fraction of 15-20% with significant wall motion abnormalities. 2. Continue lisinopril 10 mg once daily, metoprolol succinate 25 mg once daily and IV furosemide 40 mg twice daily. 3. We will titrate warfarin to 4 mg daily until INR therapeutic between 2.5 and 3.5. Continue bridging with IV heparin. 4. She will require further workup of the aortic valve stenosis to include left heart catheterization. 5. We will reassess her LVEF after she has been on guideline directed medical therapy least three months. If her ejection fraction remains 35% or less, she will require cardiac resynchronization therapy defibrillator. Vitals/Labs Vital Signs Date Time Temp Pulse Resp B/P (MAP) Pulse Ox O2 Delivery O2 Flow Rate FiO2 12/10/24 15:58 97.9 68 16 107/59 99 Room Air 12/10/24 08:00 0 21 Laboratory Tests 12/09/24 18:06 12/10/24 03:25 MILENA INTERIANO PAC Dec 10, 2024 18:13
[2024-12-10] MEDS: WARFARIN SODIUM 1 MG TAB PO ONE (18:19)
--- NOTE | 2024-12-10 21:20 | NUR ---
RIGHT WRIST IV ACCIDENTELY DISCONTINUED BY PATIENT SITE ACCESSED, MONITOR FOR BLEEDING, NO ACTUAL BLEEDING AT THIS TIME, WILL CONT TO MONITOR
--- NOTE | 2024-12-10 22:36 | PN ---
Endocrinology progress note DOS: 12/10/24 subjective: Home diabetic regimen: she does not take any medications Hba1c 12.9% glucose are improving now. REVIEW OF SYSTEMS CONSTITUTIONAL: Denies fevers, chills, or night sweats. No unintentional weight loss reported. NEUROLOGICAL: Denies headache, amaurosis fugax, motor weakness, sensory deficit, vertigo/spinning sensation, gait abnormalities, or tremors. ENT: No hearing loss, otalgia, otorrhea, rhinitis, rhinorrhea, hoarseness, or sore throat. CARDIOVASCULAR: Shortness of breath close improving PULMONARY: Denies any shortness of breath, cough, phlegm/sputum, hemoptysis, pleuritic chest pain. SLEEP: Denies morning headaches, daytime somnolence or napping. Denies difficulty falling asleep, staying asleep, waking from sleep. Denies knowledge of snoring. GASTROINTESTINAL: Denies any type of dysphagia to either liquids or solids. Denies nausea, vomiting, pyrosis, early satiety, abdominal pain, diarrhea, constipation, or changes in stool consistency or caliber. Denies coffee-ground emesis, hematemesis, hematochezia, or melanotic stools. GENITOURINARY: Denies frequency, urgency, nocturia, hematuria or incontinence (Storage/Irritative symptoms.) Low urinary stream, straining to void, urinary intermittency or hesitancy, splitting of the voiding stream, terminal dribbling. ENDOCRINOLOGIC: Denies polyuria, polydipsia, polyphagia or heat/cold intolerances. HEMATOLOGIC: Denies thrombophilia/previous clots, or coagulopathy/bleeding disorders. ONCOLOGIC: Denies personal history of malignancy. DERMATOLOGIC: Denies rashes or pruritus. PSYCHIATRIC: Denies any suicidal or homicidal ideation. Denies hallucinations. 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 CLINICAL HISTORY: Shortness of breath COMPARISON: Prior chest radiograph dated October 15, 2022 FINDINGS: Poststernotomy status. Moderate cardiomegaly with bilateral hilar congestion. Patchy, ill-defined infiltrates in the bilateral lower lobes and subtle blunting of the bilateral costophrenic angle are probably a minimal bilateral pleural effusion. No evidence of pneumothorax. Stable 12 mm nodular density in the right upper zone. No acute osseous abnormality. Mild degenerative changes in the mid and lower thoracic spine. IMPRESSION: Poststernotomy status. Moderate cardiomegaly with bilateral hilar congestion. Patchy, ill-defined infiltrates in the bilateral lower lobes and subtle blunting of the bilateral costophrenic angle are probably a minimal bilateral pleural effusion. No evidence of pneumothorax. Stable 12 mm nodular density in the right upper zone. Compared to the prior study, there is a mild decrease in the right-sided pleural effusion and interval development of right lower lobe infiltrates. /[place] DICTATED BY: KENNY VALDERRAMA Jr., MD DATE: 12/08/24840 ELECTRONICALLY SIGNED BY: KENNY VALDERRAMA Jr., MD DATE: 12/08/24840 ASSESSMENT: Uncontrolled hyperglycemia, POA Home diabetic regimen: she does not take any medications Hba1c 12.9% glucose are improving and insulin adjusted. insulin was decrease due to low normal glucose. Acute on chronic systolic and diastolic heart failure exacerbation with LVEF of 20-25 % from 2D echo in 2022, POA Cardiogenic edema with hypoxemic respiratory failure, POA For outpatient cardiac follow up POA History of coronary artery bypass grafting in 2004, POA History of mechanical aortic valve placement in 2004, POA History of possible thrombus involving the left ventricular apex from 2D echocardiogram from , POA History of chronic anticoagulation with warfarin for mechanical valve, POA Hypertension, POA History of right upper lobe pulmonary nodule measuring 12 mm, POA Poorly controlled type 2 diabetes mellitus, POA Obesity, POA PLAN: continue [id number] units daily and adjust for fasting glucose. continue Regular insulin 6 units three times before meals and adjust for post- prandial glucose. Continue high dose sliding scale insulin. Monitor glucose q x 6 hourly. Continue carb consistent diet. Keep glucose less than 180 mg/dl. Patient will need lantus 30 units daily, jardiance 25 mg daily and metformin 1000 mg bid at discharge. Vitals/Labs Vital Signs Date Time Temp Pulse Resp B/P (MAP) Pulse Ox O2 Delivery O2 Flow Rate FiO2 12/10/24 19:09 98.1 74 18 104/55 97 Room Air 12/10/24 08:00 0 21 Laboratory Tests 12/10/24 03:25 Medications Current Medications Sodium Chloride 1,000 ml @ 0 mls/hr ONCE ONCE IV Last administered on 12/08/24at 08:13; Start 12/08/24 at 08:00; Stop 12/08/24 at 09:33; Status DC Insulin Human Regular 10 unit ONCE ONCE IV; Start 12/08/24 at 08:00; Stop 12/08/24 at 07:44; Status DC Insulin Human Regular 5 unit ONCE ONCE SQ Last administered on 12/08/24at 08:07; Start 12/08/24 at 08:00; Stop 12/08/24 at 08:01; Status DC Furosemide 40 mg ONCE ONCE IV Last administered on 12/08/24at 11:35; Start 12/08/24 at 10:00; Stop 12/08/24 at 10:01; Status DC Budesonide 0.5 mg BIDRESP IH Last administered on 12/10/24at 07:08; Start 12/08/24 at 18:00; Stop 12/10/24 at 17:23; Status DC Potassium Chloride 100 ml @ 100 mls/hr AD PRN IV; Start 12/08/24 at 10:00; Stop 01/07/25 at 09:59 Potassium Chloride 20 meq AD PRN PO Last administered on 12/09/24at 13:32; Start 12/08/24 at 10:00; Stop 01/07/25 at 09:59 Potassium Chloride 20 meq AD PRN PO Last administered on 12/09/24at 13:32; Start 12/08/24 at 10:00; Stop 01/07/25 at 09:59 Magnesium Sulfate 50 ml @ 0 mls/hr PROTOCOL IV Last administered on 12/08/24at 22:40; Start 12/08/24 at 10:00; Stop 01/07/25 at 09:59 Acetaminophen 650 mg Q6H PRN PO Last administered on 12/09/24at 21:40; Start 12/08/24 at 10:00; Stop 01/07/25 at 09:59 Ondansetron HCl 4 mg Q6H PRN IVP; Start 12/08/24 at 10:00; Stop 01/07/25 at 09:59 Insulin Human Regular INSULIN SLIDING SCAL... ACHS SQ Last administered on 12/10/24at 20:43; Start 12/08/24 at 11:30; Stop 01/07/25 at 11:29 Furosemide 40 mg BID IV Last administered on 12/10/24at 20:39; Start 12/08/24 at 21:00; Stop 01/07/25 at 20:59 Famotidine 20 mg BID PO Last administered on 12/10/24at 20:39; Start 12/08/24 at 21:00; Stop 01/07/25 at 20:59 Lisinopril 10 mg HS PO Last administered on 12/10/24at 20:40; Start 12/08/24 at 21:00; Stop 01/07/25 at 20:59 Warfarin Sodium 3 mg WARF PO Last administered on 12/10/24at 17:04; Start 12/08/24 at 17:00; Stop 12/10/24 at 18:04; Status DC Insulin Glargine 15 units HS SQ Last administered on 12/08/24at 20:29; Start 12/08/24 at 21:00; Stop 12/08/24 at 22:03; Status DC Insulin Human Regular 5 unit TIDAC SQ Last administered on 12/08/24at 18:07; Start 12/08/24 at 17:00; Stop 12/08/24 at 22:03; Status DC Metoprolol Succinate 25 mg DAILY PO Last administered on 12/10/24at 08:27; Start 12/09/24 at 09:00; Stop 01/08/25 at 08:59 Heparin Sodium/ Dextrose 250 ml @ 0 mls/hr PROTOCOL IV Last administered on 12/10/24at 10:39; Start 12/08/24 at 15:00; Stop 01/07/25 at 14:59 Insulin Glargine 30 units DAILY SQ Last administered on 12/09/24at 09:00; Start 12/09/24 at 09:00; Stop 12/10/24 at 07:22; Status DC Insulin Human Regular 12 unit TIDAC SQ Last administered on 12/09/24at 11:30; Start 12/09/24 at 07:30; Stop 12/10/24 at 07:22; Status DC Cyclobenzaprine HCl 5 mg ONCE ONCE PO Last administered on 12/08/24at 23:24; Start 12/08/24 at 23:30; Stop 12/08/24 at 23:31; Status DC Heparin Sodium (Porcine) 5,000 unit STK-MED ONCE .ROUTE Last administered on 12/09/24at 11:44; Start 12/09/24 at 11:44; Stop 12/09/24 at 11:44; Status DC Ceftriaxone Sodium 1 gm Q24H IVPB Last administered on 12/10/24at 12:01; Start 12/09/24 at 12:30; Stop 12/19/24 at 12:29 Morphine Sulfate 2 mg Q4H PRN IVP Last administered on 12/10/24at 03:05; Start 12/10/24 at 03:30; Stop 12/17/24 at 03:29 Insulin Glargine 25 units DAILY SQ Last administered on 12/10/24at 08:25; Start 12/10/24 at 09:00; Stop 01/09/25 at 08:59 Insulin Human Regular 6 unit TIDAC SQ Last administered on 12/10/24at 17:11; Start 12/10/24 at 07:30; Stop 01/09/25 at 07:29 Warfarin Sodium 4 mg WARF PO; Start 12/11/24 at 17:00; Stop 12/18/24 at 16:59 Warfarin Sodium 1 mg ONCE ONCE PO Last administered on 12/10/24at 18:19; Start 12/10/24 at 18:30; Stop 12/10/24 at 18:31; Status DC MARYBEL MARINELLI MD Dec 10, 2024 22:36
[2024-12-11] VITALS (8 sets, daily range): BP systolic 93–117; BP diastolic 53–71; PULSE 62–77; RESP 16–18; TEMP 97.6–98.5; O2SAT 99–100
[2024-12-11 05:10] LABS: NUCLEATED RED BLOOD CELLS 0.0 % (0.0-0.19); PLATELET COUNT (AUTO) 194.0 K/uL (130-400); RED BLOOD CELL COUNT(AUTO) 4.65 MIL/uL (4.00-5.50); RED CELL DISTRIBUTION WIDTH 13.7 % (11.0-15.5); WHITE BLOOD COUNT (AUTO) 8.0 K/uL (4.8-10.8)
[2024-12-11 05:20] LABS: CREATININE 0.8 mg/dL (0.5-1.0); GLOMERULAR FILTR. RATE CALC 81.0 mL/min (>90); GLUCOSE,RANDOM 104.0 mg/dL (70-105); SODIUM SERUM 138.0 mmol/L (136-145); UREA NITROGEN, BLOOD 22.0 mg/dL (7-18)
[2024-12-11 05:25] LABS: INR 1.3 (0.85-1.15)
--- NOTE | 2024-12-11 13:58 | PN ---
This is a 64-year-old female with a history of multivessel coronary artery disease status post CABG with concomitant mechanical aortic valve replacement in 2004, on chronic anticoagulation with warfarin, ischemic cardiomyopathy, left bundle-branch block, hypertension, hyperlipidemia and obesity. She was admitted 12/08/2024 secondary to acute CHF exacerbation. She underwent echocardiogram 12/08/2024 which demonstrates an ejection fraction of 15-20% with basal/mid/apical inferior wall thinning, scarring and akinesis, mid/apical anterior, anterolateral and inferolateral wall hypokinesis, stage III diastolic dysfunction, severely dilated left atrium, well-seated bioprosthetic aortic valve without significant perivalvular leak and severe bioprosthetic aortic valve stenosis with mean gradient of 52 mmHg, DVI 0.26 and moderate aortic valve regurgitation, moderate to severe mitral valve regurgitation and severe tricuspid valve regurgitation. Prior echocardiogram 10/16/2022 showed an ejection fraction 20 25% with normal mechanical aortic valve, mild mitral valve regurgitation, mild mitral valve stenosis and mild tricuspid valve regurgitation. She is currently in sinus rhythm with a left bundle-branch block, first-degree AV block with heart rates in the 70s. White blood count 8.0, hemoglobin 14.6, hematocrit 43.2, platelets 194, creatinine 0.8, potassium 3.6. INR 1.30. urine culture shows E coli. She offers up no new cardiac complaints today. On exam, she is in no acute distress, regular rate and rhythm, lungs are clear to auscultation bilaterally, no lower extremity edema is noted. Assessment: 1. 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 2. Advanced ischemic cardiomyopathy. 3. Left bundle-branch block. 4. Urinary tract infection secondary to E coli. 5. Remote history of CABG with concomitant mechanical aortic valve replacement in 2004. 6. Hypertension. 7. Hyperlipidemia. Plan: Discussed with Dr. Andrade. 1. She has had frequent falls which she has attributed to low blood sugar but denies overt syncope. Suspect that this is secondary to symptomatic aortic valve stenosis. She also has advanced ischemic cardiomyopathy with an ejection fraction of 15-20% with significant wall motion abnormalities. 2. She is at extremely high risk for both TAVR or surgical aortic valve replacement due to severely depressed/dilated left ventricle. We recommend medical management of CHF/AF and achieving a therapeutic INR of 2.5-3.5. 3. Continue lisinopril 10 mg once daily, metoprolol succinate 25 mg once daily and IV furosemide 40 mg twice daily. 4. We will order warfarin 5 mg x1 this evening and start warfarin 4 mg daily tomorrow. Continue bridging with IV heparin. Vitals/Labs Vital Signs Date Time Temp Pulse Resp B/P (MAP) Pulse Ox O2 Delivery O2 Flow Rate FiO2 12/11/24 12:19 97.9 68 16 106/57 99 Room Air 12/11/24 08:00 0 21 Laboratory Tests 12/11/24 04:54 MILENA INTERIANO PAC Dec 11, 2024 13:58
[2024-12-11] MEDS: WARFARIN SODIUM 5 MG TAB PO ONE (16:48)
[2024-12-11] MEDS ORDERED: WARFARIN SODIUM 1 MG TAB PO SCH (17:00)
--- NOTE | 2024-12-11 22:59 | PN ---
Endocrinology progress note DOS: 12/11/24 subjective: Home diabetic regimen: she does not take any medications Hba1c 12.9% glucose are improving now. morning insulin was not given. REVIEW OF SYSTEMS CONSTITUTIONAL: Denies fevers, chills, or night sweats. No unintentional weight loss reported. NEUROLOGICAL: Denies headache, amaurosis fugax, motor weakness, sensory deficit, vertigo/spinning sensation, gait abnormalities, or tremors. ENT: No hearing loss, otalgia, otorrhea, rhinitis, rhinorrhea, hoarseness, or sore throat. CARDIOVASCULAR: Shortness of breath close improving PULMONARY: Denies any shortness of breath, cough, phlegm/sputum, hemoptysis, pleuritic chest pain. SLEEP: Denies morning headaches, daytime somnolence or napping. Denies difficulty falling asleep, staying asleep, waking from sleep. Denies knowledge of snoring. GASTROINTESTINAL: Denies any type of dysphagia to either liquids or solids. Denies nausea, vomiting, pyrosis, early satiety, abdominal pain, diarrhea, constipation, or changes in stool consistency or caliber. Denies coffee-ground emesis, hematemesis, hematochezia, or melanotic stools. GENITOURINARY: Denies frequency, urgency, nocturia, hematuria or incontinence (Storage/Irritative symptoms.) Low urinary stream, straining to void, urinary intermittency or hesitancy, splitting of the voiding stream, terminal dribbling. ENDOCRINOLOGIC: Denies polyuria, polydipsia, polyphagia or heat/cold intolerances. HEMATOLOGIC: Denies thrombophilia/previous clots, or coagulopathy/bleeding disorders. ONCOLOGIC: Denies personal history of malignancy. DERMATOLOGIC: Denies rashes or pruritus. PSYCHIATRIC: Denies any suicidal or homicidal ideation. Denies hallucinations. 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 CLINICAL HISTORY: Shortness of breath COMPARISON: Prior chest radiograph dated October 15, 2022 FINDINGS: Poststernotomy status. Moderate cardiomegaly with bilateral hilar congestion. Patchy, ill-defined infiltrates in the bilateral lower lobes and subtle blunting of the bilateral costophrenic angle are probably a minimal bilateral pleural effusion. No evidence of pneumothorax. Stable 12 mm nodular density in the right upper zone. No acute osseous abnormality. Mild degenerative changes in the mid and lower thoracic spine. IMPRESSION: Poststernotomy status. Moderate cardiomegaly with bilateral hilar congestion. Patchy, ill-defined infiltrates in the bilateral lower lobes and subtle blunting of the bilateral costophrenic angle are probably a minimal bilateral pleural effusion. No evidence of pneumothorax. Stable 12 mm nodular density in the right upper zone. Compared to the prior study, there is a mild decrease in the right-sided pleural effusion and interval development of right lower lobe infiltrates. /[place] DICTATED BY: KENNY VALDERRAMA Jr., MD DATE: 12/08/24840 ELECTRONICALLY SIGNED BY: KENNY VALDERRAMA Jr., MD DATE: 12/08/24840 ASSESSMENT: Uncontrolled hyperglycemia, POA Home diabetic regimen: she does not take any medications Hba1c 12.9% glucose are improving and insulin adjusted. Acute on chronic systolic and diastolic heart failure exacerbation with LVEF of 20-25 % from 2D echo in 2022, POA Cardiogenic edema with hypoxemic respiratory failure, POA For outpatient cardiac follow up POA History of coronary artery bypass grafting in 2004, POA History of mechanical aortic valve placement in 2004, POA History of possible thrombus involving the left ventricular apex from 2D echocardiogram from , POA History of chronic anticoagulation with warfarin for mechanical valve, POA Hypertension, POA History of right upper lobe pulmonary nodule measuring 12 mm, POA Poorly controlled type 2 diabetes mellitus, POA Obesity, POA PLAN: continue Lantus 25 units daily and adjust for fasting glucose. increase Regular insulin to 8 units three times before meals and adjust for post-prandial glucose. Continue high dose sliding scale insulin. Monitor glucose q x 6 hourly. Continue carb consistent diet. Keep glucose less than 180 mg/dl. Vitals/Labs Vital Signs Date Time Temp Pulse Resp B/P (MAP) Pulse Ox O2 Delivery O2 Flow Rate FiO2 12/11/24 20:00 100 Room Air* 0 21 12/11/24 19:13 98.1 67 18 117/71 Laboratory Tests 12/11/24 04:54 Medications Current Medications Sodium Chloride 1,000 ml @ 0 mls/hr ONCE ONCE IV Last administered on 12/08/24at 08:13; Start 12/08/24 at 08:00; Stop 12/08/24 at 09:33; Status DC Insulin Human Regular 10 unit ONCE ONCE IV; Start 12/08/24 at 08:00; Stop 12/08/24 at 07:44; Status DC Insulin Human Regular 5 unit ONCE ONCE SQ Last administered on 12/08/24at 08:07; Start 12/08/24 at 08:00; Stop 12/08/24 at 08:01; Status DC Furosemide 40 mg ONCE ONCE IV Last administered on 12/08/24at 11:35; Start 12/08/24 at 10:00; Stop 12/08/24 at 10:01; Status DC Budesonide 0.5 mg BIDRESP IH Last administered on 12/10/24at 07:08; Start 12/08/24 at 18:00; Stop 12/10/24 at 17:23; Status DC Potassium Chloride 100 ml @ 100 mls/hr AD PRN IV; Start 12/08/24 at 10:00; Stop 01/07/25 at 09:59 Potassium Chloride 20 meq AD PRN PO Last administered on 12/09/24at 13:32; Start 12/08/24 at 10:00; Stop 01/07/25 at 09:59 Potassium Chloride 20 meq AD PRN PO Last administered on 12/11/24at 16:47; Start 12/08/24 at 10:00; Stop 01/07/25 at 09:59 Magnesium Sulfate 50 ml @ 0 mls/hr PROTOCOL IV Last administered on 12/08/24at 22:40; Start 12/08/24 at 10:00; Stop 01/07/25 at 09:59 Acetaminophen 650 mg Q6H PRN PO Last administered on 12/09/24at 21:40; Start 12/08/24 at 10:00; Stop 01/07/25 at 09:59 Ondansetron HCl 4 mg Q6H PRN IVP; Start 12/08/24 at 10:00; Stop 01/07/25 at 09:59 Insulin Human Regular INSULIN SLIDING SCAL... ACHS SQ Last administered on 12/11/24at 20:20; Start 12/08/24 at 11:30; Stop 01/07/25 at 11:29 Furosemide 40 mg BID IV Last administered on 12/11/24at 20:17; Start 12/08/24 at 21:00; Stop 01/07/25 at 20:59 Famotidine 20 mg BID PO Last administered on 12/11/24at 20:17; Start 12/08/24 at 21:00; Stop 01/07/25 at 20:59 Lisinopril 10 mg HS PO Last administered on 12/11/24at 20:18; Start 12/08/24 at 21:00; Stop 01/07/25 at 20:59 Warfarin Sodium 3 mg WARF PO Last administered on 12/10/24at 17:04; Start 12/08/24 at 17:00; Stop 12/10/24 at 18:04; Status DC Insulin Glargine 15 units HS SQ Last administered on 12/08/24at 20:29; Start 12/08/24 at 21:00; Stop 12/08/24 at 22:03; Status DC Insulin Human Regular 5 unit TIDAC SQ Last administered on 12/08/24at 18:07; Start 12/08/24 at 17:00; Stop 12/08/24 at 22:03; Status DC Metoprolol Succinate 25 mg DAILY PO Last administered on 12/11/24at 08:04; Start 12/09/24 at 09:00; Stop 01/08/25 at 08:59 Heparin Sodium/ Dextrose 250 ml @ 0 mls/hr PROTOCOL IV Last administered on 12/11/24at 16:50; Start 12/08/24 at 15:00; Stop 01/07/25 at 14:59 Insulin Glargine 30 units DAILY SQ Last administered on 12/09/24at 09:00; Start 12/09/24 at 09:00; Stop 12/10/24 at 07:22; Status DC Insulin Human Regular 12 unit TIDAC SQ Last administered on 12/09/24at 11:30; Start 12/09/24 at 07:30; Stop 12/10/24 at 07:22; Status DC Cyclobenzaprine HCl 5 mg ONCE ONCE PO Last administered on 12/08/24at 23:24; Start 12/08/24 at 23:30; Stop 12/08/24 at 23:31; Status DC Heparin Sodium (Porcine) 5,000 unit STK-MED ONCE .ROUTE Last administered on 12/09/24at 11:44; Start 12/09/24 at 11:44; Stop 12/09/24 at 11:44; Status DC Ceftriaxone Sodium 1 gm Q24H IVPB Last administered on 12/11/24at 12:14; Start 12/09/24 at 12:30; Stop 12/19/24 at 12:29 Morphine Sulfate 2 mg Q4H PRN IVP Last administered on 12/11/24at 00:07; Start 12/10/24 at 03:30; Stop 12/17/24 at 03:29 Insulin Glargine 25 units DAILY SQ Last administered on 12/11/24at 08:15; Start 12/10/24 at 09:00; Stop 01/09/25 at 08:59 Insulin Human Regular 6 unit TIDAC SQ Last administered on 12/11/24at 16:49; Start 12/10/24 at 07:30; Stop 01/09/25 at 07:29 Warfarin Sodium 4 mg WARF PO; Start 12/11/24 at 17:00; Stop 12/11/24 at 12:32; Status DC Warfarin Sodium 1 mg ONCE ONCE PO Last administered on 12/10/24at 18:19; Start 12/10/24 at 18:30; Stop 12/10/24 at 18:31; Status DC Insulin Human Regular 6 unit ONCE ONCE SQ Last administered on 12/11/24at 08:16; Start 12/11/24 at 08:30; Stop 12/11/24 at 08:31; Status DC Warfarin Sodium 4 mg WARF PO; Start 12/12/24 at 17:00; Stop 12/19/24 at 16:59 Warfarin Sodium 5 mg ONCE ONCE PO Last administered on 12/11/24at 16:48; Start 12/11/24 at 17:00; Stop 12/11/24 at 17:01; Status DC MARYBEL MARINELLI MD Dec 11, 2024 22:59
[2024-12-12] VITALS (8 sets, daily range): BP systolic 102–116; BP diastolic 51–65; PULSE 65–74; RESP 18; TEMP 97.8–98.8; O2SAT 98–100
[2024-12-12 04:46] LABS: NUCLEATED RED BLOOD CELLS 0.0 % (0.0-0.19); PLATELET COUNT (AUTO) 202.0 K/uL (130-400); RED BLOOD CELL COUNT(AUTO) 4.42 MIL/uL (4.00-5.50); RED CELL DISTRIBUTION WIDTH 13.7 % (11.0-15.5); WHITE BLOOD COUNT (AUTO) 7.4 K/uL (4.8-10.8)
[2024-12-12 05:01] LABS: INR 1.44 (0.85-1.15)
[2024-12-12 05:26] LABS: CREATININE 0.7 mg/dL (0.5-1.0); GLOMERULAR FILTR. RATE CALC 95.0 mL/min (>90); GLUCOSE,RANDOM 116.0 mg/dL (70-105); SODIUM SERUM 137.0 mmol/L (136-145); UREA NITROGEN, BLOOD 19.0 mg/dL (7-18)
--- NOTE | 2024-12-12 08:48 | PN ---
[facility] CARDIOLOGY PROGRESS NOTE Date Patient Seen: Dec 12, 2024 Time of Visit: 08:31 Interval History: [No acute events overnight. The patient states that her shortness of breath and dizziness are significantly better . Urine output overnight 300 ml . ] Physical Examination: GENERAL: No acute distress. HEAD: Normal with no signs of head trauma. EYES: Conjunctiva and sclera normal. ENT: Hearing grossly intact, normal oropharynx. NECK: Supple without JVD. There is no tenderness, lymphadenopathy, or masses. No thyromegaly. Normal carotid upstrokes without bruits. LUNGS: Clear breath sounds bilaterally. No wheezes, or rhonchi. HEART: Normal rate and rhythm. Systolic ejection murmur ABD: Bowel sounds normal, soft, nontender, no masses, no organomegaly. No audible bruits. : Not examined LYMPH: No lymphadenopathy noted. EXT: RLE with trace edema. SKIN: RLE with dark discoloration. NEURO: Awake, alert, and oriented x3. No focal sensory or strength deficits noted. Laboratory: [ ] Hematology Labs: Test 12/12/24 04:36 Range/Units White Blood Count 7.4 4.8-10.8 K/uL Red Blood Count 4.42 4.00-5.50 MIL/uL Hemoglobin 13.6 12.0-16.0 g/dL Hematocrit 40.6 36-48 % Mean Corpuscular Volume 91.9 79-99 fL Mean Corpuscular Hemoglobin 30.8 27.0-33.0 pg Mean Corpuscular Hemoglobin Concent 33.5 32.0-36.0 g/dL Red Cell Distribution Width 13.7 11.0-15.5 % Platelet Count 202 130-400 K/uL Mean Platelet Volume 10.4 7.5-10.5 fL Nucleated Red Blood Cells 0.0 0.0-0.19 % Chemistry Labs: Test 12/12/24 05:07 12/12/24 04:36 Range/Units Whole Blood Glucose 111 #H 70-110 MG/DL Sodium Level 137 136-145 mmol/L Potassium Level 4.0 3.5-5.1 mmol/L Chloride Level 101 101-111 mmol/L Carbon Dioxide Level 27 21-32 mmol/L Blood Urea Nitrogen 19 H 7-18 mg/dL Creatinine 0.7 0.5-1.0 mg/dL Glomerular Filtration Rate Calc 95 >90 mL/min Random Glucose 116 H 70-105 mg/dL Total Calcium 9.1 8.5-10.1 mg/dL Coagulation Labs: Test 12/12/24 06:15 12/12/24 04:36 Range/Units Activated Partial Thromboplast Time 80.2 #H 26.3-35.5 SEC Prothrombin Time 14.7 H 9.6-11.6 SEC Prothromb Time International Ratio 1.44 H 0.85-1.15 Diagnostics / Radiology: [Copy/Paste Echos/Imaging Report here] Impression and Plan: CAD s/p CABG with mechanical AVR Chronic anticoagulation with warfarin, Subtherapeutic INR Acute on chronic combined systolic and diastolic heart failure LVEF of 20-25%, stage II diastolic dysfunction, and possible thrombus in the LV apex via 2D echo on 10/16/2022 Hypokalemia Lexiscan stress test on 10/16/2022 with fixed defect in the inferior, anteroseptal, and inferolateral bermudez consistent with scar, LVEF of 37%, with normal TID Hypertension Hyperlipidemia Uncontrolled diabetes mellitus type , A1c 12.9% Morbid obesity Noncompliance #Advanced systolic and diastolic HFrEF ICM - LVEF 15-20% - NYHA II , Stage D Compensated on exam CAD s/p CABG ( unknown anatomy ) Strict Is and Os with daily weights . Overnight urine output 300 ml Continue Lasix 40 mg IV ever y12 hrs Optimize GDMT :Toprol XL 25 mg daily and Lisinopril 10 mg daily Start Aldactone 25 mg daily We will order a repeat chest X ray #Severe aortic stenosis s/p mechanical AVR The patient states that her symptoms of shortness of breath has improved Coumadin 5 mg every 24 hrs PO . Goal INR is 2.0-3.0 Continue IV heparin Repletion of potassium to goal >/= 4.0, magnesium >/= 2.0 Thank you for this consult , cardiology will continue to follow along. Mike Majano MD ATTESTATION BY PHYSICIAN I have seen and examined the patient, reviewed the above documentation, participated in medical decision making, made necessary modifications, and agree with the treatment plan as documented by my mid-level provider above. MD COLTON Kelly JAMES R MD Dec 12, 2024 08:48
[2024-12-12] MEDS: SPIRONOLACTONE 25 MG TAB PO SCH (09:13)
--- NOTE | 2024-12-12 10:48 | PN ---
[facility] PROGRESS NOTE Date of Service: Dec 11, 2024 Time of Service: 10:46 SUBJECTIVE: This is a 64-year-old female with underlying history of hypertension, previous history of coronary artery bypass grafting and mechanical aortic valve replacement in 2004, history of chronic anticoagulation with Coumadin, ischemic cardiomyopathy with last known LVEF of 20-25%, possible history of apical left ventricular thrombus noted on 2D echo from 2022, type 2 diabetes mellitus who presented to the ER for further evaluation of acute onset of shortness of breadth that started close to 4:00 a.m. last night. Patient states that she woke up feeling short of breath with dizziness and she felt like she may have dose sugar. Patient does not have a home glucometer but she states that due to her symptoms, she put some sugar in a glass of water and drank it to see if it relieves her symptoms. She continues to have symptoms of shortness of breath and generalized uneasiness and she drank some coffee to see if symptoms improve. Patient's symptoms do not improve prompting her to come to the ER for further evaluation. Patient denies any previous history of stroke or seizures. She has not been able to follow up with Cardiology as outpatient june and she has significant cardiac history including history of severe ischemic cardiomyopathy with LVEF of 20-25% from 2D echocardiogram from 2022, she has a history of mecha nical aortic valve and coronary artery bypass grafting in 2004. She reports taking Coumadin 2 mg daily. She will is followed by PCP with regards to management of Coumadin. She denies any fevers, chills, or productive cough. She denies noticing significant swelling of the lower extremity or weight gain. She denies any pleurisy. On presentation to the hospital, patient was noted to be afebrile with T-max of 98.2 F, heart rate of 108, blood pressure of 138/76. Patient was saturating 90% on room air. Labs on presentation showed WBC count of 9100, hemoglobin of 14.4, platelet count of 726121. BMP showed sodium of 138, potassium 3.8, chloride of 103, CO2 of 26, BUN of six, creatinine of 0.7, blood glucose of 405, BNP close to 1000, cardiac troponin showed high sensitivity troponin of 48. Chest x-ray showed cardiomegaly with bilateral hilar congestion and ill-defined infiltrates of the bilateral lobes with minimal pleural effusion. Patient was also noted to have 12 mm nodular density in the right upper lobe. Patient will be admitted for further treatment and management of acute on chronic systolic and diastolic heart failure exacerbation in the setting of known history of advanced cardiomyopathy. Blood sugars are uncontrolled, patient will be sliding on basal Lantus for further management. We will see how patient progresses in the next 2-3 days and we will obtain further cardiac workup and consultation with Cardiology will be requested this admission. 12/09 patient's shortness of breath has improved. Undergoing bridging to warfarin with heparin also undergoing IV diuresis 12/10 IV diuresis. Patient is refusing warfarin as she feels she is getting enough blood thinners. We will educate regarding the need for warfarin bridging with heparin 12/11 patient is resting comfortably in bed. No new complaints or concerns. She continues on warfarin and heparin for bridging. INR is 1.3. Family reports patient has lapses in medication due to for access to warfarin. They are requesting to change pharmacy. Nurse updated pharmacy as per patient and family request. REVIEW OF SYSTEMS CONSTITUTIONAL: Denies fevers, chills, or night sweats. No unintentional weight loss reported. NEUROLOGICAL: Denies headache, amaurosis fugax, motor weakness, sensory deficit, vertigo/spinning sensation, gait abnormalities, or tremors. ENT: No hearing loss, otalgia, otorrhea, rhinitis, rhinorrhea, hoarseness, or sore throat. CARDIOVASCULAR: Shortness of breath close to 4:00 a.m. today with generalized fatigue PULMONARY: Denies any shortness of breath, cough, phlegm/sputum, hemoptysis, pleuritic chest pain. SLEEP: Denies morning headaches, daytime somnolence or napping. Denies difficulty falling asleep, staying asleep, waking from sleep. Denies knowledge of snoring. GASTROINTESTINAL: Denies any type of dysphagia to either liquids or solids. Denies nausea, vomiting, pyrosis, early satiety, abdominal pain, diarrhea, constipation, or changes in stool consistency or caliber. Denies coffee-ground emesis, hematemesis, hematochezia, or melanotic stools. GENITOURINARY: Denies frequency, urgency, nocturia, hematuria or incontinence (Storage/Irritative symptoms.) Low urinary stream, straining to void, urinary intermittency or hesitancy, splitting of the voiding stream, terminal dribbling. ENDOCRINOLOGIC: Denies polyuria, polydipsia, polyphagia or heat/cold intolerances. HEMATOLOGIC: Denies thrombophilia/previous clots, or coagulopathy/bleeding disorders. ONCOLOGIC: Denies personal history of malignancy. DERMATOLOGIC: Denies rashes or pruritus. PSYCHIATRIC: Denies any suicidal or homicidal ideation. Denies hallucinations. PHYSICAL EXAM GENERAL APPEARANCE: The patient is awake, alert, and oriented, in no acute cardiopulmonary distress. Patient is sitting up in the bed, she is obese NEUROLOGICAL: Cranial nerves II-XII grossly intact. Motor is 5/5 in bilateral upper and lower extremities proximal to distal. No sensory deficits. HEENT: Face is symmetric. Pupils are equal and reactive. Extraocular movements are intact. NECK: Supple. No JVD. No thyromegaly. No submental, submandibular, pre- /postauricular, occipital or supraclavicular lymphadenopathy. CHEST: Normal chest expansion. No Telemetry. LUNGS: Crackles noted of bilateral lung bases CARDIOVASCULAR: Regular. Mechanical click auscultated. No appreciable rubs, murmurs or gallops. ABDOMEN: Soft, nontender, and nondistended. There is no rebound, voluntary guarding, or rigidity. : Deferred. No Salguero. EXTREMITIES: Trace edema of the lower extremities. No clubbing. Good capillary refill. SKIN: No skin breakdown. Vital Signs (last 8hr) Date Time Temp Pulse Resp B/P (MAP) Pulse Ox O2 Delivery O2 Flow Rate FiO2 12/12/24 08:00 100 Room Air* 0 21 12/12/24 07:44 98.2 70 18 113/65 98 Room Air 12/12/24 04:06 98.8 70 18 109/57 99 Room Air LABS: Laboratory: Test 12/12/24 06:15 12/12/24 05:07 12/12/24 04:36 Range/Units Activated Partial Thromboplast Time 80.2 #H 26.3-35.5 SEC Whole Blood Glucose 111 #H 70-110 MG/DL White Blood Count 7.4 4.8-10.8 K/uL Red Blood Count 4.42 4.00-5.50 MIL/uL Hemoglobin 13.6 12.0-16.0 g/dL Hematocrit 40.6 36-48 % Mean Corpuscular Volume 91.9 79-99 fL Mean Corpuscular Hemoglobin 30.8 27.0-33.0 pg Mean Corpuscular Hemoglobin Concent 33.5 32.0-36.0 g/dL Red Cell Distribution Width 13.7 11.0-15.5 % Platelet Count 202 130-400 K/uL Mean Platelet Volume 10.4 7.5-10.5 fL Nucleated Red Blood Cells 0.0 0.0-0.19 % Prothrombin Time 14.7 H 9.6-11.6 SEC Prothromb Time International Ratio 1.44 H 0.85-1.15 Sodium Level 137 136-145 mmol/L Potassium Level 4.0 3.5-5.1 mmol/L Chloride Level 101 101-111 mmol/L Carbon Dioxide Level 27 21-32 mmol/L Blood Urea Nitrogen 19 H 7-18 mg/dL Creatinine 0.7 0.5-1.0 mg/dL Glomerular Filtration Rate Calc 95 >90 mL/min Random Glucose 116 H 70-105 mg/dL Total Calcium 9.1 8.5-10.1 mg/dL Current Medications Medications (Trade) Dose Ordered Sig/Eliecer Route PRN Reason Start Time Stop Time Status Last Admin Dose Admin Acetaminophen (TYLenol 325MG TAB) 650 mg Q6H PRN PO MILD PAIN (1-3) 12/08/24 10:00 01/07/25 09:59 12/09/24 21:40 650 MG Budesonide (Pulmicort 0.5 Mg/2ml) 0.5 mg BIDRESP IH 12/08/24 18:00 12/10/24 17:23 DC 12/10/24 07:08 0.5 MG Ceftriaxone Sodium (ROCEphine 1G INJ) 1 gm Q24H IVPB 12/09/24 12:30 12/19/24 12:29 12/11/24 12:14 1 GM Famotidine (Pepcid 20mg Tab) 20 mg BID PO 12/08/24 21:00 01/07/25 20:59 12/12/24 09:13 20 MG Furosemide (LASix 40MG VIAL) 40 mg BID IV 12/08/24 21:00 01/07/25 20:59 12/12/24 09:12 40 MG Heparin Sodium/ Dextrose 250 ml @ 0 mls/hr PROTOCOL IV 12/08/24 15:00 01/07/25 14:59 12/11/24 16:50 5.95 MLS/HR Insulin Glargine (LANtus 100 UNITS/ML 10 ML VIAL) 15 units HS SQ 12/08/24 21:00 12/08/24 22:03 DC 12/08/24 20:29 15 UNITS Insulin Glargine (LANtus 100 UNITS/ML 10 ML VIAL) 25 units DAILY SQ 12/10/24 09:00 01/09/25 08:59 12/12/24 09:14 25 UNITS Insulin Glargine (LANtus 100 UNITS/ML 10 ML VIAL) 30 units DAILY SQ 12/09/24 09:00 12/10/24 07:22 DC 12/09/24 09:00 30 UNITS Insulin Human Regular (humuLIN R 100 UNIT/ML 3ML) 5 unit TIDAC SQ 12/08/24 17:00 12/08/24 22:03 DC 12/08/24 18:07 5 UNIT Insulin Human Regular (humuLIN R 100 UNIT/ML 3ML) 6 unit TIDAC SQ 12/10/24 07:30 01/09/25 07:29 12/11/24 16:49 6 UNIT Insulin Human Regular (humuLIN R 100 UNIT/ML 3ML) 12 unit TIDAC SQ 12/09/24 07:30 12/10/24 07:22 DC 12/09/24 11:30 12 UNIT Insulin Human Regular (humuLIN R 100 UNIT/ML 3ML) INSULIN SLIDING SCAL... ACHS SQ 12/08/24 11:30 01/07/25 11:29 12/11/24 20:20 10 UNIT Lisinopril (Prinivil 10mg) 10 mg HS PO 12/08/24 21:00 01/07/25 20:59 12/11/24 20:18 10 MG Magnesium Sulfate 50 ml @ 0 mls/hr PROTOCOL IV 12/08/24 10:00 01/07/25 09:59 12/08/24 22:40 25 MLS/HR Metoprolol Succinate (TopROL XL) 25 mg DAILY PO 12/09/24 09:00 01/08/25 08:59 12/12/24 09:13 25 MG Morphine Sulfate (morPHINE 4MG SYG) 2 mg Q4H PRN IVP SEVERE PAIN (7-10) 12/10/24 03:30 12/17/24 03:29 12/11/24 00:07 2 MG Ondansetron HCl (zoFRAN 4MG INJ) 4 mg Q6H PRN IVP NAUSEA/VOMITING 12/08/24 10:00 01/07/25 09:59 Potassium Chloride 100 ml @ 100 mls/hr AD PRN IV POTASSIUM PROTOCOL 12/08/24 10:00 01/07/25 09:59 Potassium Chloride (K-Dur/Klor-Con 20meq) 20 meq AD PRN PO POTASSIUM PROTOCOL 12/08/24 10:00 01/07/25 09:59 12/11/24 16:47 20 MEQ Potassium Chloride (KCl 10% Elixir 20meq/15ml) 20 meq AD PRN PO POTASSIUM PROTOCOL 12/08/24 10:00 01/07/25 09:59 12/09/24 13:32 20 MEQ Spironolactone (Aldactone 25mg) 25 mg DAILY PO 12/12/24 09:00 01/11/25 08:59 12/12/24 09:13 25 MG Warfarin Sodium (Coumadin) 3 mg WARF PO 12/08/24 17:00 12/10/24 18:04 DC 12/10/24 17:04 3 MG Warfarin Sodium (Coumadin) 4 mg WARF PO 12/11/24 17:00 12/11/24 12:32 DC Warfarin Sodium (Coumadin) 4 mg WARF PO 12/13/24 16:00 12/20/24 15:59 DIAGNOSTICS / RADIOLOGY: [ ] ASSESSMENT: Acute on chronic systolic and diastolic heart failure exacerbation with LVEF of 20-25 % from 2D echo in 2022, POA Cardiogenic edema with hypoxemic respiratory failure, POA Uncontrolled hyperglycemia, POA For outpatient cardiac follow up POA Coronary artery disease with remote coronary artery bypass grafting in 2004, POA Previous mechanical aortic valve placement in 2004, POA History of possible thrombus involving the left ventricular apex from 2D echocardiogram from , POA chronic anticoagulation with warfarin for mechanical valve, POA Hypertension, POA right upper lobe pulmonary nodule measuring 12 mm, POA Poorly controlled type 2 diabetes mellitus, POA Obesity, POA PLAN: Off antibiotics for signs of infection Trend WBCs O2 nasal cannula as needed Continue lisinopril, metoprolol Monitor blood pressure Follow up with Cardiology -obtain medical records -continue bridging to warfarin -continue IV diuresis Provide warfarin education Diabetic diet GI prophylaxis with famotidine Continue Lasix IV, monitor creatinine for worsening renal function No need for IV fluids Trend a.m. BMP Replete electrolytes as necessary DVT prophylaxis with heparin Trend a.m. CBC I re-educated on the need to bridge with heparin to warfarin Full code Case was discussed with patient's nurse at bedside Attention time greater than 30 minutes NILE GROSS IV, MD Dec 12, 2024 10:48
[2024-12-12] MEDS: WARFARIN SODIUM 5 MG TAB PO ONE (17:49)
--- NOTE | 2024-12-12 20:49 | HMCIMG ---
EXAM: CR Chest, single view CLINICAL HISTORY: Chest congestion COMPARISON: Prior chest radiograph dated December 09, 2024 FINDINGS: Poststernotomy status. Mild cardiomegaly with bilateral pulmonary congestion. Mild right-sided pleural effusion with subtle blunting of the right costophrenic angle. No evidence of pneumothorax. No acute osseous abnormality. IMPRESSION: Poststernotomy status. Mild cardiomegaly with bilateral pulmonary congestion. Mild right-sided pleural effusion with subtle blunting of the right costophrenic angle. No evidence of pneumothorax. Compared to the prior study, there is no significant interval change. /[place]
--- NOTE | 2024-12-12 21:09 | PN ---
Endocrinology progress note DOS: 12/12/24 subjective: Home diabetic regimen: she does not take any medications Hba1c 12.9% glucose are improving now. morning insulin was not given. REVIEW OF SYSTEMS CONSTITUTIONAL: Denies fevers, chills, or night sweats. No unintentional weight loss reported. NEUROLOGICAL: Denies headache, amaurosis fugax, motor weakness, sensory deficit, vertigo/spinning sensation, gait abnormalities, or tremors. ENT: No hearing loss, otalgia, otorrhea, rhinitis, rhinorrhea, hoarseness, or sore throat. CARDIOVASCULAR: Shortness of breath close improved PULMONARY: Denies any shortness of breath, cough, phlegm/sputum, hemoptysis, pleuritic chest pain. SLEEP: Denies morning headaches, daytime somnolence or napping. Denies difficulty falling asleep, staying asleep, waking from sleep. Denies knowledge of snoring. GASTROINTESTINAL: Denies any type of dysphagia to either liquids or solids. Denies nausea, vomiting, pyrosis, early satiety, abdominal pain, diarrhea, constipation, or changes in stool consistency or caliber. Denies coffee-ground emesis, hematemesis, hematochezia, or melanotic stools. GENITOURINARY: Denies frequency, urgency, nocturia, hematuria or incontinence (Storage/Irritative symptoms.) Low urinary stream, straining to void, urinary intermittency or hesitancy, splitting of the voiding stream, terminal dribbling. ENDOCRINOLOGIC: Denies polyuria, polydipsia, polyphagia or heat/cold intolerances. HEMATOLOGIC: Denies thrombophilia/previous clots, or coagulopathy/bleeding disorders. ONCOLOGIC: Denies personal history of malignancy. DERMATOLOGIC: Denies rashes or pruritus. PSYCHIATRIC: Denies any suicidal or homicidal ideation. Denies hallucinations. 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 CLINICAL HISTORY: Shortness of breath COMPARISON: Prior chest radiograph dated October 15, 2022 FINDINGS: Poststernotomy status. Moderate cardiomegaly with bilateral hilar congestion. Patchy, ill-defined infiltrates in the bilateral lower lobes and subtle blunting of the bilateral costophrenic angle are probably a minimal bilateral pleural effusion. No evidence of pneumothorax. Stable 12 mm nodular density in the right upper zone. No acute osseous abnormality. Mild degenerative changes in the mid and lower thoracic spine. IMPRESSION: Poststernotomy status. Moderate cardiomegaly with bilateral hilar congestion. Patchy, ill-defined infiltrates in the bilateral lower lobes and subtle blunting of the bilateral costophrenic angle are probably a minimal bilateral pleural effusion. No evidence of pneumothorax. Stable 12 mm nodular density in the right upper zone. Compared to the prior study, there is a mild decrease in the right-sided pleural effusion and interval development of right lower lobe infiltrates. /[place] DICTATED BY: KENNY VALDERRAMA Jr., MD DATE: 12/08/24840 ELECTRONICALLY SIGNED BY: KENNY VALDERRAMA Jr., MD DATE: 12/08/24840 ASSESSMENT: Uncontrolled hyperglycemia, POA Home diabetic regimen: she does not take any medications Hba1c 12.9% glucose are improving and insulin adjusted. Acute on chronic systolic and diastolic heart failure exacerbation with LVEF of 20-25 % from 2D echo in 2022, POA Cardiogenic edema with hypoxemic respiratory failure, POA For outpatient cardiac follow up POA History of coronary artery bypass grafting in 2004, POA History of mechanical aortic valve placement in 2004, POA History of possible thrombus involving the left ventricular apex from 2D echocardiogram from , POA History of chronic anticoagulation with warfarin for mechanical valve, POA Hypertension, POA History of right upper lobe pulmonary nodule measuring 12 mm, POA Poorly controlled type 2 diabetes mellitus, POA Obesity, POA PLAN: continue Lantus 25 units daily increase Regular insulin to 10 units three times before meals and adjust for post-prandial glucose. Continue high dose sliding scale insulin. Monitor glucose q x 6 hourly. Continue carb consistent diet. Keep glucose less than 180 mg/dl. Vitals/Labs Vital Signs Date Time Temp Pulse Resp B/P (MAP) Pulse Ox O2 Delivery O2 Flow Rate FiO2 12/12/24 20:17 98.2 69 18 115/59 98 Room Air 12/12/24 08:00 0 21 Laboratory Tests 12/12/24 04:36 Medications Current Medications Sodium Chloride 1,000 ml @ 0 mls/hr ONCE ONCE IV Last administered on 12/08/24at 08:13; Start 12/08/24 at 08:00; Stop 12/08/24 at 09:33; Status DC Insulin Human Regular 10 unit ONCE ONCE IV; Start 12/08/24 at 08:00; Stop 12/08/24 at 07:44; Status DC Insulin Human Regular 5 unit ONCE ONCE SQ Last administered on 12/08/24at 08:07; Start 12/08/24 at 08:00; Stop 12/08/24 at 08:01; Status DC Furosemide 40 mg ONCE ONCE IV Last administered on 12/08/24at 11:35; Start 12/08/24 at 10:00; Stop 12/08/24 at 10:01; Status DC Budesonide 0.5 mg BIDRESP IH Last administered on 12/10/24at 07:08; Start 12/08/24 at 18:00; Stop 12/10/24 at 17:23; Status DC Potassium Chloride 100 ml @ 100 mls/hr AD PRN IV; Start 12/08/24 at 10:00; Stop 01/07/25 at 09:59 Potassium Chloride 20 meq AD PRN PO Last administered on 12/09/24at 13:32; Start 12/08/24 at 10:00; Stop 01/07/25 at 09:59 Potassium Chloride 20 meq AD PRN PO Last administered on 12/11/24at 16:47; Start 12/08/24 at 10:00; Stop 01/07/25 at 09:59 Magnesium Sulfate 50 ml @ 0 mls/hr PROTOCOL IV Last administered on 12/08/24 22:40; Start 12/08/24 at 10:00; Stop 01/07/25 at 09:59 Acetaminophen 650 mg Q6H PRN PO Last administered on 12/09/24at 21:40; Start 12/08/24 at 10:00; Stop 01/07/25 at 09:59 Ondansetron HCl 4 mg Q6H PRN IVP; Start 12/08/24 at 10:00; Stop 01/07/25 at 09:59 Insulin Human Regular INSULIN SLIDING SCAL... ACHS SQ Last administered on 12/12/24at 17:56; Start 12/08/24 at 11:30; Stop 01/07/25 at 11:29 Furosemide 40 mg BID IV Last administered on 12/12/24at 09:12; Start 12/08/24 at 21:00; Stop 01/07/25 at 20:59 Famotidine 20 mg BID PO Last administered on 12/12/24 09:13; Start 12/08/24 at 21:00; Stop 01/07/25 at 20:59 Lisinopril 10 mg HS PO Last administered on 12/11/24at 20:18; Start 12/08/24 at 21:00; Stop 01/07/25 at 20:59 Warfarin Sodium 3 mg WARF PO Last administered on 12/10/24at 17:04; Start 12/08/24 at 17:00; Stop 12/10/24 at 18:04; Status DC Insulin Glargine 15 units HS SQ Last administered on 12/08/24 20:29; Start 12/08/24 at 21:00; Stop 12/08/24 at 22:03; Status DC Insulin Human Regular 5 unit TIDAC SQ Last administered on 12/08/24at 18:07; Start 12/08/24 at 17:00; Stop 12/08/24 at 22:03; Status DC Metoprolol Succinate 25 mg DAILY PO Last administered on 12/12/24at 09:13; Start 12/09/24 at 09:00; Stop 01/08/25 at 08:59 Heparin Sodium/ Dextrose 250 ml @ 0 mls/hr PROTOCOL IV Last administered on 12/11/24at 16:50; Start 12/08/24 at 15:00; Stop 01/07/25 at 14:59 Insulin Glargine 30 units DAILY SQ Last administered on 12/09/24at 09:00; Start 12/09/24 at 09:00; Stop 12/10/24 at 07:22; Status DC Insulin Human Regular 12 unit TIDAC SQ Last administered on 12/09/24at 11:30; Start 12/09/24 at 07:30; Stop 12/10/24 at 07:22; Status DC Cyclobenzaprine HCl 5 mg ONCE ONCE PO Last administered on 12/08/24at 23:24; Start 12/08/24 at 23:30; Stop 12/08/24 at 23:31; Status DC Heparin Sodium (Porcine) 5,000 unit STK-MED ONCE .ROUTE Last administered on 12/09/24at 11:44; Start 12/09/24 at 11:44; Stop 12/09/24 at 11:44; Status DC Ceftriaxone Sodium 1 gm Q24H IVPB Last administered on 12/12/24at 12:43; Start 12/09/24 at 12:30; Stop 12/19/24 at 12:29 Morphine Sulfate 2 mg Q4H PRN IVP Last administered on 12/11/24at 00:07; Start 12/10/24 at 03:30; Stop 12/17/24 at 03:29 Insulin Glargine 25 units DAILY SQ Last administered on 12/12/24at 09:14; Start 12/10/24 at 09:00; Stop 01/09/25 at 08:59 Insulin Human Regular 6 unit TIDAC SQ Last administered on 12/11/24at 16:49; Start 12/10/24 at 07:30; Stop 12/12/24 at 11:54; Status DC Warfarin Sodium 4 mg WARF PO; Start 12/11/24 at 17:00; Stop 12/11/24 at 12:32; Status DC Warfarin Sodium 1 mg ONCE ONCE PO Last administered on 12/10/24at 18:19; Start 12/10/24 at 18:30; Stop 12/10/24 at 18:31; Status DC Insulin Human Regular 6 unit ONCE ONCE SQ Last administered on 12/11/24at 08:16; Start 12/11/24 at 08:30; Stop 12/11/24 at 08:31; Status DC Warfarin Sodium 4 mg WARF PO; Start 12/13/24 at 16:00; Stop 12/20/24 at 15:59 Warfarin Sodium 5 mg ONCE ONCE PO Last administered on 12/11/24at 16:48; Start 12/11/24 at 17:00; Stop 12/11/24 at 17:01; Status DC Warfarin Sodium 5 mg ONCE ONCE PO Last administered on 12/12/24at 17:49; Start 12/12/24 at 16:00; Stop 12/12/24 at 16:01; Status DC Spironolactone 25 mg DAILY PO Last administered on 12/12/24at 09:13; Start 12/12/24 at 09:00; Stop 01/11/25 at 08:59 Insulin Human Regular 8 unit TIDAC SQ Last administered on 12/12/24at 17:52; Start 12/12/24 at 17:00; Stop 01/11/25 at 16:59 MARYBEL MARINELLI MD Dec 12, 2024 21:09
[2024-12-13] VITALS (9 sets, daily range): BP systolic 94–120; BP diastolic 49–62; PULSE 46–78; RESP 16–18; TEMP 97.8–98.3; O2SAT 97–98
[2024-12-13 06:02] LABS: NUCLEATED RED BLOOD CELLS 0.0 % (0.0-0.19); PLATELET COUNT (AUTO) 202.0 K/uL (130-400); RED BLOOD CELL COUNT(AUTO) 4.45 MIL/uL (4.00-5.50); RED CELL DISTRIBUTION WIDTH 13.6 % (11.0-15.5); WHITE BLOOD COUNT (AUTO) 6.9 K/uL (4.8-10.8)
[2024-12-13 06:13] LABS: INR 1.83 (0.85-1.15)
[2024-12-13 06:19] LABS: CREATININE 0.8 mg/dL (0.5-1.0); GLOMERULAR FILTR. RATE CALC 81.0 mL/min (>90); GLUCOSE,RANDOM 197.0 mg/dL (70-105); SODIUM SERUM 136.0 mmol/L (136-145); UREA NITROGEN, BLOOD 24.0 mg/dL (7-18)
--- NOTE | 2024-12-13 12:42 | PN ---
[facility] CARDIOLOGY PROGRESS NOTE Date Patient Seen: Dec 13, 2024 Time of Visit: 12:31 Interval History: [No acute events overnight. The patient is ambulating, tolerating well, mild exertional dyspnea, with no chest pain or palpitations. Overnight urine output 700 mL Physical Examination: GENERAL: No acute distress. HEAD: Normal with no signs of head trauma. EYES: Conjunctiva and sclera normal. ENT: Hearing grossly intact, normal oropharynx. NECK: Supple without JVD. There is no tenderness, lymphadenopathy, or masses. No thyromegaly. Normal carotid upstrokes without bruits. LUNGS: Clear breath sounds bilaterally. No wheezes, or rhonchi. HEART: Normal rate and rhythm. Systolic ejection murmur ABD: Bowel sounds normal, soft, nontender, no masses, no organomegaly. No audible bruits. : Not examined LYMPH: No lymphadenopathy noted. EXT: RLE with trace edema. SKIN: RLE with dark discoloration. NEURO: Awake, alert, and oriented x3. No focal sensory or strength deficits noted. Laboratory: [ ] Hematology Labs: Test 12/13/24 05:54 Range/Units White Blood Count 6.9 4.8-10.8 K/uL Red Blood Count 4.45 4.00-5.50 MIL/uL Hemoglobin 13.6 12.0-16.0 g/dL Hematocrit 40.5 36-48 % Mean Corpuscular Volume 91.0 79-99 fL Mean Corpuscular Hemoglobin 30.6 27.0-33.0 pg Mean Corpuscular Hemoglobin Concent 33.6 32.0-36.0 g/dL Red Cell Distribution Width 13.6 11.0-15.5 % Platelet Count 202 130-400 K/uL Mean Platelet Volume 10.5 7.5-10.5 fL Nucleated Red Blood Cells 0.0 0.0-0.19 % Chemistry Labs: Test 12/13/24 12:01 12/13/24 05:54 Range/Units Whole Blood Glucose 259 H 70-110 MG/DL Sodium Level 136 136-145 mmol/L Potassium Level 4.1 3.5-5.1 mmol/L Chloride Level 100 L 101-111 mmol/L Carbon Dioxide Level 27 21-32 mmol/L Blood Urea Nitrogen 24 H 7-18 mg/dL Creatinine 0.8 0.5-1.0 mg/dL Glomerular Filtration Rate Calc 81 >90 mL/min Random Glucose 197 H 70-105 mg/dL Total Calcium 8.9 8.5-10.1 mg/dL Coagulation Labs: Test 12/13/24 05:54 Range/Units Prothrombin Time 18.3 H 9.6-11.6 SEC Prothromb Time International Ratio 1.83 H 0.85-1.15 Activated Partial Thromboplast Time 74.6 H 26.3-35.5 SEC Diagnostics / Radiology: [Copy/Paste Echos/Imaging Report here] Impression and Plan: CAD s/p CABG with mechanical AVR Chronic anticoagulation with warfarin, Subtherapeutic INR Acute on chronic combined systolic and diastolic heart failure LVEF of 20-25%, stage II diastolic dysfunction, and possible thrombus in the LV apex via 2D echo on 10/16/2022 Hypokalemia Lexiscan stress test on 10/16/2022 with fixed defect in the inferior, anteroseptal, and inferolateral bermudez consistent with scar, LVEF of 37%, with normal TID Hypertension Hyperlipidemia Uncontrolled diabetes mellitus type , A1c 12.9% Morbid obesity Noncompliance #Advanced systolic and diastolic HFrEF ICM - LVEF 15-20% - NYHA II , Stage D Compensated on exam Patient tolerate ambulation, currently denies any cardiac symptoms or anginal equivalents CAD s/p CABG ( unknown anatomy ) Strict Is and Os with daily weights . Overnight urine output 700 ml . IV Lasix, and transitioned to Bumex p.o. 1 mg daily Optimize GDMT :Toprol XL 25 mg daily and Lisinopril 10 mg daily , Aldactone 25 mg daily We will plan for further optimization of the patient's GDMT in clinic Once the patient has completed six months of GDMT we will consider AICD #Severe aortic stenosis s/p mechanical AVR The patient states that her symptoms of shortness of breath has improved Coumadin 5 mg every 24 hrs PO . Current INR 1.83. Goal INR is 2.0-3.0 Repletion of potassium to goal >/= 4.0, magnesium >/= 2.0 Thank you for this consult , cardiology will sign off at this time the patient will follow up in clinic 1-2 weeks after discharge Mike Majano MD ATTESTATION BY PHYSICIAN I have seen and examined the patient, reviewed the above documentation, par ticipated in medical decision making, made necessary modifications, and agree with the treatment plan as documented by my mid-level provider above. MD COLTON Kelly JAMES R MD Dec 13, 2024 12:42
[2024-12-13] MEDS: WARFARIN SODIUM 2 MG TAB PO SCH (15:56)
--- NOTE | 2024-12-13 16:20 | NUR ---
COUMADIN PATIENT WAS WANTING TO LEAVE AMA THEREFORE CALLED TO CLARIFY. PER , INCREASE COUMADIN TO 6MG. PATIENT REFUSED TO TAKE THE 6MG AND AGREED TO ONLY TAKE 4MG TODAY. WOULD LIKE TO TALK TO DR. SEGURA TOMORROW MORNING. DR. SEGURA MADE AWARE VIA TEXT. EDUCATED PATIENT ON THE INR GOAL OF 2-3 AND CURRENTLY IS AT 1.8 THEREFORE WE HAVE TO FOLLOW THE MANAGEMENT INSTRUCTOR RECOMMENDATIONS. SHE STILL REFUSED.
--- NOTE | 2024-12-13 16:29 | PN ---
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 last night. Patient states that she woke up feeling short of breath with dizziness and she felt like she may have dose sugar. Patient does not have a home glucometer but she states that due to her symptoms, she put some sugar in a glass of water and drank it to see if it relieves her symptoms. She continues to have symptoms of shortness of breath and generalized uneasiness and she drank some coffee to see if symptoms improve. Patient's symptoms do not improve prompting her to come to the ER for further evaluation. Patient denies any previous history of stroke or seizures. She has not been able to follow up with Cardiology as outpatient june and she has signifi cant cardiac history including history of severe ischemic cardiomyopathy with LVEF of 20-25% from 2D echocardiogram from 2022, she has a history of mechanical aortic valve and coronary artery bypass grafting in 2004. She reports taking Coumadin 2 mg daily. She will is followed by PCP with regards to management of Coumadin. She denies any fevers, chills, or productive cough. She denies noticing significant swelling of the lower extremity or weight gain. She denies any pleurisy. On presentation to the hospital, patient was noted to be afebrile with T-max of 98.2 F, heart rate of 108, blood pressure of 138/76. Patient was saturating 90% on room air. Labs on presentation showed WBC count of 9100, hemoglobin of 14.4, platelet count of [id number]. BMP showed sodium of 138, potassium 3.8, chloride of 103, CO2 of 26, BUN of six, creatinine of 0.7, blood glucose of 405, BNP close to 1000, cardiac troponin showed high sensitivity troponin of 48. Chest x-ray showed cardiomegaly with bilateral hilar congestion and ill-defined infiltrates of the bilateral lobes with minimal pleural effusion. Patient was also noted to have 12 mm nodular density in the right upper lobe. Patient will be admitted for further treatment and management of acute on chronic systolic and diastolic heart failure exacerbation in the setting of known history of advanced cardiomyopathy. Blood sugars are uncontrolled, p atient will be sliding on basal Lantus for further management. We will see how patient progresses in the next 2-3 days and we will obtain further cardiac workup and consultation with Cardiology will be requested this admission. 12/09 patient's shortness of breath has improved. Undergoing bridging to warfarin with heparin also undergoing IV diuresis 12/10 IV diuresis. Patient is refusing warfarin as she feels she is getting enough blood thinners. We will educate regarding the need for warfarin bridging with heparin 12/11 patient is resting comfortably in bed. No new complaints or concerns. She continues on warfarin and heparin for bridging. INR is 1.3. Family reports patient has lapses in medication due to for access to warfarin. They are requesting to change pharmacy. Nurse updated pharmacy as per patient and family request. 12/12 INR is 1.44. No new complaints or concerns no acute events reported overnight. 12/13 patient was seen by [employer] and physician during rounding in room 230. INR today is 1.83. (goal 2 to 3). Patient continues to be on heparin drip and Coumadin. Nurse practitioner was able to discuss the case with Dr. Mike Majano regarding possible LifeVest. No need at this moment. We will continue to monitor patient in the meantime. Regards urine positive for E coli patient can be discharged on levofloxacin p.o. home. Anticipated discharge within 24 hours. A.m. labs. REVIEW OF SYSTEMS CONSTITUTIONAL: Denies fevers, chills, or night sweats. No unintentional weight loss reported. NEUROLOGICAL: Denies headache, amaurosis fugax, motor weakness, sensory deficit, vertigo/spinning sensation, gait abnormalities, or tremors. ENT: No hearing loss, otalgia, otorrhea, rhinitis, rhinorrhea, hoarseness, or sore throat. CARDIOVASCULAR: Denies any shortness of breaths PULMONARY: Denies any shortness of breath, cough, phlegm/sputum, hemoptysis, pleuritic chest pain. SLEEP: Denies morning headaches, daytime somnolence or napping. Denies difficulty falling asleep, staying asleep, waking from sleep. Denies knowledge of snoring. GASTROINTESTINAL: Denies any type of dysphagia to either liquids or solids. Denies nausea, vomiting, pyrosis, early satiety, abdominal pain, diarrhea, constipation, or changes in stool consistency or caliber. Denies coffee-ground emesis, hematemesis, hematochezia, or melanotic stools. GENITOURINARY: Denies frequency, urgency, nocturia, hematuria or incontinence (Storage/Irritative symptoms.) Low urinary stream, straining to void, urinary intermittency or hesitancy, splitting of the voiding stream, terminal dribbling. ENDOCRINOLOGIC: Denies polyuria, polydipsia, polyphagia or heat/cold intolerances. HEMATOLOGIC: Denies thrombophilia/previous clots, or coagulopathy/bleeding disorders. ONCOLOGIC: Denies personal history of malignancy. DERMATOLOGIC: Denies rashes or pruritus. PSYCHIATRIC: Denies any suicidal or homicidal ideation. Denies hallucinations. PHYSICAL EXAM GENERAL APPEARANCE: The patient is awake, alert, and oriented, in no acute cardiopulmonary distress. Patient is sitting up in the bed, she is obese NEUROLOGICAL: Cranial nerves II-XII grossly intact. Motor is 5/5 in bilateral upper and lower extremities proximal to distal. No sensory deficits. HEENT: Face is symmetric. Pupils are equal and reactive. Extraocular movements are intact. NECK: Supple. No JVD. No thyromegaly. No submental, submandibular, pre- /postauricular, occipital or supraclavicular lymphadenopathy. CHEST: Normal chest expansion. No Telemetry. LUNGS: Crackles noted of bilateral lung bases improved CARDIOVASCULAR: Regular. Mechanical click auscultated. No appreciable rubs, murmurs or gallops. ABDOMEN: Soft, nontender, and nondistended. There is no rebound, voluntary guarding, or rigidity. : Deferred. No Salguero. EXTREMITIES: Trace edema of the lower extremities. No clubbing. Good capill thomas refill. SKIN: No skin breakdown. Vital Signs (last 8hr) Date Time Temp Pulse Resp B/P (MAP) Pulse Ox O2 Delivery O2 Flow Rate FiO2 12/13/24 16:21 97.9 78 16 110/58 96 Room Air 12/13/24 11:36 98.2 63 16 120/56 98 Room Air LABS: Laboratory: Test 12/13/24 13:21 12/13/24 12:01 12/13/24 05:54 Range/Units Activated Partial Thromboplast Time 48.9 #H 26.3-35.5 SEC Whole Blood Glucose 259 H 70-110 MG/DL White Blood Count 6.9 4.8-10.8 K/uL Red Blood Count 4.45 4.00-5.50 MIL/uL Hemoglobin 13.6 12.0-16.0 g/dL Hematocrit 40.5 36-48 % Mean Corpuscular Volume 91.0 79-99 fL Mean Corpuscular Hemoglobin 30.6 27.0-33.0 pg Mean Corpuscular Hemoglobin Concent 33.6 32.0-36.0 g/dL Red Cell Distribution Width 13.6 11.0-15.5 % Platelet Count 202 130-400 K/uL Mean Platelet Volume 10.5 7.5-10.5 fL Nucleated Red Blood Cells 0.0 0.0-0.19 % Prothrombin Time 18.3 H 9.6-11.6 SEC Prothromb Time International Ratio 1.83 H 0.85-1.15 Sodium Level 136 136-145 mmol/L Potassium Level 4.1 3.5-5.1 mmol/L Chloride Level 100 L 101-111 mmol/L Carbon Dioxide Level 27 21-32 mmol/L Blood Urea Nitrogen 24 H 7-18 mg/dL Creatinine 0.8 0.5-1.0 mg/dL Glomerular Filtration Rate Calc 81 >90 mL/min Random Glucose 197 H 70-105 mg/dL Total Calcium 8.9 8.5-10.1 mg/dL Current Medications Medications (Trade) Dose Ordered Sig/Eliecer Route PRN Reason Start Time Stop Time Status Last Admin Dose Admin Acetaminophen (TYLenol 325MG TAB) 650 mg Q6H PRN PO MILD PAIN (1-3) 12/08/24 10:00 01/07/25 09:59 12/09/24 21:40 650 MG Budesonide (Pulmicort 0.5 Mg/2ml) 0.5 mg BIDRESP IH 12/08/24 18:00 12/10/24 17:23 DC 12/10/24 07:08 0.5 MG Ceftriaxone Sodium (ROCEphine 1G INJ) 1 gm Q24H IVPB 12/09/24 12:30 12/19/24 12:29 12/13/24 13:07 1 GM Famotidine (Pepcid 20mg Tab) 20 mg BID PO 12/08/24 21:00 01/07/25 20:59 12/13/24 08:35 20 MG Furosemide (LASix 40MG VIAL) 40 mg BID IV 12/08/24 21:00 01/07/25 20:59 12/13/24 08:35 40 MG Heparin Sodium/ Dextrose 250 ml @ 0 mls/hr PROTOCOL IV 12/08/24 15:00 01/07/25 14:59 12/13/24 16:02 5.96 MLS/HR Insulin Glargine (LANtus 100 UNITS/ML 10 ML VIAL) 15 units HS SQ 12/08/24 21:00 12/08/24 22:03 DC 12/08/24 20:29 15 UNITS Insulin Glargine (LANtus 100 UNITS/ML 10 ML VIAL) 25 units DAILY SQ 12/10/24 09:00 01/09/25 08:59 12/13/24 13:10 25 UNITS Insulin Glargine (LANtus 100 UNITS/ML 10 ML VIAL) 30 units DAILY SQ 12/09/24 09:00 12/10/24 07:22 DC 12/09/24 09:00 30 UNITS Insulin Human Regular (humuLIN R 100 UNIT/ML 3ML) 5 unit TIDAC SQ 12/08/24 17:00 12/08/24 22:03 DC 12/08/24 18:07 5 UNIT Insulin Human Regular (humuLIN R 100 UNIT/ML 3ML) 6 unit TIDAC SQ 12/10/24 07:30 12/12/24 11:54 DC 12/11/24 16:49 6 UNIT Insulin Human Regular (humuLIN R 100 UNIT/ML 3ML) 8 unit TIDAC SQ 12/12/24 17:00 01/11/25 16:59 12/13/24 13:08 8 UNIT Insulin Human Regular (humuLIN R 100 UNIT/ML 3ML) 12 unit TIDAC SQ 12/09/24 07:30 12/10/24 07:22 DC 12/09/24 11:30 12 UNIT Insulin Human Regular (humuLIN R 100 UNIT/ML 3ML) INSULIN SLIDING SCAL... ACHS SQ 12/08/24 11:30 11/8/25 11:29 12/13/24 13:09 10 UNIT Lisinopril (Prinivil 10mg) 10 mg HS PO 12/08/24 21:00 01/07/25 20:59 12/12/24 21:12 10 MG Magnesium Sulfate 50 ml @ 0 mls/hr PROTOCOL IV 12/08/24 10:00 01/07/25 09:59 12/08/24 22:40 25 MLS/HR Metoprolol Succinate (TopROL XL) 25 mg DAILY PO 12/09/24 09:00 01/08/25 08:59 12/13/24 08:35 25 MG Morphine Sulfate (morPHINE 4MG SYG) 2 mg Q4H PRN IVP SEVERE PAIN (7-10) 12/10/24 03:30 12/17/24 03:29 12/11/24 00:07 2 MG Ondansetron HCl (zoFRAN 4MG INJ) 4 mg Q6H PRN IVP NAUSEA/VOMITING 12/08/24 10:00 01/07/25 09:59 Potassium Chloride 100 ml @ 100 mls/hr AD PRN IV POTASSIUM PROTOCOL 12/08/24 10:00 01/07/25 09:59 Potassium Chloride (K-Dur/Klor-Con 20meq) 20 meq AD PRN PO POTASSIUM PROTOCOL 12/08/24 10:00 01/07/25 09:59 12/11/24 16:47 20 MEQ Potassium Chloride (KCl 10% Elixir 20meq/15ml) 20 meq AD PRN PO POTASSIUM PROTOCOL 12/08/24 10:00 01/07/25 09:59 12/09/24 13:32 20 MEQ Spironolactone (Aldactone 25mg) 25 mg DAILY PO 12/12/24 09:00 01/11/25 08:59 12/13/24 08:35 25 MG Warfarin Sodium (Coumadin) 3 mg WARF PO 12/08/24 17:00 12/10/24 18:04 DC 12/10/24 17:04 3 MG Warfarin Sodium (Coumadin) 4 mg WARF PO 12/11/24 17:00 12/11/24 12:32 DC Warfarin Sodium (Coumadin) 4 mg WARF PO 12/13/24 16:00 12/20/24 15:59 12/13/24 15:56 4 MG DIAGNOSTICS / RADIOLOGY: [ ] ASSESSMENT: Acute on chronic systolic and diastolic heart failure exacerbation with LVEF of 20-25 % from 2D echo in 2022, POA Cardiogenic edema with hypoxemic respiratory failure, POA Uncontrolled hyperglycemia, POA For outpatient cardiac follow up POA Acute complicated cystitis POA Urine culture positive for E coli Coronary artery disease with remote coronary artery bypass grafting in 2004, POA Previous mechanical aortic valve placement in 2004, POA History of possible thrombus involving the left ventricular apex from 2D echocardiogram from , POA chronic anticoagulation with warfarin for mechanical valve, POA Hypertension, POA right upper lobe pulmonary nodule measuring 12 mm, POA Poorly controlled type 2 diabetes mellitus, POA Obesity, POA PLAN: INR today is 1.83. (goal 2 to 3). Patient continues to be on heparin drip and Coumadin. Nurse practitioner was able to discuss the case with Dr. Mike Majano regarding possible LifeVest. No need at this moment. We will continue to monitor patient in the meantime. Regards urine positive for E coli patient can be discharged on levofloxacin p.o. home. Anticipated discharge within 24 hours. A.m. labs. Off antibiotics for signs of infection Trend WBCs O2 nasal cannula as needed Continue lisinopril, metoprolol Monitor blood pressure Follow up with Cardiology -continue bridging to warfarin -continue IV diuresis Diabetic diet GI prophylaxis with famotidine Continue Lasix IV, monitor creatinine for worsening renal function No need for IV fluids Replete electrolytes as necessary DVT prophylaxis with heparin Trend a.m. CBC Full code Case was discussed with patient's nurse at bedside Attention time greater than 30 minutes ATTESTATION BY PHYSICIAN I have seen and examined the patient. I reviewed the documentation, medical decision making, and treatment plan as noted by the mid-level provider above. I agree with the findings and plan of care. Becky Shell MD, [facility] ADMIN ASST Dec 13, 2024 16:29
[2024-12-13] MEDS: MAGNESIUM CITRATE 296 ML SOLUTION PO ONE (17:11)
[2024-12-13 19:58] LABS: INR 1.9 (0.85-1.15)
--- NOTE | 2024-12-13 20:15 | PN ---
Endocrinology progress note DOS: 12/13/24 subjective: Home diabetic regimen: she does not take any medications Hba1c 12.9% glucose are improving now but still elevated. REVIEW OF SYSTEMS CONSTITUTIONAL: Denies fevers, chills, or night sweats. No unintentional weight loss reported. NEUROLOGICAL: Denies headache, amaurosis fugax, motor weakness, sensory deficit, vertigo/spinning sensation, gait abnormalities, or tremors. ENT: No hearing loss, otalgia, otorrhea, rhinitis, rhinorrhea, hoarseness, or sore throat. CARDIOVASCULAR: Shortness of breath close improved PULMONARY: Denies any shortness of breath, cough, phlegm/sputum, hemoptysis, pleuritic chest pain. SLEEP: Denies morning headaches, daytime somnolence or napping. Denies difficulty falling asleep, staying asleep, waking from sleep. Denies knowledge of snoring. GASTROINTESTINAL: Denies any type of dysphagia to either liquids or solids. Denies nausea, vomiting, pyrosis, early satiety, abdominal pain, diarrhea, constipation, or changes in stool consistency or caliber. Denies coffee-ground emesis, hematemesis, hematochezia, or melanotic stools. GENITOURINARY: Denies frequency, urgency, nocturia, hematuria or incontinence (Storage/Irritative symptoms.) Low urinary stream, straining to void, urinary intermittency or hesitancy, splitting of the voiding stream, terminal dribbling. ENDOCRINOLOGIC: Denies polyuria, polydipsia, polyphagia or heat/cold intolerances. HEMATOLOGIC: Denies thrombophilia/previous clots, or coagulopathy/bleeding disorders. ONCOLOGIC: Denies personal history of malignancy. DERMATOLOGIC: Denies rashes or pruritus. PSYCHIATRIC: Denies any suicidal or homicidal ideation. Denies hallucinations. 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 CLINICAL HISTORY: Shortness of breath COMPARISON: Prior chest radiograph dated October 15, 2022 FINDINGS: Poststernotomy status. Moderate cardiomegaly with bilateral hilar congestion. Patchy, ill-defined infiltrates in the bilateral lower lobes and subtle blunting of the bilateral costophrenic angle are probably a minimal bilateral pleural effusion. No evidence of pneumothorax. Stable 12 mm nodular density in the right upper zone. No acute osseous abnormality. Mild degenerative changes in the mid and lower thoracic spine. IMPRESSION: Poststernotomy status. Moderate cardiomegaly with bilateral hilar congestion. Patchy, ill-defined infiltrates in the bilateral lower lobes and subtle blunting of the bilateral costophrenic angle are probably a minimal bilateral pleural effusion. No evidence of pneumothorax. Stable 12 mm nodular density in the right upper zone. Compared to the prior study, there is a mild decrease in the right-sided pleural effusion and interval development of right lower lobe infiltrates. /[place] DICTATED BY: KENNY VALDERRAMA Jr., MD DATE: 12/08/24840 ELECTRONICALLY SIGNED BY: KENNY VALDERRAMA Jr., MD DATE: 12/08/24840 ASSESSMENT: Uncontrolled hyperglycemia, POA Home diabetic regimen: she does not take any medications Hba1c 12.9% glucose are elevated and insulin adjusted. Acute on chronic systolic and diastolic heart failure exacerbation with LVEF of 20-25 % from 2D echo in 2022, POA Cardiogenic edema with hypoxemic respiratory failure, POA For outpatient cardiac follow up POA History of coronary artery bypass grafting in 2004, POA History of mechanical aortic valve placement in 2004, POA History of possible thrombus involving the left ventricular apex from 2D echocardiogram from , POA History of chronic anticoagulation with warfarin for mechanical valve, POA Hypertension, POA History of right upper lobe pulmonary nodule measuring 12 mm, POA Poorly controlled type 2 diabetes mellitus, POA Obesity, POA PLAN: continue Lantus 25 units daily increase Regular insulin to 10 units three times before meals and adjust for post-prandial glucose. Continue high dose sliding scale insulin. Monitor glucose q x 6 hourly. Continue carb consistent diet. Keep glucose less than 180 mg/dl. Vitals/Labs Vital Signs Date Time Temp Pulse Resp B/P (MAP) Pulse Ox O2 Delivery O2 Flow Rate FiO2 12/13/24 19:54 98.1 70 18 116/62 100 Room Air 12/12/24 20:00 0 21 Laboratory Tests 12/13/24 05:54 Medications Current Medications Sodium Chloride 1,000 ml @ 0 mls/hr ONCE ONCE IV Last administered on 12/08/24at 08:13; Start 12/08/24 at 08:00; Stop 12/08/24 at 09:33; Status DC Insulin Human Regular 10 unit ONCE ONCE IV; Start 12/08/24 at 08:00; Stop 12/08/24 at 07:44; Status DC Insulin Human Regular 5 unit ONCE ONCE SQ Last administered on 12/08/24at 08:07; Start 12/08/24 at 08:00; Stop 12/08/24 at 08:01; Status DC Furosemide 40 mg ONCE ONCE IV Last administered on 12/08/24at 11:35; Start 12/08/24 at 10:00; Stop 12/08/24 at 10:01; Status DC Budesonide 0.5 mg BIDRESP IH Last administered on 12/10/24at 07:08; Start 12/08/24 at 18:00; Stop 12/10/24 at 17:23; Status DC Potassium Chloride 100 ml @ 100 mls/hr AD PRN IV; Start 12/08/24 at 10:00; Stop 01/07/25 at 09:59 Potassium Chloride 20 meq AD PRN PO Last administered on 12/09/24at 13:32; Start 12/08/24 at 10:00; Stop 01/07/25 at 09:59 Potassium Chloride 20 meq AD PRN PO Last administered on 12/11/24at 16:47; Start 12/08/24 at 10:00; Stop 01/07/25 at 09:59 Magnesium Sulfate 50 ml @ 0 mls/hr PROTOCOL IV Last administered on 12/08/24at 22:40; Start 12/08/24 at 10:00; Stop 01/07/25 at 09:59 Acetaminophen 650 mg Q6H PRN PO Last administered on 12/09/24at 21:40; Start 12/08/24 at 10:00; Stop 01/07/25 at 09:59 Ondansetron HCl 4 mg Q6H PRN IVP; Start 12/08/24 at 10:00; Stop 01/07/25 at 09:59 Insulin Human Regular INSULIN SLIDING SCAL... ACHS SQ Last administered on 12/13/24at 17:46; Start 12/08/24 at 11:30; Stop 01/07/25 at 11:29 Furosemide 40 mg BID IV Last administered on 12/13/24at 08:35; Start 12/08/24 at 21:00; Stop 12/13/24 at 17:08; Status DC Famotidine 20 mg BID PO Last administered on 12/13/24at 08:35; Start 12/08/24 at 21:00; Stop 01/07/25 at 20:59 Lisinopril 10 mg HS PO Last administered on 12/12/24at 21:12; Start 12/08/24 at 21:00; Stop 01/07/25 at 20:59 Warfarin Sodium 3 mg WARF PO Last administered on 12/10/24at 17:04; Start 12/08/24 at 17:00; Stop 12/10/24 at 18:04; Status DC Insulin Glargine 15 units HS SQ Last administered on 12/08/24at 20:29; Start 12/08/24 at 21:00; Stop 12/08/24 at 22:03; Status DC Insulin Human Regular 5 unit TIDAC SQ Last administered on 12/08/24at 18:07; Start 12/08/24 at 17:00; Stop 12/08/24 at 22:03; Status DC Metoprolol Succinate 25 mg DAILY PO Last administered on 12/13/24at 08:35; Start 12/09/24 at 09:00; Stop 01/08/25 at 08:59 Heparin Sodium/ Dextrose 250 ml @ 0 mls/hr PROTOCOL IV Last administered on 12/13/24at 16:02; Start 12/08/24 at 15:00; Stop 01/07/25 at 14:59 Insulin Glargine 30 units DAILY SQ Last administered on 12/09/24at 09:00; Start 12/09/24 at 09:00; Stop 12/10/24 at 07:22; Status DC Insulin Human Regular 12 unit TIDAC SQ Last administered on 12/09/24at 11:30; Start 12/09/24 at 07:30; Stop 12/10/24 at 07:22; Status DC Cyclobenzaprine HCl 5 mg ONCE ONCE PO Last administered on 12/08/24at 23:24; Start 12/08/24 at 23:30; Stop 12/08/24 at 23:31; Status DC Heparin Sodium (Porcine) 5,000 unit STK-MED ONCE .ROUTE Last administered on 12/09/24at 11:44; Start 12/09/24 at 11:44; Stop 12/09/24 at 11:44; Status DC Ceftriaxone Sodium 1 gm Q24H IVPB Last administered on 12/13/24at 13:07; Start 12/09/24 at 12:30; Stop 12/19/24 at 12:29 Morphine Sulfate 2 mg Q4H PRN IVP Last administered on 12/11/24at 00:07; Start 12/10/24 at 03:30; Stop 12/17/24 at 03:29 Insulin Glargine 25 units DAILY SQ Last administered on 12/13/24at 13:10; Start 12/10/24 at 09:00; Stop 01/09/25 at 08:59 Insulin Human Regular 6 unit TIDAC SQ Last administered on 12/11/24at 16:49; Start 12/10/24 at 07:30; Stop 12/12/24 at 11:54; Status DC Warfarin Sodium 4 mg WARF PO; Start 12/11/24 at 17:00; Stop 12/11/24 at 12:32; Status DC Warfarin Sodium 1 mg ONCE ONCE PO Last administered on 12/10/24at 18:19; Start 12/10/24 at 18:30; Stop 12/10/24 at 18:31; Status DC Insulin Human Regular 6 unit ONCE ONCE SQ Last administered on 12/11/24at 08:16; Start 12/11/24 at 08:30; Stop 12/11/24 at 08:31; Status DC Warfarin Sodium 4 mg WARF PO Last administered on 12/13/24at 15:56; Start 12/13/24 at 16:00; Stop 12/13/24 at 17:08; Status DC Warfarin Sodium 5 mg ONCE ONCE PO Last administered on 12/11/24at 16:48; Start 12/11/24 at 17:00; Stop 12/11/24 at 17:01; Status DC Warfarin Sodium 5 mg ONCE ONCE PO Last administered on 12/12/24at 17:49; Start 12/12/24 at 16:00; Stop 12/12/24 at 16:01; Status DC Spironolactone 25 mg DAILY PO Last administered on 12/13/24at 08:35; Start 12/12/24 at 09:00; Stop 01/11/25 at 08:59 Insulin Human Regular 8 unit TIDAC SQ Last administered on 12/13/24at 17:46; Start 12/12/24 at 17:00; Stop 01/11/25 at 16:59 Magnesium Citrate 296 ml ONCE ONCE PO; Start 12/13/24 at 16:30; Stop 12/13/24 at 16:31; Status DC Bumetanide 1 mg DAILY PO; Start 12/14/24 at 09:00; Stop 01/13/25 at 08:59 MARYBEL MARINELLI MD Dec 13, 2024 20:15
[2024-12-14 02:07] LABS: IMMATURE GRANULOCYTE ABSOLUTE 0.02 K/uL (0-1); NUCLEATED RED BLOOD CELLS 0.0 % (0.0-0.19); PLATELET COUNT (AUTO) 191 K/uL (130-400); RED BLOOD CELL COUNT(AUTO) 4.24 MIL/uL (4.00-5.50); RED CELL DISTRIBUTION WIDTH 13.6 % (11.0-15.5); WHITE BLOOD COUNT (AUTO) 7.7 K/uL (4.8-10.8)
[2024-12-14 02:22] VITALS: PULSE 60
[2024-12-14 02:23] LABS: ASPARTATE AMINOTRANSFERASE 45.0 U/L (10-37); CREATININE 0.7 mg/dL (0.5-1.0); GLOMERULAR FILTR. RATE CALC 95.0 mL/min (>90); GLUCOSE,RANDOM 122.0 mg/dL (70-105); SODIUM SERUM 138.0 mmol/L (136-145); TOTAL PROTEIN, SERUM 6.5 g/dL (6.0-8.3); UREA NITROGEN, BLOOD 22.0 mg/dL (7-18)
[2024-12-14 02:41] LABS: INR 2.18 (0.85-1.15)
[2024-12-14 04:34] VITALS: BP 96/50; PULSE 56; RESP 18; TEMP 98.4
[2024-12-14 07:30] VITALS: O2SAT 98
[2024-12-14 07:57] VITALS: BP 93/56; PULSE 65; RESP 16; TEMP 97.8
[2024-12-14] MEDS: BUMETANIDE 1 MG TAB PO SCH (09:12)
[2024-12-14] MEDS: PoTASSium chloRIDE 20MEQ ER 20 MEQ ERTAB PO ONE (09:44)
[2024-12-14 11:33] VITALS: BP 116/57; PULSE 65; RESP 16; TEMP 97.6
[2024-12-14] MEDS ORDERED: FAMO20TA8 PO (13:21)
[2024-12-14] MEDS ORDERED: BUME1TAB6 PO (13:21)
[2024-12-14] MEDS ORDERED: METO25TA3 PO (13:21)
[2024-12-14] MEDS ORDERED: SPIR25TA6 PO (13:21)
[2024-12-14] MEDS ORDERED: LISI10TA24 PO (13:21)
--- NOTE | 2024-12-14 13:33 | DS ---
Discharge Summary Hospital Course Summary: DATE OF ADMISSION:[12/08/2024] DATE OF DISCHARGE:[12/14/2024] DISPOSITION:[Home] CONDITION:[Medically stable] CONSULTANTS:[Metal Numerical Tool Programmer, manager transition] FOLLOW UP APPOINTMENTS:[PCP 2 to 3 days. Metal Numerical Tool Programmer within one week. University Demonstrator in 2 to 3 weeks] PROCEDURES:[None] IMAGING: report attached to summary MICROBIOLOGY: report attached to summary ACTIVITY:[Independent] HOME MEDICATIONS: see [facility] NEW MEDICATIONS:[Bumex 1 mg p.o. daily, famotidine 20 mg p.o. b.i.d., lisinopril 10 mg at bedtime. Metoprolol 25 mg p.o. daily, spironolactone 25 mg p.o. daily. A written prescription was given by manager transition for Lantus 30 units daily. Metformin 500 mg b.i.d. and glipizide ER 5 mg daily] EMERGENCY INSTRUCTIONS: The patient was instructed to present to the nearest Emergency departmentr or call 911 once their symptoms will return or worsen Impregnator Operator(s): Patient is 64 years old female who came to emergency department for evaluation of acute onset of shortness of breaths that started about 4:00 a.m. and night prior coming to the hospital/admission. Patient stated that she woke up with a short of breaths and dizziness and fall like she had low sugar 2D echo showed LVEF of 20 to 25% systolic and diastolic dysfunction from 2022 the repeat one showed LVEF 15 to 20% NYHA to stage D. She also has a history of mechanical aortic valve and coronary artery bypass grafting in 2004. Patient was on Coumadin 2 mg daily. Throughout the hospitalization cash posting specialist was consulted and as per their recommendation optimize GDMT to Toprol XL 25 mg daily and Lisinopril 10 mg daily , Aldactone 25 mg daily . Once the patient will complete six months of GDMT they will consider AICD. Regards severe aortic stenosis s/p mechanical AVR patient was recommended to continue Coumadin 5 mg every 24 hours p.o.. Goal INR is 2 to 3. Today INR was 2.18 and patient was cleared to be discharged home. For uncontrolled diabetes mellitus type 2 manager transition was consulted and today patient was cleared to be discharged on Lantus 30 units a day, metoprolol 500 mg b.i.d. and glipizide ER 5 mg daily. Most recent chest x- ray negative. Patient to be discharged home follow with the PCP in 2 to 3 days. Follow up with cash posting specialist within one week and follow up with manager transition within 2 to 3 weeks. Patient and family members at the bedside understood the further plan. Procedure(s): REVIEW OF SYSTEMS CONSTITUTIONAL: Denies fevers, chills, or night sweats. No unintentional weight loss reported. NEUROLOGICAL: Denies headache, amaurosis fugax, motor weakness, sensory deficit, vertigo/spinning sensation, gait abnormalities, or tremors. ENT: No hearing loss, otalgia, otorrhea, rhinitis, rhinorrhea, hoarseness, or sore throat. CARDIOVASCULAR: Denies any shortness of breaths PULMONARY: Denies any shortness of breath, cough, phlegm/sputum, hemoptysis, pleuritic chest pain. SLEEP: Denies morning headaches, daytime somnolence or napping. Denies di fficulty falling asleep, staying asleep, waking from sleep. Denies knowledge of snoring. GASTROINTESTINAL: Denies any type of dysphagia to either liquids or solids. Denies nausea, vomiting, pyrosis, early satiety, abdominal pain, diarrhea, constipation, or changes in stool consistency or caliber. Denies coffee-ground emesis, hematemesis, hematochezia, or melanotic stools. GENITOURINARY: Denies frequency, urgency, nocturia, hematuria or incontinence (Storage/Irritative symptoms.) Low urinary stream, straining to void, urinary intermittency or hesitancy, splitting of the voiding stream, terminal dribbling. ENDOCRINOLOGIC: Denies polyuria, polydipsia, polyphagia or heat/cold intolerances. HEMATOLOGIC: Denies thrombophilia/previous clots, or coagulopathy/bleeding disorders. ONCOLOGIC: Denies personal history of malignancy. DERMATOLOGIC: Denies rashes or pruritus. PSYCHIATRIC: Denies any suicidal or homicidal ideation. Denies hallucinations. PHYSICAL EXAM GENERAL APPEARANCE: The patient is awake, alert, and oriented, in no acute cardiopulmonary distress. Patient is sitting up in the bed, she is obese NEUROLOGICAL: Cranial nerves II-XII grossly intact. Motor is 5/5 in bilateral upper and lower extremities proximal to distal. No sensory deficits. HEENT: Face is symmetric. Pupils are equal and reactive. Extraocular movements are intact. NECK: Supple. No JVD. No thyromegaly. No submental, submandibular, pre- /postauricular, occipital or supraclavicular lymphadenopathy. CHEST: Normal chest expansion. No Telemetry. LUNGS: minimal Crackles noted of bilateral lung bases improved CARDIOVASCULAR: Regular. Mechanical click auscultated. No appreciable rubs, murmurs or gallops. ABDOMEN: Soft, nontender, and nondistended. There is no rebound, voluntary guarding, or rigidity. : Deferred. No Salguero. EXTREMITIES: Trace edema of the lower extremities. No clubbing. Good capillary refill. SKIN: No skin breakdown. Assessment/Plan: ASSESSMENT: Acute on chronic systolic and diastolic heart failure exacerbation with LVEF of 20-25 % from 2D echo in 2022, POA Cardiogenic edema with hypoxemic respiratory failure, POA Uncontrolled hyperglycemia, POA For outpatient cardiac follow up POA Acute complicated cystitis POA Urine culture positive for E coli Coronary artery disease with remote coronary artery bypass grafting in 2004, POA Previous mechanical aortic valve placement in 2004, POA History of possible thrombus involving the left ventricular apex from 2D echocardiogram from , POA chronic anticoagulation with warfarin for mechanical valve, POA Hypertension, POA right upper lobe pulmonary nodule measuring 12 mm, POA Poorly controlled type 2 diabetes mellitus, POA Obesity, POA Home Medications: Reported Medications Warfarin Sodium (Warfarin Sodium) 2 Mg Tablet, 1 TAB PO DAILY for 30 Days, #30 TAB 0 Refills 12/08/24 Atorvastatin Calcium (Atorvastatin Calcium) 40 Mg Tablet, 1 TAB PO HS for 30 Days, #30 TAB 0 Refills 12/08/24 Lisinopril (Lisinopril) 10 Mg Tablet, 1 TAB PO DAILY for 30 Days, #30 TAB 0 Refills 12/08/24 Time spent arranging discharge: 31-60 minutes ATTESTATION BY PHYSICIAN I have seen and examined the patient. I reviewed the documentation, medical decision making, and treatment plan as noted by the mid-level provider above. I agree with the findings and plan of care. Becky Shell MD, KATARZYNA B MICROFILM OPERATOR Dec 14, 2024 13:33
--- NOTE | 2024-12-14 14:15 | NUR ---
PT WAS GIVEN INSTRUCTIONS ON INSULIN INJECTIONS AND ON DR'S APPOINTMENTS. PT HAS BEEN ADVISED TO TAKE MEDS ORDERED AND KEEP APPOINTMENTS.
--- NOTE | 2024-12-14 21:24 | PN ---
Endocrinology progress note DOS: 12/14/24 subjective: Home diabetic regimen: she does not take any medications Hba1c 12.9% glucose are improving now. REVIEW OF SYSTEMS CONSTITUTIONAL: Denies fevers, chills, or night sweats. No unintentional weight loss reported. NEUROLOGICAL: Denies headache, amaurosis fugax, motor weakness, sensory deficit, vertigo/spinning sensation, gait abnormalities, or tremors. ENT: No hearing loss, otalgia, otorrhea, rhinitis, rhinorrhea, hoarseness, or sore throat. CARDIOVASCULAR: Shortness of breath close improved PULMONARY: Denies any shortness of breath, cough, phlegm/sputum, hemoptysis, pleuritic chest pain. SLEEP: Denies morning headaches, daytime somnolence or napping. Denies difficulty falling asleep, staying asleep, waking from sleep. Denies knowledge of snoring. GASTROINTESTINAL: Denies any type of dysphagia to either liquids or solids. Denies nausea, vomiting, pyrosis, early satiety, abdominal pain, diarrhea, constipation, or changes in stool consistency or caliber. Denies coffee-ground emesis, hematemesis, hematochezia, or melanotic stools. GENITOURINARY: Denies frequency, urgency, nocturia, hematuria or incontinence (Storage/Irritative symptoms.) Low urinary stream, straining to void, urinary intermittency or hesitancy, splitting of the voiding stream, terminal dribbling. ENDOCRINOLOGIC: Denies polyuria, polydipsia, polyphagia or heat/cold intolerances. HEMATOLOGIC: Denies thrombophilia/previous clots, or coagulopathy/bleeding disorders. ONCOLOGIC: Denies personal history of malignancy. DERMATOLOGIC: Denies rashes or pruritus. PSYCHIATRIC: Denies any suicidal or homicidal ideation. Denies hallucinations. 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 CLINICAL HISTORY: Shortness of breath COMPARISON: Prior chest radiograph dated October 15, 2022 FINDINGS: Poststernotomy status. Moderate cardiomegaly with bilateral hilar congestion. Patchy, ill-defined infiltrates in the bilateral lower lobes and subtle blunting of the bilateral costophrenic angle are probably a minimal bilateral pleural effusion. No evidence of pneumothorax. Stable 12 mm nodular density in the right upper zone. No acute osseous abnormality. Mild degenerative changes in the mid and lower thoracic spine. IMPRESSION: Poststernotomy status. Moderate cardiomegaly with bilateral hilar congestion. Patchy, ill-defined infiltrates in the bilateral lower lobes and subtle blunting of the bilateral costophrenic angle are probably a minimal bilateral pleural effusion. No evidence of pneumothorax. Stable 12 mm nodular density in the right upper zone. Compared to the prior study, there is a mild decrease in the right-sided pleural effusion and interval development of right lower lobe infiltrates. /[place] DICTATED BY: KENNY VALDERRAMA Jr., MD DATE: 12/08/24840 ELECTRONICALLY SIGNED BY: KENNY VALDERRAMA Jr., MD DATE: 12/08/24840 ASSESSMENT: Uncontrolled hyperglycemia, POA Home diabetic regimen: she does not take any medications Hba1c 12.9% glucose are improving and insulin adjusted. Acute on chronic systolic and diastolic heart failure exacerbation with LVEF of 20-25 % from 2D echo in 2022, POA Cardiogenic edema with hypoxemic respiratory failure, POA For outpatient cardiac follow up POA History of coronary artery bypass grafting in 2004, POA History of mechanical aortic valve placement in 2004, POA History of possible thrombus involving the left ventricular apex from 2D echocardiogram from , POA History of chronic anticoagulation with warfarin for mechanical valve, POA Hypertension, POA History of right upper lobe pulmonary nodule measuring 12 mm, POA Poorly controlled type 2 diabetes mellitus, POA Obesity, POA PLAN: continue Lantus 25 units daily increase Regular insulin to 12 units three times before meals and adjust for post-prandial glucose. Continue high dose sliding scale insulin. Monitor glucose q x 6 hourly. Continue carb consistent diet. Keep glucose less than 180 mg/dl. Vitals/Labs Vital Signs Date Time Temp Pulse Resp B/P (MAP) Pulse Ox O2 Delivery O2 Flow Rate FiO2 12/14/24 11:33 97.5 65 16 116/57 98 Room Air 12/14/24 07:30 0 21 Laboratory Tests 12/14/24 02:01 Medications Current Medications Sodium Chloride 1,000 ml @ 0 mls/hr ONCE ONCE IV Last administered on 12/08/24at 08:13; Start 12/08/24 at 08:00; Stop 12/08/24 at 09:33; Status DC Insulin Human Regular 10 unit ONCE ONCE IV; Start 12/08/24 at 08:00; Stop 12/08/24 at 07:44; Status DC Insulin Human Regular 5 unit ONCE ONCE SQ Last administered on 12/08/24at 08:07; Start 12/08/24 at 08:00; Stop 12/08/24 at 08:01; Status DC Furosemide 40 mg ONCE ONCE IV Last administered on 12/08/24at 11:35; Start 12/08/24 at 10:00; Stop 12/08/24 at 10:01; Status DC Budesonide 0.5 mg BIDRESP IH Last administered on 12/10/24at 07:08; Start 12/08/24 at 18:00; Stop 12/10/24 at 17:23; Status DC Potassium Chloride 100 ml @ 100 mls/hr AD PRN IV; Start 12/08/24 at 10:00; Stop 12/14/24 at 14:37; Status DC Potassium Chloride 20 meq AD PRN PO Last administered on 12/09/24at 13:32; Start 12/08/24 at 10:00; Stop 12/14/24 at 14:37; Status DC Potassium Chloride 20 meq AD PRN PO Last administered on 12/14/24at 06:31; Start 12/08/24 at 10:00; Stop 12/14/24 at 14:37; Status DC Magnesium Sulfate 50 ml @ 0 mls/hr PROTOCOL IV Last administered on 12/08/24at 22:40; Start 12/08/24 at 10:00; Stop 12/14/24 at 14:37; Status DC Acetaminophen 650 mg Q6H PRN PO Last administered on 12/09/24at 21:40; Start 12/08/24 at 10:00; Stop 12/14/24 at 14:37; Status DC Ondansetron HCl 4 mg Q6H PRN IVP; Start 12/08/24 at 10:00; Stop 12/14/24 at 14:37; Status DC Insulin Human Regular INSULIN SLIDING SCAL... ACHS SQ Last administered on 12/13/24at 20:40; Start 12/08/24 at 11:30; Stop 12/14/24 at 14:37; Status DC Furosemide 40 mg BID IV Last administered on 12/13/24at 08:35; Start 12/08/24 at 21:00; Stop 12/13/24 at 17:08; Status DC Famotidine 20 mg BID PO Last administered on 12/14/24at 09:12; Start 12/08/24 at 21:00; Stop 12/14/24 at 14:37; Status DC Lisinopril 10 mg HS PO Last administered on 12/13/24at 20:40; Start 12/08/24 at 21:00; Stop 12/14/24 at 14:37; Status DC Warfarin Sodium 3 mg WARF PO Last administered on 12/10/24at 17:04; Start 12/08/24 at 17:00; Stop 12/10/24 at 18:04; Status DC Insulin Glargine 15 units HS SQ Last administered on 12/08/24at 20:29; Start 12/08/24 at 21:00; Stop 12/08/24 at 22:03; Status DC Insulin Human Regular 5 unit TIDAC SQ Last administered on 12/08/24at 18:07; Start 12/08/24 at 17:00; Stop 12/08/24 at 22:03; Status DC Metoprolol Succinate 25 mg DAILY PO Last administered on 12/14/24at 09:12; Start 12/09/24 at 09:00; Stop 12/14/24 at 14:37; Status DC Heparin Sodium/ Dextrose 250 ml @ 0 mls/hr PROTOCOL IV Last administered on 10/14/25at 16:02; Start 12/08/24 at 15:00; Stop 12/14/24 at 14:37; Status DC Insulin Glargine 30 units DAILY SQ Last administered on 12/09/24at 09:00; Start 12/09/24 at 09:00; Stop 12/10/24 at 07:22; Status DC Insulin Human Regular 12 unit TIDAC SQ Last administered on 12/09/24at 11:30; Start 12/09/24 at 07:30; Stop 12/10/24 at 07:22; Status DC Cyclobenzaprine HCl 5 mg ONCE ONCE PO Last administered on 12/08/24at 23:24; Start 12/08/24 at 23:30; Stop 12/08/24 at 23:31; Status DC Heparin Sodium (Porcine) 5,000 unit STK-MED ONCE .ROUTE Last administered on 12/09/24at 11:44; Start 12/09/24 at 11:44; Stop 12/09/24 at 11:44; Status DC Ceftriaxone Sodium 1 gm Q24H IVPB Last administered on 12/13/24at 13:07; Start 12/09/24 at 12:30; Stop 12/14/24 at 14:37; Status DC Morphine Sulfate 2 mg Q4H PRN IVP Last administered on 12/11/24at 00:07; Start 12/10/24 at 03:30; Stop 12/14/24 at 14:37; Status DC Insulin Glargine 25 units DAILY SQ Last administered on 12/14/24at 09:18; Start 12/10/24 at 09:00; Stop 12/14/24 at 14:37; Status DC Insulin Human Regular 6 unit TIDAC SQ Last administered on 12/11/24at 16:49; Start 12/10/24 at 07:30; Stop 12/12/24 at 11:54; Status DC Warfarin Sodium 4 mg WARF PO; Start 12/11/24 at 17:00; Stop 12/11/24 at 12:32; Status DC Warfarin Sodium 1 mg ONCE ONCE PO Last administered on 12/10/24at 18:19; Start 12/10/24 at 18:30; Stop 12/10/24 at 18:31; Status DC Insulin Human Regular 6 unit ONCE ONCE SQ Last administered on 12/11/24at 08:16; Start 12/11/24 at 08:30; Stop 12/11/24 at 08:31; Status DC Warfarin Sodium 4 mg WARF PO Last administered on 12/13/24at 15:56; Start 12/13/24 at 16:00; Stop 12/13/24 at 17:08; Status DC Warfarin Sodium 5 mg ONCE ONCE PO Last administered on 12/11/24at 16:48; Start 12/11/24 at 17:00; Stop 12/11/24 at 17:01; Status DC Warfarin Sodium 5 mg ONCE ONCE PO Last administered on 12/12/24at 17:49; Start 12/12/24 at 16:00; Stop 12/12/24 at 16:01; Status DC Spironolactone 25 mg DAILY PO Last administered on 12/14/24at 09:12; Start 12/12/24 at 09:00; Stop 12/14/24 at 14:37; Status DC Insulin Human Regular 8 unit TIDAC SQ Last administered on 12/13/24at 17:46; Start 12/12/24 at 17:00; Stop 12/13/24 at 20:16; Status DC Magnesium Citrate 296 ml ONCE ONCE PO; Start 12/13/24 at 16:30; Stop 12/13/24 at 16:31; Status DC Bumetanide 1 mg DAILY PO Last administered on 12/14/24at 09:12; Start 12/14/24 at 09:00; Stop 12/14/24 at 14:37; Status DC Insulin Human Regular 10 unit TIDAC SQ Last administered on 12/14/24at 13:17; Start 12/14/24 at 07:30; Stop 12/14/24 at 14:37; Status DC Potassium Chloride 40 meq ONCE ONCE PO Last administered on 12/14/24at 09:44; Start 12/14/24 at 09:30; Stop 12/14/24 at 09:31; Status DC MARYBEL MARINELLI MD Dec 14, 2024 21:24
== END 2024-12-14 14:20 | disposition home or self-care (01) | DRG 291 ==
LOC: EDH 06:37 → EDHIP 09:53 → 2AH 13:58
PROVIDERS: ADMIT Internal Medicine; ATTEND Internal Medicine
DX: I11.0 Hypertensive heart disease with heart failure (principal); I50.43 Acute on chronic combined systolic (congestive) and diastolic (congestive) heart failure; J96.91 Respiratory failure, unspecified with hypoxia; T82.857A Stenosis of other cardiac prosthetic devices, implants and grafts, initial encounter; N30.00 Acute cystitis without hematuria; E66.01 Morbid (severe) obesity due to excess calories; E11.65 Type 2 diabetes mellitus with hyperglycemia; Z20.822 Contact with and (suspected) exposure to COVID-19; B96.20 Unspecified Escherichia coli [E. coli] as the cause of diseases classified elsewhere; I25.10 Atherosclerotic heart disease of native coronary artery without angina pectoris; I25.5 Ischemic cardiomyopathy; I35.0 Nonrheumatic aortic (valve) stenosis; R79.1 Abnormal coagulation profile; E78.00 Pure hypercholesterolemia, unspecified; Y83.8 Other surgical procedures as the cause of abnormal reaction of the patient, or of later complication, without mention of misadventure at the time of the procedure; I44.7 Left bundle-branch block, unspecified; Z79.01 Long term (current) use of anticoagulants; Z79.899 Other long term (current) drug therapy; Z91.199 Patient's noncompliance with other medical treatment and regimen due to unspecified reason; Z95.1 Presence of aortocoronary bypass graft; Z95.2 Presence of prosthetic heart valve; Z68.38 Body mass index [BMI] 38.0-38.9, adult; Y92.89 Other specified places as the place of occurrence of the external cause
CPT/HCPCS: 36415; 71045; 71250; 80048; 80053; 80076; 80305; 81001; 82948; 83036; 83615; 83735; 83880; 84132; 84145; 84443; 84484; 85025; 85027; 85610; 85730; 86140; 87086; 87186; 87635; 87804; 93005; 93306; 94640; 94664; 96360; 99285; G0378; J0696; J1644; J1815; J1938; J2270; J3475